=== PATIENT | male | born 1970 | race Caucasian/White ===

== ENCOUNTER 2018-03-04 01:46 | Outpatient (CLI) | payer OTHER, SELFPAY ==
[2018-03-04 11:15] LABS: INR 2.6 (1.0-3.5); Prothrombin Time 24.5 sec (9.3-10.8)
== END 2018-03-04 02:06 ==
PROVIDERS: PCP Family Medicine; Visit Provider Family Medicine
DX: I26.99 Other pulmonary embolism without acute cor pulmonale (principal); Z79.01 Long term (current) use of anticoagulants
CPT/HCPCS: 36415; 85610

== ENCOUNTER 2018-04-03 02:50 | Outpatient (CLI) | payer OTHER, SELFPAY ==
[2018-04-03 13:25] LABS: INR 2.2 (1.0-3.5); Prothrombin Time 20.9 sec (9.3-10.8)
== END 2018-04-03 03:10 ==
PROVIDERS: PCP Family Medicine; Visit Provider Family Medicine
DX: I26.99 Other pulmonary embolism without acute cor pulmonale (principal); Z79.01 Long term (current) use of anticoagulants
CPT/HCPCS: 36415; 85610

== ENCOUNTER 2018-05-06 01:42 | Outpatient (CLI) | payer OTHER, SELFPAY ==
[2018-05-06 10:44] LABS: INR 2.2 (1.0-3.5); Prothrombin Time 21.2 sec (9.3-10.8)
== END 2018-05-06 02:02 ==
PROVIDERS: PCP Family Medicine; Visit Provider Family Medicine
DX: I26.99 Other pulmonary embolism without acute cor pulmonale (principal); Z79.01 Long term (current) use of anticoagulants
CPT/HCPCS: 36415; 85610

== ENCOUNTER 2018-06-09 02:06 | Outpatient (CLI) | payer OTHER, SELFPAY ==
[2018-06-09 11:19] LABS: INR 2.5 (1.0-3.5); Prothrombin Time 23.5 sec (9.3-10.8)
== END 2018-06-09 02:26 ==
PROVIDERS: PCP Family Medicine; Visit Provider Family Medicine
DX: I26.99 Other pulmonary embolism without acute cor pulmonale (principal); Z79.01 Long term (current) use of anticoagulants
CPT/HCPCS: 36415; 85610

== ENCOUNTER 2018-07-08 01:08 | Outpatient (CLI) | payer OTHER, SELFPAY ==
[2018-07-08 11:59] LABS: Prothrombin Time 19.9 sec (9.3-11.0)
== END 2018-07-08 01:28 ==
PROVIDERS: PCP Family Medicine; Visit Provider Family Medicine
DX: I26.99 Other pulmonary embolism without acute cor pulmonale (principal)
CPT/HCPCS: 36415; 85610

== ENCOUNTER 2018-08-11 03:00 | Outpatient (CLI) | payer OTHER, SELFPAY ==
[2018-08-11 11:53] LABS: INR 2.7 (0.9-1.1); Prothrombin Time 26.8 sec (9.3-11.0)
== END 2018-08-11 03:20 ==
PROVIDERS: PCP Family Medicine; Visit Provider Family Medicine
DX: I26.99 Other pulmonary embolism without acute cor pulmonale (principal); Z79.01 Long term (current) use of anticoagulants
CPT/HCPCS: 36415; 85610

== ENCOUNTER 2018-08-25 18:45 | Outpatient (REF) | payer OTHER, SELFPAY | END 2018-08-25 19:05 | LOC: LBN 18:45 | PROVIDERS: PCP Family Medicine; Visit Provider Nurse Practitioner Family | DX: R05 Cough (principal) | CPT/HCPCS: 87070 ==

== ENCOUNTER 2018-09-09 03:04 | Outpatient (CLI) | payer OTHER, SELFPAY ==
[2018-09-09 10:56] LABS: INR 2.5 (0.9-1.1); Prothrombin Time 25.3 sec (9.3-11.0)
== END 2018-09-09 03:24 ==
PROVIDERS: PCP Family Medicine; Visit Provider Family Medicine
DX: I26.99 Other pulmonary embolism without acute cor pulmonale (principal); Z79.01 Long term (current) use of anticoagulants
CPT/HCPCS: 36415; 85610

== ENCOUNTER 2018-10-07 01:08 | Outpatient (CLI) | payer OTHER, SELFPAY ==
[2018-10-07 10:35] LABS: INR 2.3 (0.9-1.1)
== END 2018-10-07 01:28 ==
PROVIDERS: PCP Family Medicine; Visit Provider Family Medicine
DX: I26.99 Other pulmonary embolism without acute cor pulmonale (principal); Z79.01 Long term (current) use of anticoagulants
CPT/HCPCS: 36415; 85610

== ENCOUNTER 2018-11-10 02:00 | Outpatient (CLI) | payer OTHER, SELFPAY ==
[2018-11-10 12:25] LABS: INR 2.2 (0.9-1.1); Prothrombin Time 21.8 sec (9.3-11.0)
== END 2018-11-10 02:20 ==
PROVIDERS: PCP Family Medicine; Visit Provider Family Medicine
DX: I26.99 Other pulmonary embolism without acute cor pulmonale (principal); Z79.01 Long term (current) use of anticoagulants
CPT/HCPCS: 36415; 85610

== ENCOUNTER 2018-12-09 01:50 | Outpatient (CLI) | payer OTHER, SELFPAY ==
[2018-12-09 11:03] LABS: INR 2.6 (0.9-1.1); Prothrombin Time 26.3 sec (9.3-11.0)
== END 2018-12-09 02:10 ==
PROVIDERS: PCP Family Medicine; Visit Provider Family Medicine
DX: I26.99 Other pulmonary embolism without acute cor pulmonale (principal); Z79.01 Long term (current) use of anticoagulants
CPT/HCPCS: 36415; 85610

== ENCOUNTER 2019-01-13 01:56 | Outpatient (CLI) | payer OTHER, SELFPAY ==
[2019-01-13 11:19] LABS: INR 2.2 (0.9-1.1); Prothrombin Time 21.9 sec (9.3-11.0)
== END 2019-01-13 02:16 ==
PROVIDERS: PCP Family Medicine; Visit Provider Family Medicine
DX: I26.99 Other pulmonary embolism without acute cor pulmonale (principal); Z79.01 Long term (current) use of anticoagulants
CPT/HCPCS: 36415; 85610

== ENCOUNTER 2019-02-11 06:54 | Emergency (ER) | payer OTHER, SELFPAY ==
[2019-02-11 06:56] VITALS: BP 136/74; PULSE 96; RESP 16; TEMP 36.8; O2SAT 96
[2019-02-11] MEDS: Lidocaine 5% Patch 1 PATCH (07:32)
--- NOTE | 2019-02-11 07:57 | ED.GENADUL_ITS ---
Discharge Plan Disposition Patient Disposition: HOME Condition: Stable Discharge Details Chief Complaint: Nk/Back Pain Clinical Impression: Right flank pain Primary Care Provider: Emmanuel Yanes ED Provider: Caden Rojas Home Meds and New Rx's Prescriptions: New oxycodone 5 mg tablet 5 mg PO Q8H PRN (Reason: pain) Qty: 12 RF: 0 ondansetron 4 mg tablet,disintegrating 4 mg PO Q8H PRN (Reason: nausea and vomiting) Qty: 30 RF: 0 No Action atorvastatin 40 mg tablet 40 mg PO HS Qty: 90 RF: 4 triamcinolone acetonide 15 GM cream 15 gm Topical BID Qty: 30 RF: 2 chlorthalidone 25 mg tablet 25 mg PO DAILY Qty: 90 RF: 3 lisinopril 30 mg tablet 30 mg PO DAILY Qty: 90 RF: 3 metoprolol succinate [Toprol XL] 50 mg tablet extended release 24 hr 50 mg PO DAILY Qty: 90 RF: 3 warfarin 5 mg tablet 10 mg PO DAILY Qty: 100 RF: 5 Discharge Instructions Instructions: Back Pain (ED) Additional Instructions: follow up with your primary care provider within 1- 2 weeks. You should also have your inr rechecked as it was mildly elevated today if you have severe worsening pain, weakness, difficulty urinating or feel more ill return to the emergency department take 1000mg tylenol every 6 hours and occasional doses of 600mg ibuprofen as needed Stand Alone Forms: Physical Therapy Referral Medical Decision Making 49 yo male with hx of PE on coumadin sciatica, htn, who comes in with chief complaint of left lower back pain for a week with no trauma or falls. Denies fevers, chills, difficulty urinating or changes in bowel habits. He has no hx of ivdu per pt. HE denies abdominal pain or vomit, no chest pain or sob. HE does appear uncomfortable, has pain with palpation to the left lower back, no midline back tenderness, no saddle anesthesia. Based on hx and exam unlikely cauda equina or sea. I suspect muscle spasm but given his degree of pain will image to eval for possible kidney stone ct shows no acute process per Dr. Whittington, has nonbostructing left kidney stone. He does feel better after opiates and continues to have reassuring neuro exam so do not feel mri inidciated. suspect lumbar strain vs muscle spasm. Given his degree of pain will prescribe short course of opiates after discussion of risks/benefits. Will also have him start pt and f/u with pcp and return precautions given Differential Diagnosis kidney stone, muscle spasm Imaging Data Radiologic Study: Attestation: I personally reviewed and interpreted this imaging study as follows: Imaging: CT Scan Radiologist's impression: per dr. whittington no significant acute abnormalities Lab Data Lab results reviewed: Yes I reviewed the patient's lab results. HPI General Mode of arrival: ambulatory . Date/Time Provider Initiated Documentation: 02/11/19 07:50 . Limitations to Documentation: no limitations . Information obtained by: patient . History of Present Illness 49 year old M presents to the emergency department with the chief complaint of lower back pain, described as moderate, Quality is described as aching, and it has been constant. No relieving factors improve symptom(s), No exacerbating factors reported . Patient did receive the following treatments prior to arrival, none Related Data Home Medications Medication Instructions Recorded Confirmed triamcinolone acetonide 15 gm TOPICAL BID #30 g 07/29/17 02/11/19 chlorthalidone 25 mg tablet 25 mg PO DAILY #90 tab-cap 09/01/18 02/11/19 lisinopril 30 mg tablet 30 mg PO DAILY #90 tab-cap 09/01/18 02/11/19 metoprolol succinate 50 mg 50 mg PO DAILY #90 tab 11/25/18 02/11/19 tablet,extended release 24 hr warfarin 5 mg tablet 10 mg PO DAILY #100 tab 01/05/19 02/11/19 atorvastatin 40 mg tablet 40 mg PO HS #90 tab 01/29/19 02/11/19 ondansetron 4 mg PO Q8H PRN #30 tab 02/11/19 oxycodone 5 mg PO Q8H PRN #12 tab 02/11/19 Previous Rx's Medication Instructions Recorded triamcinolone acetonide 15 gm TOPICAL BID #30 g 07/29/17 chlorthalidone 25 mg tablet 25 mg PO DAILY #90 tab-cap 09/01/18 lisinopril 30 mg tablet 30 mg PO DAILY #90 tab-cap 09/01/18 metoprolol succinate 50 mg 50 mg PO DAILY #90 tab 11/25/18 tablet,extended release 24 hr warfarin 5 mg tablet 10 mg PO DAILY #100 tab 01/05/19 atorvastatin 40 mg tablet 40 mg PO HS #90 tab 01/29/19 ondansetron 4 mg PO Q8H PRN #30 tab 02/11/19 oxycodone 5 mg PO Q8H PRN #12 tab 02/11/19 Allergies Allergy/AdvReac Type Severity Reaction Status Date / Time No Known Allergies Allergy Verified 02/11/19 07:01 General Stated Complaint: Nk/Back Pain LINDY: 4 Review of Systems Review of Systems All systems reviewed & are unremarkable except as noted in HPI and below Constitutional Denies chills, Denies fever(s) and Denies weakness Cardiovascular Denies chest pain and Denies dyspnea Respiratory Denies cough and Denies dyspnea Gastrointestinal Denies abdominal pain, Denies nausea and Denies vomiting Musculoskeletal Denies joint swelling Neurologic Denies weakness PFSH Family History Mother No problems noted. Father No problems noted. Sister No problems noted. Grandfather Stroke Grandfather No problems noted. Grandmother Heart disease Stroke Grandmother No problems noted. Social History Smoking/Tobacco Use Status: Current every day Tobacco Type: cigarettes Alcohol Intake: never Drug use: Never Do you feel safe at home: Yes Do you feel safe in your relationship?: Yes Exam Const General: other (uncomfortable, in pain) Orientation: alert HENMT Head: normal to inspection Ears: external ears normal General nose exam: external nose normal Mouth: moist mucous membranes Eyes General: appearance normal, both eyes and all related structures Neck Neck: normal visual inspection Resp Effort & Inspection: normal respiratory effort and able to speak in complete sentences Cardio Rate: regular rate Skin General skin exam: no rashes or lesions noted Neuro General: alert and oriented x3 Extrem General: normal to inspection Psych Mental Status: mental status grossly normal Course Vital Signs Temperature 36.8 C 02/11/19 06:56 Pulse 96 H 02/11/19 06:56 Respiratory Rate 16 02/11/19 06:56 Blood Pressure 136/74 02/11/19 06:56 Pulse Oximetry 96 02/11/19 06:56 Temperature 36.8 C 02/11/19 06:56 Temperature Source Skin 02/11/19 06:56 Pulse 96 H 02/11/19 06:56 Respiratory Rate 16 02/11/19 06:56 Respiratory Effort Non-Labored 02/11/19 07:00 Blood Pressure 136/74 02/11/19 06:56 Blood Pressure Position Sitting 02/11/19 06:56 Pulse Oximetry 96 02/11/19 06:56 Oxygen Delivery Method Room Air 02/11/19 06:56 Oxygen Flow Rate 0 02/11/19 06:56 Pain Level 10 02/11/19 07:19
[2019-02-11 08:18] LABS: Bilirubin Negative (Negative); Blood Trace-intact (Negative); Clarity Clear (Clear); Glucose Negative (Negative); Ketones Negative (Negative); Leukocyte Esterase Negative (Negative); Nitrite Negative (Negative); Specific Gravity 1.015 (1.005-1.025); Urobilinogen 0.2 EU/dL (Up TO 0.2)
[2019-02-11 08:28] LABS: Bacteria Moderate HPF (Negative); C & S Indicated? No; Casts Negative LPF (Negative); Crystals Negative HPF (Negative); Epithelial Cells Negative HPF (Negative); Mucus Heavy (Negative); Other Cells Rare Renal (Negative); WBC 0-2 HPF (0-5)
[2019-02-11] MEDS: HYDROmorphone 2 MG/ML VIAL 1 MG IVP ×3 (08:32→08:50)
[2019-02-11 08:36] LABS: Abs Immature Grans 0.02 k/cumm (0.0-0.09); Absolute Basophil Count 0.06 k/cumm (0.0-0.2); Absolute Eosinophil Count 0.26 k/cumm (0.0-0.7); Absolute Lymphocyte Count 2.24 k/cumm (1.2-3.4); Absolute Monocyte Count 1.04 k/cumm (0.11-0.7); Absolute Neutrophil Count 6.46 k/cumm (1.2-6.7); Basophils % 0.6; Eosinophils % 2.6; HCT 45.5 % (40.0-50.0); HGB 15.1 g/dL (13.5-17.5); Immature Grans % 0.2; Lymphocytes % 22.2; Mean Corp. HGB Concentration 33.2 g/dL (32.0-36.0); Mean Corpuscular Hemoglobin 29.4 pg (27.0-33.0); Mean Corpuscular Volume 88.7 fL (80-95); Mean Platelet Volume 10.4 fL (8.0-11.0); Monocytes % 10.3; Neutrophils % 64.1; Platelet Count 233 x1000/uL (130-400); RBC 5.13 m/cumm (4.50-6.00); RBC Distribution Width 14.2 % (11.8-14.1); White Blood Cell Count 10.08 k/cumm (4.4-10.8)
[2019-02-11 08:52] LABS: INR 3.4 (0.9-1.1); PTT Activated 42.2 sec (21.0-31.4); Prothrombin Time 34.8 sec (9.3-11.0)
[2019-02-11 09:02] LABS: ALT 37 U/L (12-78); AST 24 U/L (15-37); Albumin 3.5 g/dL (3.4-5.0); Alkaline Phosphatase 51 U/L (46-116); Anion Gap 8.3 mmol/L (3-11); BUN 18 mg/dL (7-18); Bilirubin, Total 0.4 mg/dL (0.2-1.0); CO2 30.7 mmol/L (21.0-32.0); CREATININE 1.12 mg/dL (0.70-1.30); Calcium 9.1 mg/dL (8.5-10.1); Chloride 103 mmol/L (98-107); Glucose 108 mg/dL (70-100); Sodium 142 mmol/L (136-145); Total Protein 7.6 g/dL (6.4-8.2)
--- NOTE | 2019-02-11 09:05 | DI.CT_ITS ---
SYMPTOM/DIAGNOSIS: RIGHT FLANK, AND ABDOMEN PAIN ABDOMINAL AND PELVIC CT: 02/11/19 CT examination of the abdomen and pelvis was performed with a bolus infusion of 125 cc Omnipaque 350. Images obtained through the lung bases were unremarkable. Note is made of a bilateral L-5 spondylolysis with slight anterior spondylolisthesis of L5 on S1. The liver and spleen are normal in appearance. Pancreas appears normal. Gallbladder and bile ducts appear normal. There are small low attenuation bilateral adrenal nodules, measuring 15 mm on the right and 20 mm on the left, and these are likely to be benign. Kidneys are unremarkable in appearance except for a tiny nonobstructing left renal mid pole calculus. No hydronephrosis. No ureterolithiasis. Urinary bladder is essentially empty. Normal appearance of the appendix. No evidence of obstruction or diverticulitis. Abdominal aorta is of normal diameter and no major vascular abnormalities seen. No abdominal or pelvic adenopathy. No significant abdominal wall hernia. CONCLUSION: Nonobstructing left renal calculus. No other significant findings.
[2019-02-11 09:14] VITALS: BP 125/85; PULSE 64; RESP 18; TEMP 36.5; O2SAT 96
--- NOTE | 2019-02-11 09:18 | NUR.NOTE ---
Nursing Note: 0910--c/o feeling hot--diaphoretic----Dr Rojas notified Vital Signs Temp Pulse Resp BP Pulse Ox 02/11/19 09:14 36.5 C 64 18 125/85 96 02/11/19 06:56 36.8 C 96 H 16 136/74 96
[2019-02-11] MEDS: Omnipaque 350 MG/ML 100 ML BTL IJ (09:44)
[2019-02-11] MEDS: Omnipaque 350 MG/ML 50 ML BTL IJ (09:44)
[2019-02-11] MEDS: Ondansetron 4 MG/2 ML VIAL (09:55)
[2019-02-11 10:26] VITALS: BP 126/72; PULSE 70; RESP 18; TEMP 36.5; O2SAT 95
== END 2019-02-11 10:28 | disposition home or self-care (01) ==
PROVIDERS: Emergency Provider Emergency Medicine; PCP Family Medicine
DX: R10.12 Left upper quadrant pain (principal); I10 Essential (primary) hypertension; Z86.711 Personal history of pulmonary embolism; Z79.01 Long term (current) use of anticoagulants
CPT/HCPCS: 36415; 80053; 96374; 96375; 99285; 74177; 81003; 81015; 85025; 85610; 85730; 99284; J2405; J3490; Q9967

== ENCOUNTER 2019-02-25 01:10 | Outpatient (CLI) | payer OTHER, SELFPAY ==
[2019-02-25 12:41] LABS: INR 2.4 (0.9-1.1); Prothrombin Time 24.1 sec (9.3-11.0)
[2019-02-25 12:57] LABS: CREATININE 1.09 mg/dL (0.70-1.30); Calculated LDL 56 mg/dL; Cholesterol 116 mg/dL (50-200); HDL Cholesterol 37 mg/dL (40-60); Potassium 3.6 mmol/L (3.5-5.1); Triglyceride 116 mg/dL (30-150)
== END 2019-02-25 01:30 ==
PROVIDERS: Family Medicine; PCP Family Medicine; Visit Provider Family Medicine
DX: I10 Essential (primary) hypertension (principal); I26.99 Other pulmonary embolism without acute cor pulmonale; Z79.01 Long term (current) use of anticoagulants
CPT/HCPCS: 36415; 80061; 82565; 84132; 85610

== ENCOUNTER 2019-03-31 02:22 | Outpatient (CLI) | payer OTHER, SELFPAY ==
[2019-03-31 12:02] LABS: INR 2.4 (0.9-1.1); Prothrombin Time 23.8 sec (9.3-11.0)
== END 2019-03-31 02:42 ==
PROVIDERS: PCP Family Medicine; Visit Provider Family Medicine
DX: I26.99 Other pulmonary embolism without acute cor pulmonale (principal); Z79.01 Long term (current) use of anticoagulants
CPT/HCPCS: 36415; 85610

== ENCOUNTER 2019-05-12 01:09 | Outpatient (CLI) | payer OTHER, SELFPAY ==
[2019-05-12 13:04] LABS: INR 2.4 (0.9-1.1); Prothrombin Time 23.8 sec (9.3-11.0)
== END 2019-05-12 01:29 ==
PROVIDERS: PCP Family Medicine; Visit Provider Family Medicine
DX: I26.99 Other pulmonary embolism without acute cor pulmonale (principal); Z79.01 Long term (current) use of anticoagulants
CPT/HCPCS: 36415; 85610

== ENCOUNTER 2019-06-09 01:54 | Outpatient (CLI) | payer OTHER, SELFPAY ==
[2019-06-09 11:34] LABS: INR 3.1 (0.9-1.1); Prothrombin Time 30.1 sec (9.3-11.0)
== END 2019-06-09 02:14 ==
PROVIDERS: PCP Family Medicine; Visit Provider Family Medicine
DX: I26.99 Other pulmonary embolism without acute cor pulmonale (principal); Z79.01 Long term (current) use of anticoagulants
CPT/HCPCS: 36415; 85610

== ENCOUNTER 2019-06-09 14:49 | Outpatient (CLI) | payer OTHER, SELFPAY ==
[2019-06-09 16:12] LABS: BUN 17 mg/dL (7-18); CREATININE 1.03 mg/dL (0.70-1.30)
== END 2019-06-09 15:09 ==
PROVIDERS: PCP Family Medicine; Visit Provider Otolaryngology
DX: R22.1 Localized swelling, mass and lump, neck (principal)
CPT/HCPCS: 36415; 84520; 82565

== ENCOUNTER 2019-06-15 02:41 | Outpatient (CLI) | payer OTHER, SELFPAY ==
--- NOTE | 2019-06-15 13:16 | DI.CT_ITS ---
EXAM: CT NECK W COMPARISON: CHEST 2 VIEWS PA,LAT from 01/19/2018 CLINICAL HISTORY: FIRM MASS LEFT SIDE OF NECK R22.1 TECHNIQUE: 40 cc Omnipaque 350 IV. COMPARISON: CT NECK W from 06/15/2019 FINDINGS: The exam is limited by the patient's body habitus. There is streak artifact at the level of the shoul ders and clavicles. There is a large ill-defined mass in the left supraclavicular region extending from the level of the clavicle posterior to the spine, measuring 5.7 x 5.3 x 5.8 cm. There is no definite bony destruction; however, there is limited detail due to the degree of artifact. There is attenuation of vessels runn ing through the mass. The left jugular and left subclavian vein are not well seen. The common carotid artery and subclavian artery appear patent. There are enlarged lymph nodes seen directly adjacent to and superior to the primary mass. The thyroid, parotid and submandibular glands appear normal. There is opacification of the right maxillary sinus. The visualized portions of the brain are grossly norm al. IMPRESSION: A 5.8 centimeter ill-defined mass in the left supraclavicular region, suspicious for carcinoma.
== END 2019-06-15 03:01 ==
PROVIDERS: PCP Family Medicine; Visit Provider Otolaryngology
DX: R22.1 Localized swelling, mass and lump, neck (principal)
CPT/HCPCS: 70491

== ENCOUNTER 2019-06-15 02:41 | Outpatient (CLI) | payer OTHER, SELFPAY ==
--- NOTE | 2019-06-15 12:58 | DI.CT_ITS ---
EXAM: CT CHEST W CLINICAL HISTORY: FIRM MASS LEFT SIDE OF NECK R22.1 TECHNIQUE: 70 cc Omnipaque 350 IV. COMPARISON: CT ABDOMEN PELVIS W from 02/11/2019 CT NECK W from 06/15/2019 FINDINGS: The left supraclavicular mass is only partially filled visualized. Please see neck CT report. Ther e is a 1.9 x 1.3 centimeter left-sided superior mediastinal node and a 1.3 centimeter in diameter rig ht paratracheal lymph node. No axillary or hilar adenopathy is seen. There are no pleural or pericard ial effusions. 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 The lungs appear clear. Degenerative changes are seen in the spine. There are 2 small low-density rounded lesions in t he left adrenal consistent with an adenoma; this is unchanged from previous abdomen and pelvic CT. T he liver shows fatty infiltration. IMPRESSION: Mildly enlarged lymph nodes in the superior mediastinum.
[2019-06-15] MEDS: Omnipaque 350 MG/ML 100 ML BTL IJ (13:18)
== END 2019-06-15 03:01 ==
PROVIDERS: PCP Family Medicine; Visit Provider Family Medicine
DX: R22.1 Localized swelling, mass and lump, neck (principal); R59.0 Localized enlarged lymph nodes; D35.02 Benign neoplasm of left adrenal gland; K76.0 Fatty (change of) liver, not elsewhere classified; D48.5 Neoplasm of uncertain behavior of skin
CPT/HCPCS: 71260; J3490

== ENCOUNTER 2019-06-17 01:21 | Outpatient (CLI) | payer OTHER, SELFPAY ==
[2019-06-17 11:10] LABS: INR 3.3 (0.9-1.1); Prothrombin Time 32.3 sec (9.3-11.0)
== END 2019-06-17 01:41 ==
PROVIDERS: PCP Family Medicine; Visit Provider Family Medicine
DX: I26.99 Other pulmonary embolism without acute cor pulmonale (principal); Z79.01 Long term (current) use of anticoagulants
CPT/HCPCS: 36415; 85610

== ENCOUNTER 2019-06-25 01:20 | Outpatient (CLI) | payer OTHER, SELFPAY ==
[2019-06-25 11:45] LABS: INR 2.4 (0.9-1.1); Prothrombin Time 23.2 sec (9.3-11.0)
== END 2019-06-25 01:40 ==
PROVIDERS: PCP Family Medicine; Visit Provider Family Medicine
DX: I26.99 Other pulmonary embolism without acute cor pulmonale (principal); Z79.01 Long term (current) use of anticoagulants
CPT/HCPCS: 36415; 85610

== ENCOUNTER 2019-08-10 02:16 | Outpatient (CLI) | payer OTHER, SELFPAY ==
[2019-08-10 11:10] LABS: INR 2.1 (0.9-1.1); Prothrombin Time 20.9 sec (9.3-11.0)
== END 2019-08-10 02:36 ==
PROVIDERS: PCP Family Medicine; Visit Provider Family Medicine
DX: I26.99 Other pulmonary embolism without acute cor pulmonale (principal); Z79.01 Long term (current) use of anticoagulants
CPT/HCPCS: 36415; 85610

== ENCOUNTER 2019-09-08 03:10 | Outpatient (CLI) | payer OTHER, SELFPAY ==
[2019-09-08 11:08] LABS: INR 2.4 (0.9-1.1); Prothrombin Time 23.5 sec (9.3-11.0)
== END 2019-09-08 03:30 ==
PROVIDERS: PCP Family Medicine; Visit Provider Family Medicine
DX: I26.99 Other pulmonary embolism without acute cor pulmonale (principal); Z79.01 Long term (current) use of anticoagulants
CPT/HCPCS: 36415; 85610

== ENCOUNTER 2019-10-14 01:47 | Outpatient (CLI) | payer OTHER, SELFPAY ==
[2019-10-14 14:48] LABS: INR 2.3 (0.9-1.1); Prothrombin Time 22.8 sec (9.3-11.0)
== END 2019-10-14 02:07 ==
PROVIDERS: PCP Family Medicine; Visit Provider Family Medicine
DX: I26.99 Other pulmonary embolism without acute cor pulmonale (principal); Z79.01 Long term (current) use of anticoagulants
CPT/HCPCS: 36415; 85610

== ENCOUNTER 2019-11-26 03:02 | Outpatient (RCR) | payer OTHER, SELFPAY ==
[2019-11-26] MEDS: Heparin 500 UNITS/5 ML SYRINGE IV (08:50)
[2019-11-26] MEDS: Normal Saline Flush 10 ML SYR IVP (08:50)
[2019-11-26 09:14] LABS: Abs Immature Grans 0.01 k/cumm (0.0-0.09); Absolute Basophil Count 0.07 k/cumm (0.0-0.2); Absolute Eosinophil Count 0.19 k/cumm (0.0-0.7); Absolute Lymphocyte Count 1.17 k/cumm (1.2-3.4); Absolute Monocyte Count 0.14 k/cumm (0.11-0.7); Absolute Neutrophil Count 1.45 k/cumm (1.2-6.7); Basophils % 2.3; Eosinophils % 6.3; HCT 41.4 % (40.0-50.0); HGB 13.5 g/dL (13.5-17.5); Immature Grans % 0.3 %; Lymphocytes % 38.6; Mean Corp. HGB Concentration 32.6 g/dL (32.0-36.0); Mean Corpuscular Hemoglobin 27.7 pg (27.0-33.0); Mean Platelet Volume 10.2 fL (8.0-11.0); Monocytes % 4.6; Neutrophils % 47.9; Platelet Count 275 x1000/uL (130-400); RBC 4.87 m/cumm (4.50-6.00); RBC Distribution Width 14.3 % (11.8-14.1); White Blood Cell Count 3.03 k/cumm (4.4-10.8)
[2019-11-26 09:24] LABS: INR 2.6 (0.9-1.1); Prothrombin Time 25.4 sec (9.3-11.0)
[2019-11-26 09:27] LABS: ALT 35 U/L (16-63); AST 19 U/L (15-37); Albumin 3.2 g/dL (3.4-5.0); Alkaline Phosphatase 42 U/L (46-116); Anion Gap 4.6 mmol/L (3-11); BUN 12 mg/dL (7-18); Bilirubin, Total 0.3 mg/dL (0.2-1.0); CO2 34.4 mmol/L (21.0-32.0); Calcium 8.8 mg/dL (8.5-10.1); Chloride 99 mmol/L (98-107); Glucose 140 mg/dL (74-106); Sodium 138 mmol/L (136-145); Total Protein 7.1 g/dL (6.4-8.2)
[2019-11-26 09:30] LABS: Potassium 2.9 mmol/L (3.5-5.1)
== END 2019-11-28 23:59 | disposition home or self-care (01) ==
LOC: INF 03:02
PROVIDERS: PCP Family Medicine; Visit Provider Nurse Practitioner Family
DX: Z86.718 Personal history of other venous thrombosis and embolism (principal); Z45.2 Encounter for adjustment and management of vascular access device
CPT/HCPCS: 36591; 80053; 85025; 85610

== ENCOUNTER 2019-12-08 13:12 | Inpatient (IN) | payer OTHER, SELFPAY ==
[2019-12-08] VITALS (43 sets, daily range): BP systolic 118–162; BP diastolic 45–85; PULSE 84–110; RESP 13–32; TEMP 36.3–37.5; O2SAT 92–97
--- NOTE | 2019-12-08 13:31 | ED.GENADUL_ITS ---
Discharge Plan Disposition Patient Disposition: [facility] INPATIENT Condition: Stable Discharge Details Chief Complaint: Abd Prob Clinical Impression: Neutropenia, Chronic anticoagulation, Bandemia, Supratherapeutic INR, Abdominal pain, Rectal bleeding, Status post chemotherapy Admit Date/Time: 12/08/19 16:15 Admit Provider: Janelle Sanz Attending Provider: Janelle Sanz Primary Care Provider: Emmanuel Yanes ED Provider: Francine Pineda Discharge Data Discharge Date/Time-TO BE ENTERED AT DEPARTURE: 12/08/19 18:12 Medical Decision Making 1345 -- 49-year-old male with history of morbid obesity, thoracic aortic aneurysm, pulmonary embolism on Coumadin, Hodgkin's lymphoma on chemotherapy presents for diffuse abdominal pain, blood in stool, intermittent chest pain or shortness of breath with exertion status post chemotherapy 1 week ago. EKG notes a rate of 102, sinus with no acute ST ischemic changes. Heart rate 110s. Patient appears uncomfortable. He is morbidly obese and has tenderness to the left abdomen. Hemoccult noted brown stool which was guaiac positive. Differential diagnosis includes colitis, gastroenteritis, pneumonia, PE, ACS. 1600 --labs and imaging reviewed. Patient neutropenic w/ WBC count of 0.86 and neutrophil 0.21. 5 bands. INR 8. Potassium 3.1. Magnesium 1.4. Will replete magnesium and potassium and give 2.5 mg vitamin K x1. Troponin negative. CT chest/abd/pelvis negative for acute process. Case d/w hospitalist who accepts patient for admission. Inquires about antibiotics or Neupogen. Case d/w [facility] oncology who does not recommend antibiotics at this time, unless a source is identified or patient develops a fever. Also no recommendations for Neupogen as the specific type of chemotherapy patient is taking in combination with Neupogen has risk for pulmonary toxicity. Pt reassessed - pain improved. Agreeable with plan for admission. Medical Records Medical records reviewed: Yes I reviewed the patient's medical records. Imaging Data Radiologic Study: Radiologist's impression: CT CHEST PE ABD PELVIS W CLINICAL HISTORY: sob, diffuse abd pain TECHNIQUE: Imaging Protocol: Axial computed tomography images with coronal and sagittal reformatted images were created and reviewed CONTRAST MATERIAL: Intravenous: Omnipaque 350 Contrast volume:125 mL Oral: No COMPARISON: CT CT ABDOMEN PELVIS W from 02/11/2019and CT neck from 06/15/2019 FINDINGS: CHEST: Tracheobronchial tree: Patent where visualized. Mediastinum and Martha: No dominant adenopathy or fluid collection. Pulmonary parenchyma: No consolidation or dominant measurable mass. No architectural distortion. Pleura: No effusion or pneumothorax. Heart: The heart is not dilated. No coronary artery calcifications are seen. No pericardial effusion. Aorta: Thoracic aorta non-dilated. No evidence of dissection. Pulmonary arteries: No evidence of a central pulmonary embolus. Lymph nodes: Within normal limits. Bones:Degenerative changes. Tubes, Catheters, and Lines: Portions of a [id number] catheter are seen the subcutaneous tissues of the right chest. The inferior aspect of the patient's left supraclavicular mass are again noted. There does not appear to be any change in the extent of disease on the images obtained. ABDOMEN: Liver: Fatty liver. Hepatomegaly. No measurable mass. Portal, Superior Mesenteric, and Splenic Veins: Unremarkable. Gallbladder and Biliary Tract: No radiodense calculus or dilation. Pancreas: Normal density, no abnormal calcifications or inflammatory process. Spleen: Splenic cysts. Adrenals: Stable adrenal nodules. Kidneys: Normal size, contour and axis. No radiodense stones or obstructive uropathy. No masses seen. Abdominal Aorta: Abdominal portion non-dilated. Atherosclerosis. Bowel: No obstruction or bowel wall thickening. No evidence of acute appendicitis. Peritoneal Cavity: No ascites, collection or mesenteric inflammatory response. Lymph Nodes: Within normal limits. Bones: Degenerative changes in the spine. L5 spondylolysis without spondylolisthesis. Soft Tissues: Unremarkable. PELVIS: Bladder: The urinary bladder is nondistended limiting evaluation. Reproductive Organs: Unremarkable as visualized. Lymph Nodes: Within normal limits. Bones: Please see above. IMPRESSION: 1. No acute abdominal or pelvic process. 2. Hepatomegaly and fatty liver. 3. No evidence of a pulmonary embolus, thoracic aortic dissection or aneurysm. 4. The left supraclavicular mass is incompletely imaged on this examination. 5. Findings were discussed with the emergency department on the date of the examination. Lab Data Lab results reviewed: Yes I reviewed the patient's lab results. ECG Data Attestation: I personally reviewed and interpreted this ECG (s) as follows: Interpretation: rate of 102 bpm, sinus, no acute ST elevation, incomplete RBBB, LAFB. IA 146, DPi015, QRS 112. HPI General Mode of arrival: wheelchair . Date/Time Provider Initiated Documentation: 12/08/19 13:12 . Limitations to Documentation: no limitations . Information obtained by: patient . HPI Narrative: Patient is a 49-year-old male with a history of morbid obesity, Hodgkin's lymphoma on chemotherapy, pulmonary embolism on Coumadin and hypertension presents to the ED with diffuse abdominal pain, decreased appetite, generalized weakness, blood in stool, intermittent chest pain and shortness of breath. He started chemo last month and states his last session was 1 week ago. He has had diffuse abdominal pain, worse in the left lower quadrant for the past 4 days. He states today he had a brown bowel movement and noted bright red specks of blood. He denies any known fever, nausea, vomiting or urinary symptoms. He states he is chronically short of breath but states this has been worse since starting chemo 1 month ago. He admits to intermittent chest pain with exertion. He also admits to watery brown diarrhea over the past week. He denies any recent travel or recent antibiotics. Related Data Home Medications Medication Instructions Recorded Confirmed chlorthalidone 25 mg tablet 25 mg PO DAILY #90 tab-cap 07/06/19 12/08/19 metoprolol succinate 50 mg 50 mg PO DAILY #90 tab 11/25/19 12/08/19 tablet,extended release 24 hr warfarin 5 mg tablet 10 mg PO DAILY #100 tab 12/02/19 12/08/19 acetaminophen 1,000 mg PO BID 12/08/19 12/08/19 ondansetron 4 mg PO Q8H PRN PRN 12/08/19 12/08/19 potassium chloride 40 meq PO BID 12/08/19 12/08/19 prochlorperazine maleate 10 mg PO Q6H PRN PRN 12/08/19 12/08/19 Previous Rx's Medication Instructions Recorded chlorthalidone 25 mg tablet 25 mg PO DAILY #90 tab-cap 07/06/19 metoprolol succinate 50 mg 50 mg PO DAILY #90 tab 11/25/19 tablet,extended release 24 hr warfarin 5 mg tablet 10 mg PO DAILY #100 tab 12/02/19 Allergies Allergy/AdvReac Type Severity Reaction Status Date / Time No Known Allergies Allergy Verified 12/08/19 13:25 General Stated Complaint: Abd Prob LINDY: 2 Review of Systems All systems reviewed & are unremarkable except as noted in HPI and below Constitutional Constitutional: Reports as per HPI, Denies chills and Denies fever(s) Eyes Eyes: Denies blurry vision ENT Ears, Nose, Mouth, and Throat: Denies dizziness, Denies sore throat and Denies throat swelling Cardiovascular Cardiovascular: Denies chest pain and Denies dyspnea Respiratory Respiratory: Denies cough and Denies dyspnea Gastrointestinal Gastrointestinal: Denies abdominal pain, Denies diarrhea and Denies vomiting Genitourinary Genitourinary: Denies hematuria and Denies dysuria Musculoskeletal Musculoskeletal: Denies back pain and Denies numbness Integumentary/Breasts Skin/Breast: Denies lesions and Denies rash Neurologic Neurologic: Denies dizziness, Denies localized weakness and Denies numbness Allergic/Immunologic Allergic/Immunologic: Denies throat swelling [facility] Medical History (Updated 12/08/19 @ 19:43 by Janelle Sazn MD) 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 Father No problems noted. Sister No problems noted. Maternal Grandfather Stroke Paternal Grandfather No problems noted. Maternal Grandmother Heart disease Stroke Paternal Grandmother No problems noted. Other Adopted Social History (Updated 07/06/19 @ 13:43 by Beau Faust) Smoking/Tobacco Use Status: Former Tobacco Use Quit Date: 09/08/19 Alcohol Intake: never Drug use: Never Substance use type: does not use Caregiver/Support person: No Household members: significant other Housing: house Do you need help understanding health information?: Never Pets and animals: No Sexually active: Yes Do you think of yourself as: straight/heterosexual Current gender identity: decline to answer What is your relationship status?: living with partner How often do you talk on the phone with friends or family?: decline to answer How often do you get together with friends or relatives?: decline to answer How often do you attend yazidism or scientologist services?: decline to answer Do you belong to any clubs or organized social groups?: decline to answer Panel score (0-1 are the most socially isolated patients): 1 What type of physical activity do you participate in: walking Duration: decline to answer Frequency: decline to answer Morelia/Hoahaoism: No preference Special morelia needs: No Seatbelt use: always Drive intox or ride w/intox 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 Do you feel safe at home: Yes Do you feel safe in your relationship?: Yes Exam Const General: cooperative Nutritional Appearance: obese morbidly obese Orientation: alert, awake and oriented x3 HENMT Head: normal to inspection Face and sinus: normal facial exam Eyes General: appearance normal, both eyes and all related structures EOM: EOM intact bilaterally Neck Neck: normal visual inspection and No submandibular swelling Lymphatic: no lymphadenopathy noted Chest Chest: normal inspection of the chest and no tenderness Resp Effort & Inspection: normal respiratory effort and able to speak in complete sentences Auscultation: clear to auscultation bilaterally Cardio Rate: regular rate Rhythm: regular rhythm GI Inspection: normal to inspection and obesity Palpation: soft, not firm, not rigid and tender in the LLQ and in the LUQ Auscultation: hypoactive bowel sounds Rectal Exam: visual inspection normal and heme positive stool trace Male General Exam: Yes normal external exam Penis: normal penis Scrotum: scrotum normal Skin General skin exam: no rashes or lesions noted Neuro General: patient alert, patient awake and patient oriented x3 Cognition: normal cognition Speech: speech normal Motor: muscle tone normal throughout Sensory Exam: no sensory deficits noted Extrem General: normal to inspection, full ROM, capillary refill normal, no calf tender ness bilaterally and no edema Psych Appearance: grossly normal Mental Status: mental status grossly normal Speech and Movement: speech and movement normal Affect: normal affect Course Vital Signs Vital signs: Vital Signs Temperature 97.9 F 12/08/19 13:18 Pulse 110 H 12/08/19 13:18 Blood Pressure 162/82 H 12/08/19 13:18 Pulse Oximetry 96 12/08/19 13:18 Temperature 97.9 F 12/08/19 13:18 Temperature Source Temporal Artery Scan 12/08/19 13:18 Pulse 110 H 12/08/19 13:18 Respiratory Effort 12/08/19 13:23 Blood Pressure 162/82 H 12/08/19 13:18 Blood Pressure Position Sitting 12/08/19 13:18 Pulse Oximetry 96 12/08/19 13:18 Oxygen Delivery Method Room Air 12/08/19 13:18 Oxygen Flow Rate 0 12/08/19 13:18 Pain Level 6 12/08/19 13:18
[2019-12-08 13:46] LABS: HGB 13.1 g/dL (13.5-17.5); Mean Corp. HGB Concentration 32.8 g/dL (32.0-36.0); Mean Corpuscular Hemoglobin 27.5 pg (27.0-33.0); Mean Platelet Volume 10.5 fL (8.0-11.0); Platelet Count 249 x1000/uL (130-400); RBC 4.76 m/cumm (4.50-6.00); RBC Distribution Width 14.9 % (11.8-14.1)
[2019-12-08 14:00] LABS: ALT 32 U/L (16-63); AST 25 U/L (15-37); Albumin 3.2 g/dL (3.4-5.0); Alkaline Phosphatase 41 U/L (46-116); Anion Gap 8.8 mmol/L (3-11); BUN 12 mg/dL (7-18); Bilirubin, Total 0.5 mg/dL (0.2-1.0); CO2 31.2 mmol/L (21.0-32.0); CREATININE 1.28 mg/dL (0.70-1.30); Calcium 9.2 mg/dL (8.5-10.1); Chloride 95 mmol/L (98-107); Estimated GFR 59.73 (mL/min/1.73m2); Glucose 343 mg/dL (74-106); Magnesium 1.4 mg/dL (1.8-2.4); Potassium 3.1 mmol/L (3.5-5.1); Sodium 135 mmol/L (136-145); Total Protein 6.8 g/dL (6.4-8.2)
[2019-12-08 14:01] LABS: Troponin I < 0.05 ng/mL (<0.06)
[2019-12-08] MEDS: Normal Saline 1,000 ML 1000 ML IV (14:16)
[2019-12-08] MEDS: Normal Saline Flush 10 ML SYR IVP ×3 (14:16→22:10)
[2019-12-08 14:18] LABS: White Blood Cell Count 0.86 k/cumm (4.4-10.8)
[2019-12-08 14:20] LABS: Absolute Eosinophil Count 0.05 k/cumm (0.0-0.7); Absolute Lymphocyte Count 0.52 k/cumm (1.2-3.4); Absolute Monocyte Count 0.08 k/cumm (0.11-0.7); Absolute Neutrophil Count 0.21 k/cumm (1.2-6.7)
[2019-12-08 14:21] LABS: Anisocytosis 1+; Diff Comment Manual Differential
[2019-12-08 14:31] LABS: PTT Activated 63.7 sec (21.0-31.4); Prothrombin Time 75.9 sec (9.3-11.0)
[2019-12-08] MEDS: Omnipaque 350 MG/ML 100 ML BTL IJ (15:23)
[2019-12-08] MEDS: Omnipaque 350 MG/ML 50 ML BTL IJ (15:32)
--- NOTE | 2019-12-08 15:33 | DI.CT_ITS ---
EXAM: CT CHEST PE ABD PELVIS W CLINICAL HISTORY: sob, diffuse abd pain TECHNIQUE: Imaging Protocol: Axial computed tomography images with coronal and sagittal reformatted images were created and reviewed CONTRAST MATERIAL: Intravenous: Omnipaque 350 Contrast volume:125 mL Oral: No COMPARISON: CT CT ABDOMEN PELVIS W from 02/11/2019and CT neck from 06/15/2019 FINDINGS: CHEST: Tracheobronchial tree: Patent where visualized. Mediastinum and Martha: No dominant adenopathy or fluid collection. Pulmonary parenchyma: No consolidation or dominant measurable mass. No architectural distortion. Pleura: No effusion or pneumothorax. Heart: The heart is not dilated. No coronary artery calcifications are seen. No pericardial effusion. Aorta: Thoracic aorta non-dilated. No evidence of dissection. Pulmonary arteries: No evidence of a central pulmonary embolus. Lymph nodes: Within normal limits. Bones:Degenerative changes. Tubes, Catheters, and Lines: Portions of a [id number] catheter are seen the subcutaneous tissues o f the right chest. The inferior aspect of the patient's left supraclavicular mass are again noted. There does not appea r to be any change in the extent of disease on the images obtained. ABDOMEN: Liver: Fatty liver. Hepatomegaly. No measurable mass. Portal, Superior Mesenteric, and Splenic Veins: Unremarkable. Gallbladder and Biliary Tract: No radiodense calculus or dilation. Pancreas: Normal density, no abnormal calcifications or inflammatory process. Spleen: Splenic cysts. Adrenals: Stable adrenal nodules. Kidneys: Normal size, contour and axis. No radiodense stones or obstructive uropathy. No masses seen. Abdominal Aorta: Abdominal portion non-dilated. Atherosclerosis. Bowel: No obstruction or bowel wall thickening. No evidence of acute appendicitis. Peritoneal Cavity: No ascites, collection or mesenteric inflammatory response. Lymph Nodes: Within normal limits. Bones: Degenerative changes in the spine. L5 spondylolysis without spondylolisthesis. Soft Tissues: Unremarkable. PELVIS: Bladder: The urinary bladder is nondistended limiting evaluation. Reproductive Organs: Unremarkable as visualized. Lymph Nodes: Within normal limits. Bones: Please see above. IMPRESSION: 1. No acute abdominal or pelvic process. 2. Hepatomegaly and fatty liver. 3. No evidence of a pulmonary embolus, thoracic aortic dissection or aneurysm. 4. The left supraclavicular mass is incompletely imaged on this examination. 5. Findings were discussed with the emergency department on the date of the examination. RADIATION DOSE DELIVERED: 2,498mGy.cm Total DLP 2,498mGy.cm Total DLP DATA REPOSITORY: All CT scans at this facility are submitted to the National Radiology Data Registry (NRDR) Dose Index Registry (DIR) with the [employer] (ACR). RADIATION OPTIMIZATION: All CT scans at this facility use at least one of these dose optimization te chniques: automated exposure control; mA and/or kV adjustment per patient size (includes targeted exa ms where dose is matched to clinical indication); or iterative reconstruction.
[2019-12-08] MEDS: POTASSIUM CHLORIDE 20 MEQ/100 ML BAG 50 MEQ IVPB (15:50)
[2019-12-08] MEDS: MAGNESIUM SULFATE 1 GM/100 ML BAG IVPB (15:50)
[2019-12-08] MEDS: Phytonadione 5 MG TABLET 2.5 MG PO (15:56)
--- NOTE | 2019-12-08 17:33 | W.PM.HP.N ---
Date of service: 12/08/19 Time of Service: 17:33 Assessment and Plan Assessment and plan (1) Neutropenia: Status: Acute Assessment and plan: Will monitor for fever. Avoid GCSF due to its interaction with bleomycin. No antibiotics unless febrile, per [facility] hem/onc. Recheck in am. (2) Lower GI bleeding: Status: Acute Assessment and plan: In setting of diarrhea (due to chemo) and supratherapeutic INR. Will monitor H/H's. S/p vitamin K in ED - hold coumadin and recheck INR in am. Not a candidate for endoscopy while neutropenic, nor does he require it at this time. Place on tele. Clear liquids tonight. (3) Supratherapeutic INR: Status: Acute Assessment and plan: As above (4) Hodgkin lymphoma: Status: Chronic Assessment and plan: On chemo with ABVD. [facility] Hem/onc consulted by ED - will follow recommendations. Bleomycin interacts with GCSF. (5) Chest pain: Status: Acute Assessment and plan: Monitor on tele. Trend roponins. Obtain echo given the possibility of cardiac toxicity from chemo (6) Back pain: Status: Acute Assessment and plan: While it is likely musculoskeletal due the a change in the life style since chemo, we have to consider malignancy as well. For now, will treat with lidoderm patches and heat. If persists/worse tomorrow, consider imaging. (7) Hyperglycemia: Status: Acute Assessment and plan: Check A1C. Cover with corrective insulin. (8) DVT prophylaxis: Status: Acute Assessment and plan: INR supratherapeutic - not requiring (9) Discharge planning issues: Status: Acute Assessment and plan: Full code Check COVID-19 History of Present Illness History of Present Illness Chief Complaint: abdominal pain, diarrhea, blood in stool Narrative: Mr Rodriguez is a 49 year old male with Hodgkin's lymphoma, on chemotherapy with on ABVD chemotherapy regimen since October (last treatment 1 week ago), as well as h/o PE on coumadin, ascending aortic aneurysm (being watched by vascular surgery), hypertension, tobacco abuse, who presented to [facility] ED today complaining of abdominal pain with diarrhea which today had some a few small spots of blood in it. He also reports shortness of breath ever since chemo started, chest pains all over the chest, but sometimes L-sided and sharp, daily for a couple of minutes. Finally, he reports right lower back pain for the last couple of days without h/o trauma. He does admit being very sedentary at home for the last few days since his last chemo treatment 1 week ago. He was found to be afebrile but neutropenic with ANC of 0.21. His INR was 8. He was given vitamin K. [facility] hem/onc was consulted and recommendations were to admit the patient for observation with no antibiotics and to not use GCSF due to its interaction with bleomycin. Denies any known exposure or symptoms of COVID-19 other than the shortness of breaht which has been ongoing for several weeks. Review of Systems Narrative: 12 systems reviewed. Pertinent positives and negatives are as per HPI. Also, endorses urinary frequency, but no dysuria/hematuria. States that the abdominal pain has been in BLQ, but is gone at the time of the exam. [facility] Medical History (Updated 12/08/19 @ 19:43 by Janelle Sanz MD) 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 Father No problems noted. Sister No problems noted. Maternal Grandfather Stroke Paternal Grandfather No problems noted. Maternal Grandmother Heart disease Stroke Paternal Grandmother No problems noted. Other Adopted Social History (Updated 07/06/19 @ 13:43 by Beau Faust) Smoking/Tobacco Use Status: Former Tobacco Use Quit Date: 09/08/19 Alcohol Intake: never Drug use: Never Substance use type: does not use Caregiver/Support person: No Household members: significant other Housing: house Do you need help understanding health information?: Never Pets and animals: No Sexually active: Yes Do you think of yourself as: straight/heterosexual Current gender identity: decline to answer What is your relationship status?: living with partner How often do you talk on the phone with friends or family?: decline to answer How often do you get together with friends or relatives?: decline to answer How often do you attend jew or adventist services?: decline to answer Do you belong to any clubs or organized social groups?: decline to answer Panel score (0-1 are the most socially isolated patients): 1 What type of physical activity do you participate in: walking Duration: decline to answer Frequency: decline to answer Morelia/Denominational: No preference Special morelia needs: No Seatbelt use: always Drive intox or ride w/intox transit driver: No Do you feel safe at home: Yes Do you feel safe in your relationship?: Yes Meds Home Medications and Allergies Home Medications Medication Instructions Recorded Confirmed Type chlorthalidone 25 mg tablet 25 mg PO DAILY #90 tab-cap 07/06/19 12/08/19 Rx metoprolol succinate 50 mg 50 mg PO DAILY #90 tab 11/25/19 12/08/19 Rx tablet,extended release 24 hr warfarin 5 mg tablet 10 mg PO DAILY #100 tab 12/02/19 12/08/19 Rx acetaminophen 1,000 mg PO BID 12/08/19 12/08/19 History ondansetron 4 mg PO Q8H PRN PRN 12/08/19 12/08/19 History potassium chloride 40 meq PO BID 12/08/19 12/08/19 History prochlorperazine maleate 10 mg PO Q6H PRN PRN 12/08/19 12/08/19 History Allergies Allergy/AdvReac Type Severity Reaction Status Date / Time No Known Allergies Allergy Verified 12/08/19 13:25 Exam Narrative Exam Narrative: General: Very pleasant obese male, appears tired, but otherwise looks well Neurological: A&Ox3, no focal deficits Psychiatric: appropriate speech pattern/content Skin: acanthosis nigricans around neck, multiple skin tags and nevi, question of ecchymosis right lower back, but not where the pain is HEENT: Atraumatic, normocephalic, EOMI, dry MM, clear oropharynx, no submandibular or cervical lymphadenopathy, no goiter or JVD Cardiovascular: RRR, no m/r/g Lungs: CTAB Gastrointestinal: soft, nontender, nondistended Genitourinary: deferred Extremities: trace edema, no c/c BLE's, + 1 BLE pedal pulses Results Imaging Additional studies: CT achest, bdomen/pelvis with contrast: 1. No acute abdominal or pelvic process. 2. Hepatomegaly and fatty liver. 3. No evidence of a pulmonary embolus, thoracic aortic dissection or aneurysm. 4. The left supraclavicular mass is incompletely imaged on this examination. EKG: Sinus tachycardia, HR 102, nonspecific ST-T changes, no acute ischemia Labs Result diagrams: 12/08/19 13:35 12/08/19 13:35 Labs: Laboratory Results - last 24 hr 12/08/19 12/08/19 12/08/19 13:35 13:35 13:35 WBC 0.86 L* RBC 4.76 Hgb 13.1 L Hct 40.0 MCV 84.0 MCH 27.5 MCHC 32.8 RDW 14.9 H Plt Count 249 D MPV 10.5 Immature Gran % 0.0 Neutrophils % 19.0 Band Neutrophils % 5.0 Lymphocytes % 61.0 Monocytes % 9.0 Eosinophils % 6.0 Basophils % 0.0 Absolute Neutrophils 0.21 L* Absolute Lymphocytes 0.52 L Absolute Monocytes 0.08 L Absolute Eosinophils 0.05 Absolute Basophils 0.00 Differential Comment Manual differential RBC Morphology See below Anisocytosis 1+ PT 75.9 H INR 8.0 H* D APTT 63.7 H Sodium 135 L Potassium 3.1 L Chloride 95 L Carbon Dioxide 31.2 Anion Gap 8.8 BUN 12 Creatinine 1.28 Estimated GFR/1.73 m2 59.73 Glucose 343 H Calcium 9.2 Magnesium 1.4 L Total Bilirubin 0.5 AST 25 ALT 32 Alkaline Phosphatase 41 L Troponin I < 0.05 Total Protein 6.8 Albumin 3.2 L Patient ABO/Rh Antibody Screen 12/08/19 13:35 WBC RBC Hgb Hct MCV MCH MCHC RDW Plt Count MPV Immature Gran % Neutrophils % Band Neutrophils % Lymphocytes % Monocytes % Eosinophils % Basophils % Absolute Neutrophils Absolute Lymphocytes Absolute Monocytes Absolute Eosinophils Absolute Basophils Differential Comment RBC Morphology Anisocytosis PT INR APTT Sodium Potassium Chloride Carbon Dioxide Anion Gap BUN Creatinine Estimated GFR/1.73 m2 Glucose Calcium Magnesium Total Bilirubin AST ALT Alkaline Phosphatase Troponin I Total Protein Albumin Patient ABO/Rh O Positive Antibody Screen Negative Last Vital Signs Temp 36.6 C 12/08/19 13:18 Pulse 89 12/08/19 16:42 Resp 16 12/08/19 16:42 BP 126/45 L 12/08/19 16:42 Pulse Ox 93 L 12/08/19 16:42 COVID-19 Screening In the past 14 days, have you traveled outside of [place] or [place]?: NO Recent travel in the [facility] within the last 14 days?: No Recent out of the country travel within the last 14 days?: No Exposure or possible exposure to illness during travel?: No Had IN PERSON contact w/suspected or confirmed C-19 person: No Have you had the following symptoms in the past few days?: Yes Symptoms noted since travel?: Lower Respiratory
[2019-12-08] MEDS: MAGNESIUM SULFATE 2 GM/50 ML BAG IVPB (19:13)
[2019-12-08] MEDS: POTASSIUM CHLORIDE/0.9% NACL 1,000 ML 200 MEQ IV (19:13)
[2019-12-08] MEDS: Insulin Aspart 300 UNITS/3 ML PEN SC ×2 (19:14→22:11)
[2019-12-08 19:25] LABS: Bilirubin Negative (Negative); Blood Large (Negative); Clarity Cloudy (Clear); Glucose Negative (Negative); Ketones Negative (Negative); Leukocyte Esterase Negative (Negative); Nitrite Positive (Negative); Specific Gravity <= 1.005 (1.005-1.025); Urobilinogen 0.2 EU/dL (Up TO 0.2); pH 5.5 (5-8)
[2019-12-08 19:46] LABS: WBC 20-50 HPF (0-5)
[2019-12-08 19:47] LABS: Bacteria Moderate HPF (Negative); C & S Indicated? Yes; Crystals Other HPF (Negative); Epithelial Cells Rare HPF (Negative); Mucus Negative (Negative); RBC >50 HPF (0-2)
[2019-12-08] MEDS: Potassium Chloride Liquid 20 MEQ PKT 40 MEQ PO (20:28)
[2019-12-08] MEDS: Acetaminophen 500 MG TAB 1000 MG PO (20:28)
[2019-12-08] MEDS: Lidocaine 5% Patch 1 PATCH TP (20:29)
[2019-12-08 20:30] LABS: HCT 36.5 % (40.0-50.0)
[2019-12-08 22:32] LABS: Troponin I < 0.05 ng/mL (<0.06)
[2019-12-09] VITALS (7 sets, daily range): BP systolic 126–145; BP diastolic 78–85; PULSE 87–100; RESP 18–24; TEMP 36.4–38.4; O2SAT 96–98
[2019-12-09] MEDS: POTASSIUM CHLORIDE/0.9% NACL 1,000 ML 200 MEQ IV ×2 (01:57→07:14)
[2019-12-09] MEDS: Patch Removal 1 EACH TP (05:00)
[2019-12-09 05:55] LABS: Absolute Basophil Count 0.05 k/cumm (0.0-0.2); Absolute Eosinophil Count 0.02 k/cumm (0.0-0.7); Absolute Lymphocyte Count 0.68 k/cumm (1.2-3.4); Absolute Monocyte Count 0.05 k/cumm (0.11-0.7); Basophils % 5.8; Eosinophils % 2.3; HCT 36.7 % (40.0-50.0); HGB 12.1 g/dL (13.5-17.5); Lymphocytes % 79.1; Mean Corpuscular Hemoglobin 27.8 pg (27.0-33.0); Mean Corpuscular Volume 84.4 fL (80-95); Mean Platelet Volume 10.7 fL (8.0-11.0); Monocytes % 5.8; Platelet Count 272 x1000/uL (130-400); RBC 4.35 m/cumm (4.50-6.00)
[2019-12-09 06:03] LABS: Anion Gap 10.7 mmol/L (3-11); BUN 11 mg/dL (7-18); CO2 29.3 mmol/L (21.0-32.0); CREATININE 1.14 mg/dL (0.70-1.30); Calcium 8.4 mg/dL (8.5-10.1); Chloride 97 mmol/L (98-107); Glucose 202 mg/dL (74-106); Potassium 3.1 mmol/L (3.5-5.1); Sodium 137 mmol/L (136-145)
[2019-12-09 06:04] LABS: Prothrombin Time 56.1 sec (9.3-11.0)
[2019-12-09 06:09] LABS: INR 5.8 (0.9-1.1)
[2019-12-09 06:11] LABS: Magnesium 1.8 mg/dL (1.8-2.4); Troponin I < 0.05 ng/mL (<0.06)
[2019-12-09 06:14] LABS: Hemoglobin A1C 7.2 % (3.8-5.6)
[2019-12-09 06:29] LABS: White Blood Cell Count 0.86 k/cumm (4.4-10.8)
[2019-12-09 06:30] LABS: Absolute Neutrophil Count 0.06 k/cumm (1.2-6.7)
[2019-12-09 06:32] LABS: Diff Comment Diff Reviewed; RBC Morphology Normal
--- NOTE | 2019-12-09 08:00 | DI.US_ITS ---
APPROVED REPORT EXAM: Comprehensive 2D, Doppler, and color-flow Echocardiogram Patient Location: In-Patient Room/Bed: [facility] Home Companion: Kristy Louis RDCS (AE) Indications: Chest pain, Chemotherapy Other Information Study Quality: Technically Limited. Technically limited study due to body habitus. Conclusion Left Ventricle : The left ventricle is normal size. The left ventricular systolic function is normal. The left ventricular ejection fraction is within the normal range. Severe concentric left ventricula r hypertrophy. Left ventricular outflow tract gradient is present. There is normal LV segmental wall motion. The left ventricular diastolic function is normal. LVEF is 60-65%. Average global longitudin al strain is -13.5%. Right Ventricle : The right ventricle is normal size. The right ventricular systolic function is norm al. Atria : The left atrium size is normal. The right atrium size is normal. Aortic Valve : Aortic valve is probably trileaflet. There is mild aortic stenosis (mean gradient 16mm Hg) No aortic regurgitation is present. Great Vessels : Aortic root is mildly dilated. The ascending aorta is moderately dilated (4.1cm). Due to poor image quality, the IVC could not be assessed. Please see remainder of study for further details. Compared to echocardiogram from 01/20/2018, there is no significant change. Wall motion Left Ventricle The left ventricle is normal size. The left ventricular systolic function is normal. The left ventric ular ejection fraction is within the normal range. Severe concentric left ventricular hypertrophy. Le ft ventricular outflow tract gradient is present. There is normal LV segmental wall motion. The left ventricular diastolic function is normal. LVEF is 60-65%. Average global longitudinal strain is -13.5 %. Right Ventricle The right ventricle is normal size. The right ventricular systolic function is normal. Estimated RVSP is likely in the 15-20 range though right atrial pressure could not be estimated. Atria The left atrium size is normal. The right atrium size is normal. Aortic Valve Aortic valve is probably trileaflet. There is mild aortic stenosis (mean gradient 16mmHg) No aortic r egurgitation is present. Mitral Valve The mitral valve is normal in structure. No evidence of mitral valve stenosis. No Mitral Regurgitatio n. Tricuspid Valve The tricuspid valve is normal in structure. There is no tricuspid valve stenosis. Trace tricuspid reg urgitation. Pulmonic Valve The pulmonary valve is normal in structure. There is no pulmonic valvular stenosis. Trace pulmonic re gurgitation. Great Vessels Aortic root is mildly dilated. The ascending aorta is moderately dilated (4.1cm). Due to poor image q uality, the IVC could not be assessed. Pericardium Technically limited subcostal views. 2D Dimensions IVSD d PLAX 1.70 cm M: 0.6-1.2 LV Vol A2C d MOD 109.8 mL LVPW d PLAX 1.71 cm M: 0.6 - 1.2 LV Vol A4C d MOD 155.8 mL LVID d PLAX 4.70 cm M: 4.2 - 5.8 SV 80.30 mL LVDs 3.20 cm M: 2.5 - 4.0 SV Index 27.50 mL/m2 Ao Root d 3.91 cm M: 3.1 - 3.7 RA Area A4C 11.75 cm2 RA Vol/ BSA A4C s A-L 8.4 mL/m2 Ao Asc Diam d 4.12 cm M: 2.6 - 3.4 LV EF Molinaichnorma 59.0 % LVEF (Guzman's) 62.80 % M: 52 - 72 FS 31.25 % M-Mode TAPSE 2.80 cm (M/F) >1.7 LV Diastology MV E' medial 0.114 (>0.07 m/s) E/A Ratio 0.8 LV E/e MED 6.70 (<14) MV E Vmax 0.77 (0.4-1.3 m/s) MV E' lateral 0.109 (>0.1 m/s) MV A Vmax 1.00 (0.4-1.3 m/s) LV E/e LAT 7.00 (<14) MV E/A Ratio 0.75 MV E/E' medial 6.73 MV E/E' lateral 7.03 Aortic Valve LVOT Area 4.13 cm2 AoV Area Vmax 2.37 cm2 LVOT Vmax 1.56 m/s AoV Area/ BSA (Vmax) 0.81 cm2/m2 LVOT Mean Himanshu. 1.31 m/s JOSE Mean Himanshu. 2.73 cm2 LVOT Peak Grad 9.8 mmHg JOSE Mean Himanshu. Index 0.93 cm2/m2 LVOT Mean Grad 7.2 mmHg LVOT VTI 0.267 m LVOT Diam s 2.25 cm AoV Vmax 2.73 m/s Velocity Ratio 0.57 AoV Mean Himanshu. 1.99 m/s AoV Peak Grad 29.8 mmHg LVOT SV 110.21 mL AoV Mean Grad 17.3 mmHg AoV VTI 0.404 m AoV Area VTI 2.73 cm2 AoV Area/ BSA (VTI) 0.93 cm/m2 Mitral Valve MV DT 166 (160-240 msec) MV PHT 48 msec MV Area PHT 4.58 cm2 Pulmonary Valve PV Vmax 1.54 (0.5-1.5 m/s) RVOT Peak Gr. 8.41 mmHg PV Peak Grad 9.5 mmHg RVOT Mean Gr. 4.10 mmHg PV Mean Grad 5.8 mmHg RVOT VTI 0.227 m PV VTI 0.277 m RVOT Vmax 1.45 m/s Tricuspid Valve TR Peak Grad 13.7 mmHg TR Vmax 1.85 m/s
[2019-12-09 08:20] LABS: COVID-19 RT-PCR UVMMC Result Negative (Negative)
[2019-12-09] MEDS: Potassium Chloride Liquid 20 MEQ PKT 40 MEQ PO ×2 (08:27→19:30)
[2019-12-09] MEDS: Metoprolol CR 50 MG TABCR PO (08:27)
[2019-12-09] MEDS: Acetaminophen 500 MG TAB 1000 MG PO ×2 (08:27→19:29)
[2019-12-09] MEDS: Insulin Aspart 300 UNITS/3 ML PEN SC ×4 (08:28→21:05)
--- NOTE | 2019-12-09 08:56 | INITIAL_ITS ---
- If Service Date Differs Date of service: 12/10/19 Time of Service: 15:26 Care Management Initial Assess REASON FOR HOSPITALIZATION:: Neutropenia, GI bleeding, surpratherapeutic INR PAST MEDICAL HISTORY/PAST SURGICAL HISTORY:: Aneurysm, calculus of kidney, essential hypertension, hx of PE, hodgkin lymphoma, morbid obesity, sciatica, tobacco abuse, venous insufficiency, neck surgery PREVIOUS FUNCTIONAL STATUS/SOCIAL/FAMILY SUPPORTS:: Jarrod resides in his own home in [place] with his girlfriend of 28 years, Safia. 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 He reports that he has family who live locally that are supportive. He is independent with his ADLs and transportation and does not have any concerns about returning home at discharge. He shares that he had been working remotely through the quarantine but now plans on taking some time off. CURRENT FUNCTIONAL STATUS:: Jarrod was lying in bed, he is pleasant in interaction and curious if his chemo treatments are causing his current symptoms. He reports having chemo every two weeks, with a total of eight appointments scheduled. He reports underestimating the chemo, and though he has not been vomitting, he is weak for days and reports he curls up in position for a few days to recover. ADVANCE DIRECTIVES:: None on file at [facility]. Has patient been provided with info about the portal/API?: Yes Did the patient sign up for the portal?: No CODE STATUS:: Full Code INSURANCE COVERAGE / FINANCIAL ISSUES:: [facility] CURRENT HOME/COMMUNITY SERVICES/EQUIPMENT:: No current services or equipment. PRIMARY CARE PHYSICIAN:: Dr. Emmanuel Yanes POTENTIAL DISCHARGE NEEDS:: Follow up appointment with primary care provider. PATIENT/FAMILY EDUCATION NEEDS:: Discharge education, limitations and follow up plan of care. Ask Me Three discussion. ANTICIPATED BARRIERS TO DISCHARGE:: No anticipated barriers to discharge. TRANSPORTATION:: Jarrod will transport home via private vehicle with girlfriend, Safia, when medically cleared per MD. PLAN:: Jarrod will discharge home when medically ready per MD. Anticipate he will discharge home with no services and follow up with his oncologist and primary care provider. CM will continue to provide support with discharge planning considerations.
[2019-12-09] MEDS: MAGNESIUM SULFATE 2 GM/50 ML BAG IVPB (10:41)
[2019-12-09] MEDS: Normal Saline Flush 10 ML SYR IVP (12:20)
[2019-12-09] MEDS: POTASSIUM CHLORIDE 20 MEQ/100 ML BAG 50 MEQ IVPB ×2 (12:20→14:46)
--- NOTE | 2019-12-09 12:22 | PHACLINREV_ITS ---
Pharmacy Admission Review - Admission Clinical Review (Last Updated 12/08/19 @ 17:45 by Janelle Sanz MD) Back pain (Acute) Chest pain (Acute) Hyperglycemia (Acute) Discharge planning issues (Acute) DVT prophylaxis (Acute) Lower GI bleeding (Acute) Neutropenia (Acute) Chronic anticoagulation (Acute) Bandemia (Acute) Supratherapeutic INR (Acute) Abdominal pain (Acute) Rectal bleeding (Acute) Status post chemotherapy (Acute) No Known Allergies Allergy (Verified 12/08/19 13:25) Height 5 ft 11 in Weight 196.8 kg - Comments Comments/Follow Ups: Neutrapenia,GI Bleed, high INR, Cardiac issues (s/p Bleomycin therapy) New onset Diabetes - Renal Dosing Renal Dosing: BUN 11 mg/dL (7-18) 12/09/19 05:30 Creatinine 1.14 mg/dL (0.70-1.30) 12/09/19 05:30 Medications needing adjustments: Reviewed (est CrCl~83 mL/min Meds-OK) - Anticoagulation Anticoagulation: Hgb 12.1 g/dL (13.5-17.5) L 12/09/19 05:30 Hct 36.7 % (40.0-50.0) L 12/09/19 05:30 Plt Count 272 x1000/uL (130-400) 12/09/19 05:30 INR 5.8 (0.9-1.1) H* D 12/09/19 05:30 Creatinine 1.14 mg/dL (0.70-1.30) 12/09/19 05:30 Therapeutic Anticoagulation: Reviewed (Supratherapeutic INR (8) 5.8 now [facility] on HOLD) Medications: Warfarin - Opiate Usage Evaluate Pain Scale/Pains Meds: Reviewed (Tramadol) - Relevant Labs Sodium 137 mmol/L (136-145) 12/09/19 05:30 Potassium 3.1 mmol/L (3.5-5.1) L 12/09/19 05:30 Chloride 97 mmol/L (98-107) L 12/09/19 05:30 Magnesium 1.8 mg/dL (1.8-2.4) 12/09/19 05:30 Electrolytes, C-Reactive P, ESR: Reviewed (K+3.1 ( KCL 20mEq IV x 2 & KCL 40mEq PO BID replacemnt ordered)) - DM Control DM Control: Glucose 202 mg/dL (74-106) H D 12/09/19 05:30 Hemoglobin A1c 7.2 % (3.8-5.6) H 12/09/19 05:30 Finger Stick Blood Glucose 219 Finger Stick Blood Glucose 219 Finger Stick Blood Glucose 220 Finger Stick Blood Glucose 220 Insulin Dosing: Reviewed (On Aspart, DIAGNOSED WITH NEW ONSET DIABETES) - Heart Failure/MD Heart Failure/MD: Troponin I < 0.05 ng/mL (<0.06) 12/09/19 05:30 EF%, DARREN's, B-Blockers, Diuretics: Reviewed (TOPROL-XL) - BP Control BP Control: Blood Pressure 131/80 Blood Pressure 140/81 Blood Pressure 126/78 If elevated: Reviewed (TOPROL-XL 50MG PO DAILY) - Qtc Review If Elevated: Reviewed (QTc-498) - Home Meds Home Med List reviewed: Reviewed (CHLORTHALIDONE NOT ORDERED,CABRERA N on HOLD) - Comments Comments/Follow Ups: Oncologist told our hospitalist that Neulasta can not be used due to an interaction with a chemotherapy agent (?? did not eloborate)
--- NOTE | 2019-12-09 15:44 | W.PM.PROGNOT ---
Date of Service Date of service: 12/09/19 Time of Service: 15:44 Assessment and Plan Assessment and plan (1) Neutropenic fever: Status: Acute Assessment and plan: The only source of infection that has declared itself so far is urinary - though it is not clear if it is simply bacteriuria. Start ceftriaxone. Await blood culture result. (2) Bacteriuria: Status: Acute Assessment and plan: As above (3) Lower GI bleeding: Status: Acute Assessment and plan: In setting of supratherapeutic INR. H/H stable. Would not redose vitamin K at this point. Will advance diet. D/c Tele. Monitor H/H (4) Supratherapeutic INR: Status: Acute Assessment and plan: As above - better post vitamin K. Continue to hold coumadin. (5) Hodgkin lymphoma: Status: Chronic Assessment and plan: On chemo with ABVD. [facility] Hem/onc consulted by ED. Bleomycin interacts with GCSF. (6) Chest pain: Status: Acute Assessment and plan: ACS ruled out. Echo does not show change from prior to chemo. D/c tele. (7) Back pain: Status: Acute Assessment and plan: Improved with lidocaine patches/heat - likely MSK. (8) Hyperglycemia: Status: Acute Assessment and plan: Does have diabetes per A1C. clinical unit educator consulted. Plan to d/c on PO meds. (9) DVT prophylaxis: Status: Acute Assessment and plan: INR supratherapeutic - not requiring (10) Discharge planning issues: Status: Acute Assessment and plan: Full code Potential discharge home in 24 -48 hours Subjective Subjective Interval history since last seen: Denies dizziness, chest discomfort today, states his shortness of breath is unchanged from what he had 2 weeks ago and got worse with chemo. Denies nausea. STates had an episode of abdominal pain - resolved. Stools liquid, brown, C.Diff neg, hem +. Febrile to 38.1. Exam Narrative Exam Narrative: General: Pleasant, obese male, laying flat in bed, A&Ox3, appears slightly dyspneic HEENT: EOMI, MMM Heart: RRR, + SOPHIA Lungs: CTAB Abdomen: soft, nontender, nondistended Extremities: trace edema BLE's, no c/c Objective Objective Clinical Data: Abnormal lab results 12/08/19 12/08/19 12/09/19 Range/Units 18:30 20:20 05:30 WBC (4.4-10.8) k/cumm RBC (4.50-6.00) m/cumm Hgb 12.0 L (13.5-17.5) g/dL Hct 36.5 L (40.0-50.0) % RDW (11.8-14.1) % Absolute Neutrophils (1.2-6.7) k/cumm Absolute Lymphocytes (1.2-3.4) k/cumm Absolute Monocytes (0.11-0.7) k/cumm PT (9.3-11.0) sec INR (0.9-1.1) Potassium 3.1 L (3.5-5.1) mmol/L Chloride 97 L (98-107) mmol/L Glucose 202 H D (74-106) mg/dL Hemoglobin A1c (3.8-5.6) % Calcium 8.4 L (8.5-10.1) mg/dL Urine Protein 30 H (Negative) mg/dL Urine Blood Large H (Negative) Urine Nitrite Positive H (Negative) Urine RBC >50 H (0-2) HPF Urine WBC 20-50 H (0-5) HPF 12/09/19 12/09/19 12/09/19 Range/Units 05:30 05:30 05:30 WBC 0.86 L* (4.4-10.8) k/cumm RBC 4.35 L (4.50-6.00) m/cumm Hgb 12.1 L (13.5-17.5) g/dL Hct 36.7 L (40.0-50.0) % RDW 15.0 H (11.8-14.1) % Absolute Neutrophils 0.06 L* (1.2-6.7) k/cumm Absolute Lymphocytes 0.68 L (1.2-3.4) k/cumm Absolute Monocytes 0.05 L (0.11-0.7) k/cumm PT 56.1 H (9.3-11.0) sec INR 5.8 H* D (0.9-1.1) Potassium (3.5-5.1) mmol/L Chloride (98-107) mmol/L Glucose (74-106) mg/dL Hemoglobin A1c 7.2 H (3.8-5.6) % Calcium (8.5-10.1) mg/dL Urine Protein (Negative) mg/dL Urine Blood (Negative) Urine Nitrite (Negative) Urine RBC (0-2) HPF Urine WBC (0-5) HPF Vital Signs Temperature 38.1 C H 12/09/19 15:10 Temperature Source Tympanic 12/09/19 15:10 Pulse 98 H 12/09/19 15:10 Pulse 95 H 12/08/19 18:02 Respiratory Rate 20 12/09/19 15:10 Respiratory Effort Non-Labored 12/09/19 08:20 Respiratory Depth Normal 12/09/19 08:20 Respiratory Pattern Normal 12/09/19 08:20 Blood Pressure 136/79 12/09/19 15:10 Blood Pressure Mean 67 12/08/19 18:02 Blood Pressure Position Sitting 12/08/19 13:18 Pulse Oximetry 96 12/09/19 15:10 Oxygen Delivery Method Room Air 12/09/19 15:10 Oxygen Flow Rate 0 12/09/19 15:10 Pain Level 5 12/09/19 15:10 Intake & Output 12/08/19 12/09/19 12/09/19 23:59 11:59 23:59 Intake Total 1220 / 1220 2550 / 3910 1360 / 3910 Output Total 300 / 300 200 / 225 25 / 225 Balance 920 / 920 2350 / 3685 1335 / 3685 Weight 195.1 kg 196.8 kg Intake: IV 1220 / 1220 2100 / 2200 100 / 2200 Oral 450 / 1710 1260 / 1710 Output: Urine 300 / 300 200 / 225 25 / 225 Other: Urine Color Light Mayuri Light Mayuri Urine Appearance Cloudy Clear Urine Odor Strong Strong Comment voided directly in toilet. stool collected in hat. Stool Occult Blood Positive Positive Stool Size Smear Moderate Stool Characteristics Soft Soft Formed Liquid Brown Laboratory Results WBC 0.86 k/cumm (4.4-10.8) L* 12/09/19 05:30 RBC 4.35 m/cumm (4.50-6.00) L 12/09/19 05:30 Hgb 12.1 g/dL (13.5-17.5) L 12/09/19 05:30 Hct 36.7 % (40.0-50.0) L 12/09/19 05:30 MCV 84.4 fL (80-95) 12/09/19 05:30 MCH 27.8 pg (27.0-33.0) 12/09/19 05:30 MCHC 33.0 g/dL (32.0-36.0) 12/09/19 05:30 RDW 15.0 % (11.8-14.1) H 12/09/19 05:30 Plt Count 272 x1000/uL (130-400) 12/09/19 05:30 MPV 10.7 fL (8.0-11.0) 12/09/19 05:30 Immature Gran % 0.0 % 12/09/19 05:30 Neutrophils % 7.0 12/09/19 05:30 Band Neutrophils % 5.0 % 12/08/19 13:35 Lymphocytes % 79.1 12/09/19 05:30 Monocytes % 5.8 12/09/19 05:30 Eosinophils % 2.3 12/09/19 05:30 Basophils % 5.8 12/09/19 05:30 Absolute Neutrophils 0.06 k/cumm (1.2-6.7) L* 12/09/19 05:30 Absolute Lymphocytes 0.68 k/cumm (1.2-3.4) L 12/09/19 05:30 Absolute Monocytes 0.05 k/cumm (0.11-0.7) L 12/09/19 05:30 Absolute Eosinophils 0.02 k/cumm (0.0-0.7) 12/09/19 05:30 Absolute Basophils 0.05 k/cumm (0.0-0.2) 12/09/19 05:30 Differential Comment Diff reviewed 12/09/19 05:30 RBC Morphology Normal 12/09/19 05:30 Anisocytosis 1+ 12/08/19 13:35 PT 56.1 sec (9.3-11.0) H 12/09/19 05:30 INR 5.8 (0.9-1.1) H* D 12/09/19 05:30 APTT 63.7 sec (21.0-31.4) H 12/08/19 13:35 Sodium 137 mmol/L (136-145) 12/09/19 05:30 Potassium 3.1 mmol/L (3.5-5.1) L 12/09/19 05:30 Chloride 97 mmol/L (98-107) L 12/09/19 05:30 Carbon Dioxide 29.3 mmol/L (21.0-32.0) 12/09/19 05:30 Anion Gap 10.7 mmol/L (3-11) 12/09/19 05:30 BUN 11 mg/dL (7-18) 12/09/19 05:30 Creatinine 1.14 mg/dL (0.70-1.30) 12/09/19 05:30 Estimated GFR/1.73 m2 >= 60.00 (mL/min/1.73m2) 12/09/19 05:30 Glucose 202 mg/dL (74-106) H D 12/09/19 05:30 Hemoglobin A1c 7.2 % (3.8-5.6) H 12/09/19 05:30 Calcium 8.4 mg/dL (8.5-10.1) L 12/09/19 05:30 Magnesium 1.8 mg/dL (1.8-2.4) 12/09/19 05:30 Total Bilirubin 0.5 mg/dL (0.2-1.0) 12/08/19 13:35 AST 25 U/L (15-37) 12/08/19 13:35 ALT 32 U/L (16-63) 12/08/19 13:35 Alkaline Phosphatase 41 U/L (46-116) L 12/08/19 13:35 Troponin I < 0.05 ng/mL (<0.06) 12/09/19 05:30 Total Protein 6.8 g/dL (6.4-8.2) 12/08/19 13:35 Albumin 3.2 g/dL (3.4-5.0) L 12/08/19 13:35 Urine Color Yellow (Yellow) 12/08/19 18:30 Urine Clarity Cloudy (Clear) 12/08/19 18:30 Urine pH 5.5 (5-8) 12/08/19 18:30 Ur Specific [place] <= 1.005 (1.005-1.025) 12/08/19 18:30 Urine Protein 30 mg/dL (Negative) H 12/08/19 18:30 Urine Ketones Negative mg/dL (Negative) 12/08/19 18:30 Urine Blood Large (Negative) H 12/08/19 18:30 Urine Nitrite Positive (Negative) H 12/08/19 18:30 Urine Bilirubin Negative (Negative) 12/08/19 18:30 Urine Urobilinogen 0.2 EU/dL (Up TO 0.2) 12/08/19 18:30 Ur Leukocyte Esterase Negative (Negative) 12/08/19 18:30 Urine RBC >50 HPF (0-2) H 12/08/19 18:30 Urine WBC 20-50 HPF (0-5) H 12/08/19 18:30 Ur Epithelial Cells Rare HPF (Negative) 12/08/19 18:30 Urine Crystals Other HPF (Negative) 12/08/19 18:30 Urine Bacteria Moderate HPF (Negative) 12/08/19 18:30 Urine Mucus Negative (Negative) 12/08/19 18:30 Ur Culture Indicated? Yes 12/08/19 18:30 Urine Glucose Negative mg/dL (Negative) 12/08/19 18:30 COVID-19 PCR Negative (Negative) 12/08/19 17:28 Nasopharyn COVID-19 PCR Not Applicable 12/08/19 17:28 Ref Test Perform Site [facility] lab 12/08/19 17:28 Patient ABO/Rh O Positive 12/08/19 13:35 Antibody Screen Negative 12/08/19 13:35 Echo: Left Ventricle : The left ventricle is normal size. The left ventricular systolic function is normal. The left ventricular ejection fraction is within the normal range. Severe concentric left ventricular hypertrophy. Left ventricular outflow tract gradient is present. There is normal LV segmental wall motion. The left ventricular diastolic function is normal. LVEF is 60-65%. Average global longitudinal strain is -13.5%. Right Ventricle : The right ventricle is normal size. The right ventricular systolic function is normal. Atria : The left atrium size is normal. The right atrium size is normal. Aortic Valve : Aortic valve is probably trileaflet. There is mild aortic stenosis (mean gradient 16mmHg) No aortic regurgitation is present. Great Vessels : Aortic root is mildly dilated. The ascending aorta is moderately dilated (4.1cm). Due to poor image quality, the IVC could not be assessed. Please see remainder of study for further details. Compared to echocardiogram from 01/20/2018, there is no significant change.
[2019-12-09] MEDS: Acetaminophen 325 MG TAB 650 MG PO (16:29)
[2019-12-09] MEDS: cefTRIAXone 1 GM/50 ML BAG IVPB (16:29)
[2019-12-09] MEDS: Mylanta Suspension 30 ML CUP PO (19:29)
[2019-12-09] MEDS: Lidocaine 5% Patch 1 PATCH TP (19:30)
[2019-12-10] VITALS (7 sets, daily range): BP systolic 110–143; BP diastolic 60–86; PULSE 87–105; RESP 18–22; TEMP 36.8–38.3; O2SAT 93–99
[2019-12-10 03:46] LABS: Bilirubin Negative (Negative); Blood Large (Negative); Clarity Sl Cloudy (Clear); Glucose Negative (Negative); Ketones Negative (Negative); Leukocyte Esterase Negative (Negative); Nitrite Negative (Negative); Urobilinogen 0.2 EU/dL (Up TO 0.2); pH 5.5 (5-8)
[2019-12-10 03:50] LABS: Bacteria Few HPF (Negative); Crystals Negative HPF (Negative); Epithelial Cells Few HPF (Negative); Mucus Trace (Negative); Other Cells Negative (Negative); RBC 20-50 HPF (0-2); WBC 0-2 HPF (0-5)
[2019-12-10 03:51] LABS: C & S Indicated? No; Casts Negative LPF (Negative)
[2019-12-10 07:44] LABS: Absolute Monocyte Count 0.05 k/cumm (0.11-0.7); HCT 33.2 % (40.0-50.0); HGB 10.8 g/dL (13.5-17.5); Mean Corp. HGB Concentration 32.5 g/dL (32.0-36.0); Mean Corpuscular Hemoglobin 27.6 pg (27.0-33.0); Mean Corpuscular Volume 84.9 fL (80-95); Platelet Count 234 x1000/uL (130-400); RBC 3.91 m/cumm (4.50-6.00); RBC Distribution Width 15.1 % (11.8-14.1)
[2019-12-10 07:59] LABS: INR 3.6 (0.9-1.1); Prothrombin Time 34.6 sec (9.3-11.0)
[2019-12-10 08:11] LABS: White Blood Cell Count 0.64 k/cumm (4.4-10.8)
[2019-12-10 08:12] LABS: Absolute Eosinophil Count 0.01 k/cumm (0.0-0.7); Absolute Lymphocyte Count 0.51 k/cumm (1.2-3.4)
[2019-12-10] MEDS: Insulin Aspart 300 UNITS/3 ML PEN SC ×4 (08:12→22:18)
[2019-12-10 08:13] LABS: Absolute Basophil Count 0.01 k/cumm (0.0-0.2); Absolute Neutrophil Count 0.05 k/cumm (1.2-6.7); Diff Comment Manual Differential; RBC Morphology Normal
[2019-12-10 08:44] LABS: Anion Gap 7.9 mmol/L (3-11); BUN 9 mg/dL (7-18); CO2 31.1 mmol/L (21.0-32.0); CREATININE 1.01 mg/dL (0.70-1.30); Calcium 7.9 mg/dL (8.5-10.1); Chloride 97 mmol/L (98-107); Glucose 166 mg/dL (74-106); Magnesium 1.7 mg/dL (1.8-2.4); Sodium 136 mmol/L (136-145)
[2019-12-10 09:00] LABS: Potassium 2.8 mmol/L (3.5-5.1)
[2019-12-10] MEDS: Normal Saline Flush 10 ML SYR IVP ×3 (09:30→18:17)
[2019-12-10] MEDS: Potassium Chloride Liquid 20 MEQ PKT 40 MEQ PO ×2 (09:30→20:54)
[2019-12-10] MEDS: Acetaminophen 500 MG TAB 1000 MG PO ×2 (09:31→20:54)
[2019-12-10] MEDS: Metoprolol CR 50 MG TABCR PO (09:31)
[2019-12-10] MEDS: Patch Removal 1 EACH TP (09:35)
[2019-12-10] MEDS: POTASSIUM CHLORIDE 20 MEQ/100 ML BAG 50 MEQ IVPB ×3 (11:47→16:30)
[2019-12-10] MEDS: MAGNESIUM SULFATE 2 GM/50 ML BAG IVPB (11:53)
--- NOTE | 2019-12-10 13:20 | W.INDIABCONS ---
Date of service: 12/10/19 Time of Service: 13:21 Diabetes Inpatient Consult DESCRIPTION/ASSESSMENT: Received Diabetes EDducation consult for 49 year old male with non hodgkin's lymphoma undergoing chemotherapy with lower GI leed, neutropenia and hyper glycemia. Labs include elevated BS, A1C 7.2% indicating elevated blood sugars in last 90 days. Met with Jarrod. He reports poor intake due to nausea since starting chemo. BMI 60 indicating morbid obesity. Reports no recent weight loss. Estimated Needs: 2500 kcal, 100 g protein. Current intake poor. Reviewed need to meet nutrient intake requirements for mantaining immuner system, lean body mass. Explained that despite obesity, will need to meet nutrient and fluid needs for stamina while on chemotherapy. INTERVENTION: Provided education on DM including Hyper/hypoglycemia s/s with action plan for each scenario. Definition and types of CHO with examples, CHO counting, DASH diet materials, DM meal planning and label reading literature. Provided a blood sugar and food record chart and materials to reiterate CHO counting techniques. Reviewed desirable BG levels with patient with food choices and portions for optimal outcomes. Provided contact information for this RD and encouraged him to call with any f/u questions r/t to DM self management. CDM from kitchen has been helping to count CHO's and achieve intake of ~65g/CHO per meal period PLAN: Jarrod will follow up with brief writer as outpatient if needs further diabetes self management skills, Jarrod will monitor blood sugars at home as directed by MD. Time Spent in Nutritional Counseling and Treatment: 20 min
--- NOTE | 2019-12-10 14:23 | W.PM.PROGNOT ---
Date of Service Date of service: 12/10/19 Time of Service: 14:23 Assessment and Plan Assessment and plan (1) Neutropenic fever: Status: Acute Assessment and plan: Discussed with hem/onc. Start neupogen (there is a risk of increased pulmonary toxicity due to interaction with bleomycin, but in his case the benefits outweigh the risks) until ANC >500. Broaden abx, even though the source is likely urine. Await stool studies. Blood cx negative. C. diff negative. (2) Bacteriuria: Status: Acute Assessment and plan: As above E. Coli, pansensitive, and though there is no pyuria, neutropenic patients may not be able to mount it, per hem/onc, so in fact this represents a true UTI. Abx are being broadened to vancomycin/cefepime, as above. (3) Lower GI bleeding: Status: Acute Assessment and plan: In setting of supratherapeutic INR. H/H stable. Would not redose vitamin K at this point. Continue current diet. Monitor H/H (4) Diarrhea: Status: Acute Assessment and plan: Likely side effect of chemo. C.Diff negative. Stool studies pending. If negative, would start imodium. (5) Supratherapeutic INR: Status: Acute Assessment and plan: As above - better post vitamin K. Continue to hold coumadin. (6) Hodgkin lymphoma: Status: Chronic Assessment and plan: On chemo with ABVD. [facility] Hem/onc consulted by ED. Bleomycin interacts with GCSF (pulmonary toxicity), but benefits of neupogen outweigh rsks, per hem/onc, given febrile neutropenia. Start daily neupogen until ANC>500. (7) Chest pain: Status: Acute Assessment and plan: ACS ruled out. Echo does not show change from prior to chemo. Follow up as outpatient (8) Back pain: Status: Acute Assessment and plan: Improved with lidocaine patches/heat - likely MSK. (9) Hypokalemia: Status: Acute Assessment and plan: Likely due to diarrhea. Replete (10) Hypomagnesemia: Status: Acute Assessment and plan: Replete (11) Newly diagnosed diabetes: Status: Acute Assessment and plan: Diabetes education consulted. Treat with SSI for now. PO meds on discharge. (12) DVT prophylaxis: Status: Acute Assessment and plan: INR supratherapeutic - not requiring (13) Discharge planning issues: Status: Acute Assessment and plan: Full code Potential discharge home in 48 hours Subjective Subjective Interval history since last seen: Mr Rodriguez states he felt the fever last night (and was febrile all night indeed), but feels a lot better now. He is sad we are not discharging him home today. He denies dizziness, chest pain, shortness of breath, nausea. No abdminal pain. Still having diarrhea. It was heme negative x2 and heme positive once today (negative since). It is yellow. Stool studies are pending. Case was discussed with [facility] hem/onc. Given the fact that patient had a neutropenic fever, recommendations were to start neupogen 480 mg SC daily until ANC>500 and to broaden antibiotics, even though the source likely is the urine (he is not expected to mount pyuria if he is neutropenic, per hem/onc, and he does have bacteriuria). Exam Narrative Exam Narrative: General: Pleasant, obese male, laying flat in bed, A&Ox3, actually does look better today HEENT: EOMI, MMM Heart: RRR, + SOPHIA Lungs: CTAB Abdomen: soft, nontender, nondistended Extremities: trace edema BLE's, no c/c Objective Objective Clinical Data: Abnormal lab results 12/10/19 12/10/19 12/10/19 Range/Units 03:10 06:25 06:25 WBC (4.4-10.8) k/cumm RBC (4.50-6.00) m/cumm Hgb (13.5-17.5) g/dL Hct (40.0-50.0) % RDW (11.8-14.1) % Absolute Neutrophils (1.2-6.7) k/cumm Absolute Lymphocytes (1.2-3.4) k/cumm Absolute Monocytes (0.11-0.7) k/cumm PT 34.6 H D (9.3-11.0) sec INR 3.6 H D (0.9-1.1) Potassium 2.8 L* (3.5-5.1) mmol/L Chloride 97 L (98-107) mmol/L Glucose 166 H (74-106) mg/dL Calcium 7.9 L (8.5-10.1) mg/dL Magnesium 1.7 L (1.8-2.4) mg/dL Urine Protein 100 H (Negative) mg/dL Urine Blood Large H (Negative) Urine RBC 20-50 H (0-2) HPF 12/10/19 Range/Units 06:25 WBC 0.64 L* (4.4-10.8) k/cumm RBC 3.91 L (4.50-6.00) m/cumm Hgb 10.8 L (13.5-17.5) g/dL Hct 33.2 L (40.0-50.0) % RDW 15.1 H (11.8-14.1) % Absolute Neutrophils 0.05 L* (1.2-6.7) k/cumm Absolute Lymphocytes 0.51 L (1.2-3.4) k/cumm Absolute Monocytes 0.05 L (0.11-0.7) k/cumm PT (9.3-11.0) sec INR (0.9-1.1) Potassium (3.5-5.1) mmol/L Chloride (98-107) mmol/L Glucose (74-106) mg/dL Calcium (8.5-10.1) mg/dL Magnesium (1.8-2.4) mg/dL Urine Protein (Negative) mg/dL Urine Blood (Negative) Urine RBC (0-2) HPF Vital Signs Temperature 37.3 C 12/10/19 11:36 Temperature Source Tympanic 12/10/19 11:36 Pulse 97 H 12/10/19 11:36 Pulse Rhythm Regular 12/10/19 01:14 Pulse 95 H 12/08/19 18:02 Respiratory Rate 20 12/10/19 11:36 Respiratory Effort Non-Labored 12/10/19 01:14 Respiratory Depth Normal 12/10/19 01:14 Respiratory Pattern Normal 12/10/19 01:14 Blood Pressure 136/74 12/10/19 11:36 Blood Pressure Mean 67 12/08/19 18:02 Blood Pressure Position Sitting 12/08/19 13:18 Pulse Oximetry 95 12/10/19 11:36 Oxygen Delivery Method Room Air 12/10/19 11:36 Oxygen Flow Rate 0 12/10/19 11:36 Pain Level 0 12/10/19 11:36 Intake & Output 0612/10/19 12/10/19 23:59 11:59 23:59 Intake Total 2600 / 5150 480 / 720 240 / 720 Output Total 600 / 600 Balance 2575 / 4925 -120 / 120 240 / 120 Weight 196.5 kg Intake: IV 1100 / 3200 Oral 1500 / 1950 480 / 720 240 / 720 Output: Urine 600 / 600 Other: Urine Color Yellow Yellow Urine Appearance Clear Clear Stool Occult Blood Positive Negative Stool Size Large Moderate Stool Characteristics Soft Soft Liquid Formed Mucoid Brown Voiding Methods Toilet Toilet Laboratory Results WBC 0.64 k/cumm (4.4-10.8) L* 12/10/19 06:25 RBC 3.91 m/cumm (4.50-6.00) L 12/10/19 06:25 Hgb 10.8 g/dL (13.5-17.5) L 12/10/19 06:25 Hct 33.2 % (40.0-50.0) L 12/10/19 06:25 MCV 84.9 fL (80-95) 12/10/19 06:25 MCH 27.6 pg (27.0-33.0) 12/10/19 06:25 MCHC 32.5 g/dL (32.0-36.0) 12/10/19 06:25 RDW 15.1 % (11.8-14.1) H 12/10/19 06:25 Plt Count 234 x1000/uL (130-400) 12/10/19 06:25 MPV 11.0 fL (8.0-11.0) 12/10/19 06:25 Immature Gran % 0.0 % 12/10/19 06:25 Neutrophils % 8.0 12/10/19 06:25 Band Neutrophils % 5.0 % 12/08/19 13:35 Lymphocytes % 80.0 12/10/19 06:25 Monocytes % 8.0 12/10/19 06:25 Eosinophils % 2.0 12/10/19 06:25 Basophils % 2.0 12/10/19 06:25 Absolute Neutrophils 0.05 k/cumm (1.2-6.7) L* 12/10/19 06:25 Absolute Lymphocytes 0.51 k/cumm (1.2-3.4) L 12/10/19 06:25 Absolute Monocytes 0.05 k/cumm (0.11-0.7) L 12/10/19 06:25 Absolute Eosinophils 0.01 k/cumm (0.0-0.7) 12/10/19 06:25 Absolute Basophils 0.01 k/cumm (0.0-0.2) 12/10/19 06:25 Differential Comment Manual differential 12/10/19 06:25 RBC Morphology Normal 12/10/19 06:25 Anisocytosis 1+ 12/08/19 13:35 PT 34.6 sec (9.3-11.0) H D 12/10/19 06:25 INR 3.6 (0.9-1.1) H D 12/10/19 06:25 APTT 63.7 sec (21.0-31.4) H 12/08/19 13:35 Sodium 136 mmol/L (136-145) 12/10/19 06:25 Potassium 2.8 mmol/L (3.5-5.1) L* 12/10/19 06:25 Chloride 97 mmol/L (98-107) L 12/10/19 06:25 Carbon Dioxide 31.1 mmol/L (21.0-32.0) 12/10/19 06:25 Anion Gap 7.9 mmol/L (3-11) 12/10/19 06:25 BUN 9 mg/dL (7-18) 12/10/19 06:25 Creatinine 1.01 mg/dL (0.70-1.30) 12/10/19 06:25 Estimated GFR/1.73 m2 >= 60.00 (mL/min/1.73m2) 12/10/19 06:25 Glucose 166 mg/dL (74-106) H 12/10/19 06:25 Hemoglobin A1c 7.2 % (3.8-5.6) H 12/09/19 05:30 Calcium 7.9 mg/dL (8.5-10.1) L 12/10/19 06:25 Magnesium 1.7 mg/dL (1.8-2.4) L 12/10/19 06:25 Total Bilirubin 0.5 mg/dL (0.2-1.0) 12/08/19 13:35 AST 25 U/L (15-37) 12/08/19 13:35 ALT 32 U/L (16-63) 12/08/19 13:35 Alkaline Phosphatase 41 U/L (46-116) L 12/08/19 13:35 Troponin I < 0.05 ng/mL (<0.06) 12/09/19 05:30 Total Protein 6.8 g/dL (6.4-8.2) 12/08/19 13:35 Albumin 3.2 g/dL (3.4-5.0) L 12/08/19 13:35 Urine Color Yellow (Yellow) 12/10/19 03:10 Urine Clarity Sl cloudy (Clear) 12/10/19 03:10 Urine pH 5.5 (5-8) 12/10/19 03:10 Ur Specific [place] 1.020 (1.005-1.025) 12/10/19 03:10 Urine Protein 100 mg/dL (Negative) H 12/10/19 03:10 Urine Ketones Negative mg/dL (Negative) 12/10/19 03:10 Urine Blood Large (Negative) H 12/10/19 03:10 Urine Nitrite Negative (Negative) 12/10/19 03:10 Urine Bilirubin Negative (Negative) 12/10/19 03:10 Urine Urobilinogen 0.2 EU/dL (Up TO 0.2) 12/10/19 03:10 Ur Leukocyte Esterase Negative (Negative) 12/10/19 03:10 Urine RBC 20-50 HPF (0-2) H 12/10/19 03:10 Urine WBC 0-2 HPF (0-5) 12/10/19 03:10 Ur Epithelial Cells Few HPF (Negative) 12/10/19 03:10 Urine Crystals Negative HPF (Negative) 12/10/19 03:10 Urine Bacteria Few HPF (Negative) 12/10/19 03:10 Urine Casts Negative LPF (Negative) 12/10/19 03:10 Urine Mucus Trace (Negative) 12/10/19 03:10 Urine Other Negative (Negative) 12/10/19 03:10 Ur Culture Indicated? No 12/10/19 03:10 Urine Glucose Negative mg/dL (Negative) 12/10/19 03:10 COVID-19 PCR Negative (Negative) 12/08/19 17:28 Nasopharyn COVID-19 PCR Not Applicable 12/08/19 17:28 Ref Test Perform Site [facility] lab 12/08/19 17:28 Patient ABO/Rh O Positive 12/08/19 13:35 Antibody Screen Negative 12/08/19 13:35
[2019-12-10] MEDS: VANCOMYCIN 1,000 MG in Normal Saline 250 ML 166.667 MG IVPB (16:17)
[2019-12-10] MEDS: CEFEPIME 2 GM in Normal Saline 100 ML IVPB (18:03)
[2019-12-10 19:49] LABS: Anion Gap 5.1 mmol/L (3-11); BUN 9 mg/dL (7-18); CO2 31.9 mmol/L (21.0-32.0); Calcium 7.8 mg/dL (8.5-10.1); Chloride 98 mmol/L (98-107); Glucose 195 mg/dL (74-106); Sodium 135 mmol/L (136-145)
[2019-12-10 20:21] LABS: Potassium 2.8 mmol/L (3.5-5.1)
[2019-12-10] MEDS: Lidocaine 5% Patch 1 PATCH TP (20:54)
[2019-12-10] MEDS: valACYclovir 1,000 MG TAB 1000 MG PO (20:55)
[2019-12-10] MEDS: POTASSIUM CHLORIDE/0.9% NACL 1,000 ML 100 MEQ IV (20:55)
[2019-12-11] VITALS (7 sets, daily range): BP systolic 118–156; BP diastolic 69–84; PULSE 89–103; RESP 18–21; TEMP 37.2–39.4; O2SAT 94–100
[2019-12-11] MEDS: CEFEPIME 2 GM in Normal Saline 100 ML IVPB ×3 (02:29→17:25)
[2019-12-11] MEDS: traMADol 50 MG TAB PO ×4 (02:33→22:48)
[2019-12-11] MEDS: Acetaminophen 325 MG TAB 650 MG PO ×2 (04:31→13:14)
[2019-12-11 07:57] LABS: Absolute Basophil Count 0.03 k/cumm (0.0-0.2); Absolute Monocyte Count 0.14 k/cumm (0.11-0.7); HCT 31.9 % (40.0-50.0); HGB 10.4 g/dL (13.5-17.5); Mean Corp. HGB Concentration 32.6 g/dL (32.0-36.0); Mean Corpuscular Hemoglobin 27.8 pg (27.0-33.0); Mean Corpuscular Volume 85.3 fL (80-95); Mean Platelet Volume 10.7 fL (8.0-11.0); RBC 3.74 m/cumm (4.50-6.00); RBC Distribution Width 15.2 % (11.8-14.1)
[2019-12-11 07:59] LABS: Anion Gap 6.3 mmol/L (3-11); BUN 7 mg/dL (7-18); CO2 29.7 mmol/L (21.0-32.0); CREATININE 0.92 mg/dL (0.70-1.30); Calcium 7.7 mg/dL (8.5-10.1); Chloride 100 mmol/L (98-107); Glucose 154 mg/dL (74-106); Magnesium 1.8 mg/dL (1.8-2.4); Sodium 136 mmol/L (136-145)
[2019-12-11 08:00] LABS: White Blood Cell Count 0.88 k/cumm (4.4-10.8)
[2019-12-11 08:02] LABS: Potassium 2.8 mmol/L (3.5-5.1)
[2019-12-11 08:03] LABS: INR 2.1 (0.9-1.1)
[2019-12-11] MEDS: Acetaminophen 500 MG TAB 1000 MG PO ×2 (08:11→19:36)
[2019-12-11] MEDS: Potassium Chloride Liquid 20 MEQ PKT 40 MEQ PO ×2 (08:11→20:29)
[2019-12-11] MEDS: valACYclovir 500 MG TAB 1000 MG PO ×2 (08:11→20:29)
[2019-12-11] MEDS: Normal Saline Flush 10 ML SYR IVP ×3 (08:12→17:25)
[2019-12-11] MEDS: Metoprolol CR 50 MG TABCR PO (08:12)
[2019-12-11 08:18] LABS: Absolute Eosinophil Count 0.09 k/cumm (0.0-0.7); Absolute Lymphocyte Count 0.59 k/cumm (1.2-3.4); Platelet Count 218 x1000/uL (130-400)
[2019-12-11] MEDS: Patch Removal 1 EACH TP (08:18)
[2019-12-11 08:19] LABS: Diff Comment Manual Differential; Poikilocytes 1+
[2019-12-11 08:20] LABS: Absolute Neutrophil Count 0.04 k/cumm (1.2-6.7)
[2019-12-11] MEDS: Magic Mouthwash 119 ML BTL 10 ML MM ×2 (10:43→16:40)
[2019-12-11 10:58] LABS: Campylobacter PCR Negative (Negative); Salmonella PCR Negative (Negative); Shiga Toxin PCR Negative (Negative); Shigella/Enteroinvasive Ecoli Negative (Negative)
[2019-12-11] MEDS: POTASSIUM CHLORIDE/D5-0.45NACL 1,000 ML 100 MEQ IV ×2 (11:18→21:20)
[2019-12-11] MEDS: Insulin Aspart 300 UNITS/3 ML PEN SC ×3 (11:31→22:07)
--- NOTE | 2019-12-11 11:38 | PGE_ITS ---
Date of Service Date of service: 12/11/19 Time of Service: 11:38 Assessment and Plan Assessment and plan (1) Neutropenic fever: Status: Acute Assessment and plan: Neupogen started after discussion with hematology yesterday 12/10/2019 (there is a risk of increased pulmonary toxicity due to interaction with bleomycin, but in his case the benefits outweigh the risks). And to continue Neupogen and reverse precautions until ANC >500. Continue vancomycin and cefepime, which will cover the bacteria and other possible sources... Await stool studies. Blood cx negative. C. diff negative. (2) Bacteriuria: Status: Acute Assessment and plan: As above E. Coli, pansensitive, and though there is no pyuria, neutropenic patients may not be able to mount it, per hem/onc, so in fact this represents a true UTI. Continue vancomycin/cefepime, as above. (3) Lower GI bleeding: Status: Acute Assessment and plan: In setting of supratherapeutic INR, no longer active. H/H stable. Continue current diet. Monitor H/H (4) Diarrhea: Status: Acute Assessment and plan: Likely side effect of chemo. C.Diff negative. Stool bacterial studies still pending. If negative, would start imodium. (5) Supratherapeutic INR: Status: Acute Assessment and plan: As above - better post vitamin K. Continue to hold coumadin. (6) Hodgkin lymphoma: Status: Chronic Assessment and plan: On chemo with ABVD. [facility] [place] Hem/onc consulted by ED. Bleomycin interacts with GCSF (pulmonary toxicity), but benefits of neupogen outweigh rsks, per hem/onc, given febrile neutropenia. Start daily neupogen until ANC>500. (7) Chest pain: Status: Acute Assessment and plan: ACS ruled out. Echo does not show change from prior to chemo. Follow up as outpatient (8) Back pain: Status: Acute Assessment and plan: Improved with lidocaine patches/heat - likely MSK. (9) Hypokalemia: Status: Acute Assessment and plan: Likely due to diarrhea. Continue to replete (10) Hypomagnesemia: Status: Acute Assessment and plan: Continue to replete (11) Newly diagnosed diabetes: Status: Acute Assessment and plan: Diabetes education consulted. Treat with SSI for now. PO meds on discharge. (12) DVT prophylaxis: Status: Acute Assessment and plan: INR now therapeutic. We are holding the warfarin so we will start SCDs. (13) Discharge planning issues: Status: Acute Assessment and plan: Full code Potential discharge home when ANC climbing out of danger zone. (14) Oral ulcer: Status: Acute Assessment and plan: I think this looks most like an aphthous ulcer related to neutropenia. We will continue antivirals until HSV PCR returns negative. Does not look like thrush to me either. Getting some Magic mouthwash for comfort. Subjective Subjective Patient reports: denies vomiting and shortness of breath Interval history since last seen: 24-hour: Neupogen started yesterday HSV PCR swab sent yesterday, started on valacyclovir empirically for oral sores Patient continues to feel tired. He does not feel feverish. He is nauseous, taking some clears. He has been nauseous since chemo started. He continues to have loose stools. Some are heme positive and some are per nursing. No other gross bleeding. Again, he has had these since chemotherapy started. He is anxious about or not he will get chemo next week. His back pain is about the same. Mouth sores are still bothering him the base of the tongue, hurts to eat. His leg edema is actually better than his baseline. Uses compression stockings at home. Exam Narrative Exam Narrative: General: Pleasant, obese male, laying flat in bed speaking comfortably in full sentences, A&Ox3. HEENT: EOMI, MMM. White ulceration at right base of tongue. Not vesicular appearing. Not a lot of redness around it. Heart: RRR, + 1 out of 6 SOPHIA Lungs: CTAB, effort Abdomen: soft, nontender, nondistended Extremities: 1+ edema BLE's, no c/c Objective Objective Clinical Data: Abnormal lab results 12/10/19 12/10/19 12/10/19 Range/Units 06:25 06:25 19:25 WBC 0.64 L* (4.4-10.8) k/cumm RBC 3.91 L (4.50-6.00) m/cumm Hgb 10.8 L (13.5-17.5) g/dL Hct 33.2 L (40.0-50.0) % RDW 15.1 H (11.8-14.1) % Absolute Neutrophils 0.05 L* (1.2-6.7) k/cumm Absolute Lymphocytes 0.51 L (1.2-3.4) k/cumm Absolute Monocytes 0.05 L (0.11-0.7) k/cumm PT (9.3-11.0) sec INR (0.9-1.1) Sodium 135 L (136-145) mmol/L Potassium 2.8 L* 2.8 L* (3.5-5.1) mmol/L Chloride 97 L (98-107) mmol/L Glucose 166 H 195 H (74-106) mg/dL Calcium 7.9 L 7.8 L (8.5-10.1) mg/dL Magnesium 1.7 L (1.8-2.4) mg/dL 12/11/19 12/11/19 12/11/19 Range/Units 06:35 06:35 06:35 WBC 0.88 L* D (4.4-10.8) k/cumm RBC 3.74 L (4.50-6.00) m/cumm Hgb 10.4 L (13.5-17.5) g/dL Hct 31.9 L (40.0-50.0) % RDW 15.2 H (11.8-14.1) % Absolute Neutrophils 0.04 L* (1.2-6.7) k/cumm Absolute Lymphocytes 0.59 L (1.2-3.4) k/cumm Absolute Monocytes (0.11-0.7) k/cumm PT 21.0 H D (9.3-11.0) sec INR 2.1 H D (0.9-1.1) Sodium (136-145) mmol/L Potassium 2.8 L* (3.5-5.1) mmol/L Chloride (98-107) mmol/L Glucose 154 H (74-106) mg/dL Calcium 7.7 L (8.5-10.1) mg/dL Magnesium (1.8-2.4) mg/dL Vital Signs Temperature 37.2 C 12/11/19 11:11 Temperature Source Tympanic 12/11/19 11:11 Pulse 89 12/11/19 11:11 Pulse Rhythm Regular 12/11/19 03:55 Pulse 95 H 12/08/19 18:02 Respiratory Rate 18 12/11/19 11:11 Respiratory Effort Non-Labored 12/11/19 03:55 Respiratory Depth Normal 12/11/19 03:55 Respiratory Pattern Normal 12/11/19 03:55 Blood Pressure 118/69 12/11/19 11:11 Blood Pressure Mean 67 12/08/19 18:02 Blood Pressure Position Sitting 12/08/19 13:18 Pulse Oximetry 100 12/11/19 11:11 Oxygen Delivery Method Room Air 12/11/19 11:11 Oxygen Flow Rate 0 12/11/19 11:11 Pain Level 4 12/11/19 11:11 Comment 12/11/19 03:45 Intake & Output 12/10/19 12/10/19 12/11/19 11:59 23:59 11:59 Intake Total 480 / 1590 1110 / 1590 620 / 620 Output Total 600 / 1850 1250 / 1850 400 / 400 Balance -120 / -260 -140 / -260 220 / 220 Weight 196.5 kg 195.3 kg Intake: IV 630 / 630 620 / 620 Oral 480 / 960 480 / 960 Output: Urine 600 / 1850 1250 / 1850 400 / 400 Other: Urine Color Yellow Yellow Light Mayuri Straw Urine Appearance Clear Cloudy Cloudy Urine Odor Normal None Comment orangish Stool Occult Blood Negative Positive Negative Stool Size Moderate Small Moderate Stool Characteristics Soft Liquid Soft Formed Formed Voiding Methods Toilet Toilet Toilet Laboratory Results WBC 0.88 k/cumm (4.4-10.8) L* D 12/11/19 06:35 RBC 3.74 m/cumm (4.50-6.00) L 12/11/19 06:35 Hgb 10.4 g/dL (13.5-17.5) L 12/11/19 06:35 Hct 31.9 % (40.0-50.0) L 12/11/19 06:35 MCV 85.3 fL (80-95) 12/11/19 06:35 MCH 27.8 pg (27.0-33.0) 12/11/19 06:35 MCHC 32.6 g/dL (32.0-36.0) 12/11/19 06:35 RDW 15.2 % (11.8-14.1) H 12/11/19 06:35 Plt Count 218 x1000/uL (130-400) 12/11/19 06:35 MPV 10.7 fL (8.0-11.0) 12/11/19 06:35 Immature Gran % 0.0 % 12/11/19 06:35 Neutrophils % 4.0 12/11/19 06:35 Band Neutrophils % 5.0 % 12/08/19 13:35 Lymphocytes % 67.0 12/11/19 06:35 Monocytes % 16.0 12/11/19 06:35 Eosinophils % 10.0 12/11/19 06:35 Basophils % 3.0 12/11/19 06:35 Absolute Neutrophils 0.04 k/cumm (1.2-6.7) L* 12/11/19 06:35 Absolute Lymphocytes 0.59 k/cumm (1.2-3.4) L 12/11/19 06:35 Absolute Monocytes 0.14 k/cumm (0.11-0.7) 12/11/19 06:35 Absolute Eosinophils 0.09 k/cumm (0.0-0.7) 12/11/19 06:35 Absolute Basophils 0.03 k/cumm (0.0-0.2) 12/11/19 06:35 Differential Comment Manual differential 12/11/19 06:35 RBC Morphology See below 12/11/19 06:35 Poikilocytosis 1+ 12/11/19 06:35 Anisocytosis 1+ 12/08/19 13:35 PT 21.0 sec (9.3-11.0) H D 12/11/19 06:35 INR 2.1 (0.9-1.1) H D 12/11/19 06:35 APTT 63.7 sec (21.0-31.4) H 12/08/19 13:35 Sodium 136 mmol/L (136-145) 12/11/19 06:35 Potassium 2.8 mmol/L (3.5-5.1) L* 12/11/19 06:35 Chloride 100 mmol/L (98-107) 12/11/19 06:35 Carbon Dioxide 29.7 mmol/L (21.0-32.0) 12/11/19 06:35 Anion Gap 6.3 mmol/L (3-11) 12/11/19 06:35 BUN 7 mg/dL (7-18) 12/11/19 06:35 Creatinine 0.92 mg/dL (0.70-1.30) 12/11/19 06:35 Estimated GFR/1.73 m2 >= 60.00 (mL/min/1.73m2) 12/11/19 06:35 Glucose 154 mg/dL (74-106) H 12/11/19 06:35 Hemoglobin A1c 7.2 % (3.8-5.6) H 12/09/19 05:30 Calcium 7.7 mg/dL (8.5-10.1) L 12/11/19 06:35 Magnesium 1.8 mg/dL (1.8-2.4) 12/11/19 06:35 Total Bilirubin 0.5 mg/dL (0.2-1.0) 12/08/19 13:35 AST 25 U/L (15-37) 12/08/19 13:35 ALT 32 U/L (16-63) 12/08/19 13:35 Alkaline Phosphatase 41 U/L (46-116) L 12/08/19 13:35 Troponin I < 0.05 ng/mL (<0.06) 12/09/19 05:30 Total Protein 6.8 g/dL (6.4-8.2) 12/08/19 13:35 Albumin 3.2 g/dL (3.4-5.0) L 12/08/19 13:35 Urine Color Yellow (Yellow) 12/10/19 03:10 Urine Clarity Sl cloudy (Clear) 12/10/19 03:10 Urine pH 5.5 (5-8) 12/10/19 03:10 Ur Specific [place] 1.020 (1.005-1.025) 12/10/19 03:10 Urine Protein 100 mg/dL (Negative) H 12/10/19 03:10 Urine Ketones Negative mg/dL (Negative) 12/10/19 03:10 Urine Blood Large (Negative) H 12/10/19 03:10 Urine Nitrite Negative (Negative) 12/10/19 03:10 Urine Bilirubin Negative (Negative) 12/10/19 03:10 Urine Urobilinogen 0.2 EU/dL (Up TO 0.2) 12/10/19 03:10 Ur Leukocyte Esterase Negative (Negative) 12/10/19 03:10 Urine RBC 20-50 HPF (0-2) H 12/10/19 03:10 Urine WBC 0-2 HPF (0-5) 12/10/19 03:10 Ur Epithelial Cells Few HPF (Negative) 12/10/19 03:10 Urine Crystals Negative HPF (Negative) 12/10/19 03:10 Urine Bacteria Few HPF (Negative) 12/10/19 03:10 Urine Casts Negative LPF (Negative) 12/10/19 03:10 Urine Mucus Trace (Negative) 12/10/19 03:10 Urine Other Negative (Negative) 12/10/19 03:10 Ur Culture Indicated? No 12/10/19 03:10 Urine Glucose Negative mg/dL (Negative) 12/10/19 03:10 COVID-19 PCR Negative (Negative) 12/08/19 17:28 Nasopharyn COVID-19 PCR Not Applicable 12/08/19 17:28 Ref Test Perform Site [facility] lab 12/08/19 17:28 Patient ABO/Rh O Positive 12/08/19 13:35 Antibody Screen Negative 12/08/19 13:35
[2019-12-11] MEDS: VANCOMYCIN 1,500 MG in Normal Saline 250 ML 166.667 MG IV (14:33)
--- NOTE | 2019-12-11 15:45 | CMPROGNOTE_ITS ---
- If Service Date Differs Date of service: 12/11/19 Time of Service: 15:45 Care Management Progress Note S/O: Jarrod was using the bathroom when CM attempted to meet with him. He was reviewed at interdisciplinary rounds. Per report, Jarrod is receiving IV abx for bacteriuria and neutropenic fever. Per report, Jarrod is still having diarrhea, which may be a side effect of his chemo. He continues to be monitored, and may be able to discharge home once ANC is out of 'danger zone', per report. CM will continue to follow. A: Jarrod is a 49 year old male admitted to [facility] on 12/08/19 for neutropenia, GI bleeding, supratherapeutic INR. P: Jarrod will return home once medically cleared. Anticipate he will discharge home with no services and follow up with his oncologist and primary care provider. His s/o will drive him home via private vehicle when ready. CM will continue to provide support with discharge planning considerations.
[2019-12-11] MEDS: VANCOMYCIN 1,500 MG in Normal Saline 250 ML 167 MG IV (22:07)
[2019-12-12] MEDS: CEFEPIME 2 GM in Normal Saline 100 ML IVPB ×3 (02:39→17:13)
[2019-12-12] MEDS: diphenhydrAMINE 50 MG/ML VIAL 25 MG IVP (04:20)
[2019-12-12] MEDS: Nystatin 500000 UNITS/5 ML SUSP 5ML CUP PO ×4 (04:20→21:04)
[2019-12-12] MEDS: LORazepam 0.5 MG TAB PO (04:21)
[2019-12-12] MEDS: methylPREDNISolone SUCC 125 MG VIAL IVP (04:21)
[2019-12-12 05:12] LABS: Abs Immature Grans 0.05 k/cumm (0.0-0.09); Absolute Basophil Count 0.06 k/cumm (0.0-0.2); Absolute Eosinophil Count 0.04 k/cumm (0.0-0.7); Absolute Lymphocyte Count 0.78 k/cumm (1.2-3.4); Absolute Monocyte Count 0.46 k/cumm (0.11-0.7); Basophils % 4.1; Eosinophils % 2.7; HCT 31.7 % (40.0-50.0); HGB 10.4 g/dL (13.5-17.5); Immature Grans % 3.4 %; Lymphocytes % 53.4; Mean Corp. HGB Concentration 32.8 g/dL (32.0-36.0); Mean Corpuscular Hemoglobin 27.9 pg (27.0-33.0); Mean Platelet Volume 10.2 fL (8.0-11.0); Monocytes % 31.5; Neutrophils % 4.9; Platelet Count 192 x1000/uL (130-400); RBC 3.73 m/cumm (4.50-6.00); RBC Distribution Width 15.6 % (11.8-14.1)
[2019-12-12 05:20] LABS: Anion Gap 5.8 mmol/L (3-11); BUN 8 mg/dL (7-18); CO2 30.2 mmol/L (21.0-32.0); Calcium 8.1 mg/dL (8.5-10.1); Chloride 95 mmol/L (98-107); Glucose 179 mg/dL (74-106); Potassium 3.3 mmol/L (3.5-5.1); Sodium 131 mmol/L (136-145)
[2019-12-12 05:34] LABS: INR 1.6 (0.9-1.1); Prothrombin Time 15.5 sec (9.3-11.0)
[2019-12-12 05:57] LABS: White Blood Cell Count 1.46 k/cumm (4.4-10.8)
[2019-12-12 05:58] LABS: Absolute Neutrophil Count 0.07 k/cumm (1.2-6.7)
[2019-12-12 05:59] LABS: Diff Comment Agrees w/ Instrument; Hypochromasia 1+; Microcytosis 1+; Poikilocytes 1+
[2019-12-12 06:01] LABS: Vancomycin, Trough 15.4 ug/mL (10.0-20.0)
[2019-12-12] MEDS: VANCOMYCIN 1,500 MG in Normal Saline 250 ML 167 MG IV ×3 (06:23→21:04)
[2019-12-12 07:43] VITALS: BP 124/76; PULSE 91; RESP 18; TEMP 37.7; O2SAT 95
[2019-12-12 07:47] VITALS: TEMP 37.7
[2019-12-12] MEDS: Acetaminophen 500 MG TAB 1000 MG PO ×2 (07:47→21:01)
[2019-12-12] MEDS: valACYclovir 500 MG TAB 1000 MG PO ×2 (07:48→21:02)
[2019-12-12] MEDS: Potassium Chloride Liquid 20 MEQ PKT 40 MEQ PO ×2 (07:48→21:02)
[2019-12-12] MEDS: Normal Saline Flush 10 ML SYR IVP ×3 (07:55→22:04)
[2019-12-12] MEDS: Insulin Aspart 300 UNITS/3 ML PEN SC ×4 (07:55→21:04)
[2019-12-12] MEDS: Metoprolol CR 50 MG TABCR PO (07:58)
[2019-12-12] MEDS: Patch Removal 1 EACH TP (08:44)
[2019-12-12] MEDS: FAMOTIDINE 20 MG/50 ML BAG 200 MG IVPB (09:06)
[2019-12-12] MEDS: diphenhydrAMINE 50 MG/ML VIAL IVP (09:10)
--- NOTE | 2019-12-12 10:11 | CMPROGNOTE_ITS ---
- If Service Date Differs Date of service: 12/12/19 Time of Service: 10:11 Care Management Progress Note S/O: Jarrod was reviewed at interdisciplinary rounds today. Per report, he is complaining of a sore throat and has had a fever overnight. His ANC continues to be monitored, and once it is stabilized he may be ready to discharge home. CM will continue to follow. A: Jarrod is a 49 year old male admitted to [facility] on 12/08/19 for neutropenia, GI bleeding, supratherapeutic INR. P: Jarrod will return home once medically cleared. Anticipate he will discharge home with no services and follow up with his oncologist and primary care provider. His s/o will drive him home via private vehicle when ready. CM will continue to provide support with discharge planning considerations.
--- NOTE | 2019-12-12 10:19 | W.PM.PROGNOT ---
Date of Service Date of service: 12/12/19 Time of Service: 10:19 Assessment and Plan Assessment and plan (1) Neutropenic fever: Status: Acute Assessment and plan: Neupogen started after discussion with hematology yesterday 12/10/2019 (there is a risk of increased pulmonary toxicity due to interaction with bleomycin, but in his case the benefits outweigh the risks). And to continue Neupogen and reverse precautions until ANC >500. Unfortunately, we have no more Neupogen at the pharmacy until tomorrow. Continue vancomycin and cefepime, which will cover the bacteria and other possible sources. Stool studies negative. Blood cx negative. C. diff negative. (2) Bacteriuria: Status: Acute Assessment and plan: As above E. Coli, pansensitive, and though there is no pyuria, neutropenic patients may not be able to mount it, per hem/onc, so in fact this represents a true UTI. Continue vancomycin/cefepime, as above. (3) Lower GI bleeding: Status: Acute Assessment and plan: In setting of supratherapeutic INR, no longer active. H/H stable. Continue current diet. Monitor H/H now that we are resuming anticoagulation. (4) Diarrhea: Status: Acute Assessment and plan: Likely side effect of chemo. C.Diff and bacterial antigen studies negative. Will start loperamide for symptoms. (5) Supratherapeutic INR: Status: Acute Assessment and plan: As above - better post vitamin K. Restart today given risk of DVT. (6) Hodgkin lymphoma: Status: Chronic Assessment and plan: On chemo with ABVD. [facility] [place] Hem/onc consulted by ED. Bleomycin interacts with GCSF (pulmonary toxicity), but benefits of neupogen outweigh rsks, per hem/onc, given febrile neutropenia. Start daily neupogen until ANC>500. Jarrod is nervous about the next plan chemoinfusion this week. We discussed that recommendations regarding postponing or decreasing dosage will be made by oncology. (7) Chest pain: Status: Acute Assessment and plan: ACS ruled out. Echo does not show change from prior to chemo. Follow up as outpatient (8) Back pain: Status: Acute Assessment and plan: Improved with lidocaine patches/heat - likely MSK. G-CSF can also increase bone pain. No change. (9) Hypokalemia: Status: Acute Assessment and plan: Likely due to diarrhea. Continue to replete (10) Hypomagnesemia: Status: Acute Assessment and plan: Improved. (11) Newly diagnosed diabetes: Status: Acute Assessment and plan: Diabetes education consulted. Treat with SSI for now. PO meds on discharge. (12) Throat fullness: Status: Acute Assessment and plan: I do not appreciate angioedema on my exam. I do not see associated symptoms such as wheezes or hives. He thinks fullness is associated with dryness in the throat and irritation. He also relates to his previous neck mass from the lymphoma, and the sensation of fullness and irritation triggers anxiety. Patient did already get methylprednisolone and Benadryl overnight, though he could have had signs that have improved. Angioedema is not common reaction any of his medications. G-CSF is a possible cause, will monitor closely after next dose, which will be tomorrow. (13) Oral ulcer: Status: Acute Assessment and plan: I still think this looks most like an aphthous ulcer related to neutropenia. We will continue antivirals until HSV PCR returns negative. Does not look like thrush to me either.. Getting some Magic mouthwash for comfort. (14) DVT prophylaxis: Status: Acute Assessment and plan: INR now below therapeutic. We are restarting warfarin as above, continue SCDs. Follow INR. (15) Discharge planning issues: Status: Acute Assessment and plan: Full code Potential discharge home when ANC climbing out of danger zone. Subjective Subjective Patient reports: tolerating a regular diet and diarrhea; denies vomiting and fever Interval history since last seen: 24-hour events: Overnight complained of feeling of dryness and tightness in the throat, hard to swallow. Was concern for angioedema developing and was given methylprednisolone and diphenhydramine and famotidine at 4 AM. Patient feels little better currently. He states he thinks feeling in his throat was related to being very dry from mouth breathing. He has not noticed any overt swelling in his neck, mouth or face. He states the Magic mouthwash solution is helpful. Denies any shortness of breath or wheezing. He denies fevers today. His diarrhea yesterday was the same, loose and about 6 episodes. He has not noted yahaira blood. Denies other bleeding. Mouth sores feel about the same. He denies other new symptoms such as cough or dysuria. Exam Narrative Exam Narrative: General: Pleasant, obese male, laying flat in bed speaking comfortably in full sentences, A&Ox3. HEENT: EOMI, MMM. I do not appreciate any soft tissue swelling around the face or neck. Initially there was a subtle suggestion of left being slightly less open than the right, but on exam eyelids and pleasant facial strength all symmetric and normal. White ulceration at right base of tongue. Not vesicular appearing. Not a lot of redness around it. Heart: RRR, I do not appreciate murmurs Lungs: CTAB, effort Abdomen: soft, nontender, nondistended Skin: No hives or other rashes. No new bruises. Extremities: 1+ edema BLE's, no c/c Objective Objective Clinical Data: Abnormal lab results 12/12/19 12/12/19 12/12/19 Range/Units 04:56 04:56 04:56 WBC 1.46 L* D (4.4-10.8) k/cumm RBC 3.73 L (4.50-6.00) m/cumm Hgb 10.4 L (13.5-17.5) g/dL Hct 31.7 L (40.0-50.0) % RDW 15.6 H (11.8-14.1) % Absolute Neutrophils 0.07 L* (1.2-6.7) k/cumm Absolute Lymphocytes 0.78 L (1.2-3.4) k/cumm PT 15.5 H D (9.3-11.0) sec INR 1.6 H (0.9-1.1) Sodium 131 L (136-145) mmol/L Potassium 3.3 L (3.5-5.1) mmol/L Chloride 95 L (98-107) mmol/L Glucose 179 H (74-106) mg/dL Calcium 8.1 L (8.5-10.1) mg/dL Vital Signs Temperature 37.7 C H 12/12/19 07:47 Temperature Source Tympanic 12/12/19 07:43 Pulse 91 H 12/12/19 07:43 Pulse Rhythm Regular 12/11/19 23:00 Pulse 95 H 12/08/19 18:02 Respiratory Rate 18 12/12/19 07:43 Respiratory Effort 12/12/19 02:45 Respiratory Depth Normal 12/12/19 02:45 Respiratory Pattern Normal 12/12/19 02:45 Blood Pressure 124/76 12/12/19 07:43 Blood Pressure Mean 67 12/08/19 18:02 Blood Pressure Position Sitting 12/08/19 13:18 Pulse Oximetry 95 12/12/19 07:43 Oxygen Delivery Method Room Air 12/12/19 07:43 Oxygen Flow Rate 0 12/12/19 07:43 Pain Level 2 12/12/19 07:47 Comment 12/11/19 03:45 Intake & Output 12/11/19 12/11/19 12/12/19 11:59 23:59 11:59 Intake Total 1620 / 3668.333 2048.333 / 3668.333 1498.333 / 1498.333 Output Total 400 / 1450 1050 / 1450 375 / 375 Balance 1220 / 2218.333 998.333 / 2218.333 1123.333 / 1123.333 Weight 195.3 kg 198.9 kg Intake: IV 1620 / 3428.333 1808.333 / 3428.333 648.333 / 648.333 Oral 240 / 240 850 / 850 Output: Urine 400 / 1450 1050 / 1450 375 / 375 Other: Urine Color Light Mayuri Yellow Yellow Urine Appearance Cloudy Clear Clear Urine Odor None Normal Comment orangish Stool Occult Blood Negative Negative Stool Size Moderate Moderate Stool Characteristics Soft Soft Formed Brown Voiding Methods Toilet Toilet Toilet Laboratory Results WBC 1.46 k/cumm (4.4-10.8) L* D 12/12/19 04:56 RBC 3.73 m/cumm (4.50-6.00) L 12/12/19 04:56 Hgb 10.4 g/dL (13.5-17.5) L 12/12/19 04:56 Hct 31.7 % (40.0-50.0) L 12/12/19 04:56 MCV 85.0 fL (80-95) 12/12/19 04:56 MCH 27.9 pg (27.0-33.0) 12/12/19 04:56 MCHC 32.8 g/dL (32.0-36.0) 12/12/19 04:56 RDW 15.6 % (11.8-14.1) H 12/12/19 04:56 Plt Count 192 x1000/uL (130-400) 12/12/19 04:56 MPV 10.2 fL (8.0-11.0) 12/12/19 04:56 Immature Gran % 3.4 % 12/12/19 04:56 Neutrophils % 4.9 12/12/19 04:56 Band Neutrophils % 5.0 % 12/08/19 13:35 Lymphocytes % 53.4 12/12/19 04:56 Monocytes % 31.5 12/12/19 04:56 Eosinophils % 2.7 12/12/19 04:56 Basophils % 4.1 12/12/19 04:56 Absolute Neutrophils 0.07 k/cumm (1.2-6.7) L* 12/12/19 04:56 Absolute Lymphocytes 0.78 k/cumm (1.2-3.4) L 12/12/19 04:56 Absolute Monocytes 0.46 k/cumm (0.11-0.7) 12/12/19 04:56 Absolute Eosinophils 0.04 k/cumm (0.0-0.7) 12/12/19 04:56 Absolute Basophils 0.06 k/cumm (0.0-0.2) 12/12/19 04:56 Differential Comment Agrees w/ instrument 12/12/19 04:56 RBC Morphology See below 12/12/19 04:56 Hypochromasia 1+ 12/12/19 04:56 Poikilocytosis 1+ 12/12/19 04:56 Anisocytosis 1+ 12/08/19 13:35 Microcytosis 1+ 12/12/19 04:56 PT 15.5 sec (9.3-11.0) H D 12/12/19 04:56 INR 1.6 (0.9-1.1) H 12/12/19 04:56 APTT 63.7 sec (21.0-31.4) H 12/08/19 13:35 Sodium 131 mmol/L (136-145) L 12/12/19 04:56 Potassium 3.3 mmol/L (3.5-5.1) L 12/12/19 04:56 Chloride 95 mmol/L (98-107) L 12/12/19 04:56 Carbon Dioxide 30.2 mmol/L (21.0-32.0) 12/12/19 04:56 Anion Gap 5.8 mmol/L (3-11) 12/12/19 04:56 BUN 8 mg/dL (7-18) 12/12/19 04:56 Creatinine 1.00 mg/dL (0.70-1.30) 12/12/19 04:56 Estimated GFR/1.73 m2 >= 60.00 (mL/min/1.73m2) 12/12/19 04:56 Glucose 179 mg/dL (74-106) H 12/12/19 04:56 Hemoglobin A1c 7.2 % (3.8-5.6) H 12/09/19 05:30 Calcium 8.1 mg/dL (8.5-10.1) L 12/12/19 04:56 Magnesium 1.8 mg/dL (1.8-2.4) 12/11/19 06:35 Total Bilirubin 0.5 mg/dL (0.2-1.0) 12/08/19 13:35 AST 25 U/L (15-37) 12/08/19 13:35 ALT 32 U/L (16-63) 12/08/19 13:35 Alkaline Phosphatase 41 U/L (46-116) L 12/08/19 13:35 Troponin I < 0.05 ng/mL (<0.06) 12/09/19 05:30 Total Protein 6.8 g/dL (6.4-8.2) 12/08/19 13:35 Albumin 3.2 g/dL (3.4-5.0) L 12/08/19 13:35 Urine Color Yellow (Yellow) 12/10/19 03:10 Urine Clarity Sl cloudy (Clear) 12/10/19 03:10 Urine pH 5.5 (5-8) 12/10/19 03:10 Ur Specific [place] 1.020 (1.005-1.025) 12/10/19 03:10 Urine Protein 100 mg/dL (Negative) H 12/10/19 03:10 Urine Ketones Negative mg/dL (Negative) 12/10/19 03:10 Urine Blood Large (Negative) H 12/10/19 03:10 Urine Nitrite Negative (Negative) 12/10/19 03:10 Urine Bilirubin Negative (Negative) 12/10/19 03:10 Urine Urobilinogen 0.2 EU/dL (Up TO 0.2) 12/10/19 03:10 Ur Leukocyte Esterase Negative (Negative) 12/10/19 03:10 Urine RBC 20-50 HPF (0-2) H 12/10/19 03:10 Urine WBC 0-2 HPF (0-5) 12/10/19 03:10 Ur Epithelial Cells Few HPF (Negative) 12/10/19 03:10 Urine Crystals Negative HPF (Negative) 12/10/19 03:10 Urine Bacteria Few HPF (Negative) 12/10/19 03:10 Urine Casts Negative LPF (Negative) 12/10/19 03:10 Urine Mucus Trace (Negative) 12/10/19 03:10 Urine Other Negative (Negative) 12/10/19 03:10 Ur Culture Indicated? No 12/10/19 03:10 Urine Glucose Negative mg/dL (Negative) 12/10/19 03:10 Stool Campylobacter PCR Negative (Negative) 12/09/19 20:55 Stool Salmonella PCR Negative (Negative) 12/09/19 20:55 Stool Shigella PCR Negative (Negative) 12/09/19 20:55 Vancomycin Trough 15.4 ug/mL (10.0-20.0) 12/12/19 04:56 COVID-19 PCR Negative (Negative) 12/08/19 17:28 Nasopharyn COVID-19 PCR Not Applicable 12/08/19 17:28 Shiga Toxin (PCR) Negative (Negative) 12/09/19 20:55 Ref Test Perform Site [facility] lab 12/08/19 17:28 Patient ABO/Rh O Positive 12/08/19 13:35 Antibody Screen Negative 12/08/19 13:35
[2019-12-12] MEDS: POTASSIUM CHLORIDE/0.9% NACL 1,000 ML 100 MEQ IV (11:11)
[2019-12-12 16:32] VITALS: BP 132/82; PULSE 89; RESP 20; TEMP 36.6; O2SAT 94
[2019-12-12] MEDS: traMADol 50 MG TAB PO (19:02)
[2019-12-12] MEDS: Loperamide 2 MG CAP PO (19:03)
[2019-12-12 20:02] VITALS: BP 131/84; PULSE 89; RESP 20; TEMP 36.5; O2SAT 95
[2019-12-12] MEDS: Warfarin 5 MG TAB 10 MG PO (21:03)
[2019-12-12 23:58] VITALS: BP 116/59; PULSE 85; RESP 20; TEMP 36.1; O2SAT 95
[2019-12-13] MEDS: POTASSIUM CHLORIDE/0.9% NACL 1,000 ML 100 MEQ IV (01:01)
[2019-12-13] MEDS: CEFEPIME 2 GM in Normal Saline 100 ML IVPB (02:43)
[2019-12-13 03:35] VITALS: BP 114/75; PULSE 79; RESP 20; TEMP 36.7; O2SAT 95
[2019-12-13] MEDS: VANCOMYCIN 1,500 MG in Normal Saline 250 ML 167 MG IV (06:00)
[2019-12-13 07:01] LABS: Abs Immature Grans 0.26 k/cumm (0.0-0.09); HGB 10.6 g/dL (13.5-17.5); Mean Corp. HGB Concentration 33.1 g/dL (32.0-36.0); Mean Corpuscular Volume 84.4 fL (80-95); Mean Platelet Volume 9.9 fL (8.0-11.0); Platelet Count 256 x1000/uL (130-400); RBC 3.79 m/cumm (4.50-6.00); RBC Distribution Width 15.5 % (11.8-14.1); White Blood Cell Count 4.58 k/cumm (4.4-10.8)
[2019-12-13 07:11] LABS: Anion Gap 7.3 mmol/L (3-11); BUN 12 mg/dL (7-18); CO2 26.7 mmol/L (21.0-32.0); CREATININE 1.02 mg/dL (0.70-1.30); Calcium 7.8 mg/dL (8.5-10.1); Chloride 102 mmol/L (98-107); Glucose 294 mg/dL (74-106); Potassium 4.1 mmol/L (3.5-5.1); Sodium 136 mmol/L (136-145)
[2019-12-13 07:17] VITALS: BP 131/85; PULSE 82; RESP 18; TEMP 36; O2SAT 97
[2019-12-13 07:19] LABS: INR 1.3 (0.9-1.1); Prothrombin Time 13.3 sec (9.3-11.0)
[2019-12-13 07:39] LABS: Absolute Basophil Count 0.05 k/cumm (0.0-0.2); Absolute Lymphocyte Count 0.96 k/cumm (1.2-3.4); Absolute Monocyte Count 1.01 k/cumm (0.11-0.7); Absolute Neutrophil Count 2.34 k/cumm (1.2-6.7); Atypical Lymphocytes % 4
[2019-12-13 07:40] LABS: Diff Comment Manual Differential; Microcytosis 1+; Polychromasia Present
[2019-12-13 07:41] LABS: Poikilocytes 1+
[2019-12-13] MEDS: Insulin Aspart 300 UNITS/3 ML PEN SC (08:10)
[2019-12-13] MEDS: Potassium Chloride Liquid 20 MEQ PKT 40 MEQ PO (08:26)
[2019-12-13] MEDS: valACYclovir 500 MG TAB 1000 MG PO (08:26)
[2019-12-13] MEDS: Metoprolol CR 50 MG TABCR PO (08:27)
[2019-12-13] MEDS: Acetaminophen 500 MG TAB 1000 MG PO (08:27)
[2019-12-13] MEDS: Nystatin 500000 UNITS/5 ML SUSP 5ML CUP PO (08:28)
[2019-12-13] MEDS: Insulin Glargine 300 UNITS/3 ML PEN 20 UNITS SC (09:55)
[2019-12-13 11:25] VITALS: BP 136/85; PULSE 83; RESP 12; TEMP 35.2; O2SAT 97
[2019-12-13] MEDS: Normal Saline Flush 10 ML SYR IVP (11:55)
[2019-12-13] MEDS: Heparin 500 UNITS/5 ML SYRINGE IV (11:55)
--- NOTE | 2019-12-13 12:25 | W.PM.DS.N ---
Date of service: 12/13/19 Time of Service: 08:25 DS: Diagnosis Discharge Diagnosis (1) Neutropenic fever: Status: Acute (2) Bacteriuria: Status: Acute (3) Lower GI bleeding: Status: Acute (4) Diarrhea: Status: Acute (5) Supratherapeutic INR: Status: Acute (6) Hodgkin lymphoma: Status: Chronic (7) Chest pain: Status: Acute (8) Back pain: Status: Acute (9) Hypokalemia: Status: Acute (10) Hypomagnesemia: Status: Acute (11) Newly diagnosed diabetes: Status: Acute (12) Throat fullness: Status: Acute (13) Oral ulcer: Status: Acute (14) DVT prophylaxis: Status: Acute (15) Discharge planning issues: Status: Acute Discharge Plan Disposition Patient Disposition: HOME Condition: Stable Discharge Details Chief Complaint: Abd Prob Clinical Impression: Neutropenia, Chronic anticoagulation, Bandemia, Supratherapeutic INR, Abdominal pain, Rectal bleeding, Status post chemotherapy Reason For Visit: NEUTROPENIA, GI BLEEDING,SUPRATHERAPEUTIC INR Admit Date/Time: 12/08/19 16:15 Admit Provider: Janelle Sanz Attending Provider: Janelle Sanz Primary Care Provider: Emmanuel Yanes ED Provider: Francine Pineda Hospital Course Hospital Course: 49-year-old gentleman with Hodgkin's lymphoma on ABVD chemotherapy regimen, history of pulmonary embolus on warfarin who presented with abdominal pain and diarrhea with small amounts of blood. In the emergency room it was found his ANC was 210 his INR was 8. He was admitted initially for observation on reverse precautions and given vitamin K. Initially he was not given G-CSF due to interaction with bleomycin causing possible pulmonary toxicity. However, overnight he was febrile and his ANC continue to drop. Oncology was reconsulted over the phone, and recommended starting Neupogen. Initial infectious work-up did show bacteriuria and ceftriaxone was started, then expanded to cefepime and vancomycin per oncology recommendations. Urine culture grew pansensitive E. coli. Blood cultures were negative. His ANC increased from below 102 to above 900 on the day of discharge. Antibiotics were stopped when he was sent home, as he had received adequate treatment for the urine infection. Since INR dropped after the vitamin K. His hemoglobin was stable in the mid tens. He was restarted on warfarin 12/12/2019 given his ongoing risk for recurrent venous thromboembolic disease. He is on warfarin rather than low molecular weight heparin or NOAC given his size. INR was still low at 1.3, down from 1.6 after initial 10 mg dose. We will resume his previous dosing and follow-up with his INR as an outpatient. He had watery diarrhea that he has had since starting chemotherapy. There was no further blood, but Hemoccult was positive. C. difficile and stool bacterial antigen panel were negative. He was given loperamide. He was diagnosed with new diabetes with A1c of 7.2%. His blood sugars during hospitalization were mostly in the 200s, and he did have dry mouth and polyuria. Given this, he was started on his own Lantus insulin on a conservative dose of 20 units. Was given a prescription for metformin, but given his diarrhea he may have difficulty tolerating this. Patient had some throat fullness and irritation, and was given some Solu-Medrol, famotidine, and diphenhydramine early in the morning of December 11 over concern for possible angioedema. When patient was examined, it did not seem consistent with angioedema, and was felt likely related to throat dryness and possible thrush. He was started on nystatin. Did have ulcerations in the lateral tongue bases on both sides. These were most consistent with aphthous ulcers. HSV PCR was sent and is pending at the time of discharge. He was started on acyclovir, but this was stopped at discharge. He was given multiple doses of magnesium and potassium to treat low levels while inpatient. Home Meds and New Rx's Prescriptions: New nystatin 100,000 unit/mL Suspension 500,000 units PO TID Qty: 100 RF: 0 loperamide 2 mg Capsule 2 mg PO Q4H PRN PRNQty: 25 RF: 0 Lantus Solostar U-100 Insulin 100 unit/mL (3 mL) Insulin Pen 20 units subcut DAILY Qty: 1 RF: 3 metformin 500 mg tablet 500 mg PO DAILY Qty: 30 RF: 2 Continued chlorthalidone 25 mg tablet 25 mg PO DAILY Qty: 90 RF: 3 metoprolol succinate [Toprol XL] 50 mg tablet extended release 24 hr 50 mg PO DAILY Qty: 90 RF: 3 warfarin 5 mg tablet 10 mg PO DAILY Qty: 100 RF: 5 potassium chloride 20 mEq Packet 40 meq PO BID RF: 0 prochlorperazine maleate 10 mg Tablet 10 mg PO Q6H PRN PRNRF: 0 acetaminophen 500 mg Tablet 1,000 mg PO BID RF: 0 ondansetron 4 mg tablet,disintegrating 4 mg PO Q8H PRN PRNRF: 0 Discharge Instructions Instructions: Metformin (By mouth), Insulin Glargine (Injection), Type 2 Diabetes in Adults: New Diagnosis (ED), Neutropenia (GEN) Additional Instructions: Check you blood sugar 3 times a day until you follow up with your primary. The fasting in the morning is the most important to adjust the insulin. Try the metformin. If it makes your diarrhea worse you can stop. You can stop the nystatin if your mouth is feeling better Stand Alone Forms: Nursing Discharge Form Referrals: Emmanuel Yanes MD [Primary Care Provider] - 12/14/19 1:40 pm (curbside) Activity:: Activity as Tolerated Equipment/Supplies:: Insulin and needles Diet:: Carb Counting Discharge Orders Discharge Orders: Discharge Order (Routine); Ordered 12/13/19 Ordered By: Emmanuel Grimes DS: Summary Status at Discharge Functional status at discharge: independent ambulation Overall status at discharge: patient is progressing back to baseline Mental Status: mental status grossly normal Speech and Movement: speech and movement normal Mood: congruent mood Affect: normal affect Exam Narrative Exam Narrative: General: Pleasant, obese male, sitting up with ease, A&Ox3. HEENT: EOMI, MMM. I do not appreciate any so short ft tissue swelling around the face or neck. Irregularly shaped white ulceration about 6 to 8 mm bilateral bases of tongue. Not vesicular appearing. Not a lot of redness around it. Heart: RRR, I do not appreciate murmurs Lungs: CTAB, effort Abdomen: soft, nontender, nondistended Skin: No hives or other rashes. No new bruises. Extremities: 1+ edema BLE's, no c/c Psych Mental Status: mental status grossly normal Speech and Movement: speech and movement normal Mood: congruent mood Affect: normal affect DS: Data Vitals/I&O Vitals and I&O: Vital Signs Temperature 36 C L 12/13/19 07:17 Temperature Source Tympanic 12/13/19 07:17 Pulse 82 12/13/19 07:17 Pulse Rhythm Regular 12/13/19 08:51 Pulse 95 H 12/08/19 18:02 Respiratory Rate 18 12/13/19 07:17 Respiratory Effort 12/13/19 08:51 Respiratory Depth Normal 12/13/19 08:51 Respiratory Pattern Normal 12/13/19 08:51 Blood Pressure 131/85 12/13/19 07:17 Blood Pressure Mean 67 12/08/19 18:02 Blood Pressure Position Sitting 12/08/19 13:18 Pulse Oximetry 97 12/13/19 07:17 Oxygen Delivery Method Room Air 12/13/19 07:17 Oxygen Flow Rate 0 12/13/19 07:17 Pain Level 3 12/13/19 08:27 Comment 12/11/19 03:45 Intake & Output 12/12/19 12/13/19 12/13/19 23:59 11:59 23:59 Intake Total 2930 / 5471.667 340 / 340 Output Total 5150 / 5525 500 / 500 Balance -2220 / -53.333 -160 / -160 Weight 198.7 kg Intake: IV 1600 / 3051.667 100 / 100 Oral 1330 / 2420 240 / 240 Output: Urine 4750 / 5125 500 / 500 Stool 400 / 400 Other: Urine Color Yellow Yellow Urine Appearance Clear Clear Urine Odor Normal Normal Stool Occult Blood Negative Stool Size Small Moderate Stool Characteristics Soft Soft Liquid Mucoid Voiding Methods Toilet Toilet Data Completed and Pending Labs on day of discharge: Labs from last 24 hours 12/13/19 12/13/19 12/13/19 13:00 06:20 06:20 WBC 4.58 D RBC 3.79 L Hgb 10.6 L Hct 32.0 L MCV 84.4 MCH 28.0 MCHC 33.1 RDW 15.5 H Plt Count 256 MPV 9.9 Immature Gran % See Differential Neutrophils % 26.0 Band Neutrophils % 25.0 Lymphocytes % 17.0 Atypical Lymphs % 4 Monocytes % 22.0 Eosinophils % 0.0 Basophils % 1.0 Metamyelocytes % 3.0 Myelocytes % 2.0 Absolute Neutrophils 2.34 Absolute Lymphocytes 0.96 L Absolute Monocytes 1.01 H Absolute Eosinophils 0.00 Absolute Basophils 0.05 Differential Comment Manual differential RBC Morphology See below Polychromasia Present Poikilocytosis 1+ Microcytosis 1+ PT INR Sodium 136 Potassium 4.1 D Chloride 102 Carbon Dioxide 26.7 Anion Gap 7.3 BUN 12 Creatinine 1.02 Estimated GFR/1.73 m2 >= 60.00 Glucose 294 H D Calcium 7.8 L Vancomycin Trough Cancelled Path Cons Comment 12/13/19 12/10/19 06:20 06:25 WBC RBC Hgb Hct MCV MCH MCHC RDW Plt Count MPV Immature Gran % Neutrophils % Band Neutrophils % Lymphocytes % Atypical Lymphs % Monocytes % Eosinophils % Basophils % Metamyelocytes % Myelocytes % Absolute Neutrophils Absolute Lymphocytes Absolute Monocytes Absolute Eosinophils Absolute Basophils Differential Comment RBC Morphology Polychromasia Poikilocytosis Microcytosis PT 13.3 H INR 1.3 H Sodium Potassium Chloride Carbon Dioxide Anion Gap BUN Creatinine Estimated GFR/1.73 m2 Glucose Calcium Vancomycin Trough Path Cons Comment Preliminary micro results at discharge 12/08/19 19:22 Blood Culture - Preliminary Blood NO GROWTH 96 HOURS 12/08/19 19:00 Blood Culture - Preliminary Blood NO GROWTH 96 HOURS PFSH Medical History (Updated 12/12/19 @ 10:35 by Emmanuel Grimes) 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 Father No problems noted. Sister No problems noted. Maternal Grandfather Stroke Paternal Grandfather No problems noted. Maternal Grandmother Heart disease Stroke Paternal Grandmother No problems noted. Other Adopted Social History (Updated 07/06/19 @ 13:43 by Beau Faust) Smoking/Tobacco Use Status: Former Tobacco Use Quit Date: 09/08/19 Alcohol Intake: never Drug use: Never Substance use type: does not use Caregiver/Support person: No Household members: significant other Housing: house Do you need help understanding health information?: Never Pets and animals: No Sexually active: Yes Do you think of yourself as: straight/heterosexual Current gender identity: decline to answer What is your relationship status?: living with partner How often do you talk on the phone with friends or family?: decline to answer How often do you get together with friends or relatives?: decline to answer How often do you attend roman catholic or methodist services?: decline to answer Do you belong to any clubs or organized social groups?: decline to answer Panel score (0-1 are the most socially isolated patients): 1 What type of physical activity do you participate in: walking Duration: decline to answer Frequency: decline to answer Morelia/Sabianism: No preference Special morelia needs: No Seatbelt use: always Drive intox or ride w/intox straddle truck driver: No Do you feel safe at home: Yes Do you feel safe in your relationship?: Yes
--- NOTE | 2019-12-13 13:13 | PDOC.CMDIS ---
LACE Index Scoring Tool - Questions: Length of Stay (in days): 4 - 6 Acuity (Admit via E.D.?): Yes Comorbidities: Diabetes w/o Complication, Any Tumor E.D. Visits: 2 - Answers: Total Score: 12 Risk of Readmission: High Risk Care Management Discharge Reason for Hospitalization: Neutropenia, GI bleeding, surpratherapeutic INR Discharge Plan: Jarrod will return home once medically cleared, he will discharge home with no additional services and follow up with his oncologist and primary care provider. His SO will drive him home via private vehicle when ready. CM supported coordination of new diabetic medications. Patient/Family Education Needs: Review discharge instructions, discuss Ask Me Three.
[2019-12-13 22:47] LABS: HSV 1 PCR, Varies Negative (Negative); HSV 2 PCR, Varies Negative (Negative); Herpes Source mouth
== END 2019-12-13 12:18 | disposition home or self-care (01) | DRG 809 ==
LOC: ER 16:47 → MS 18:30
PROVIDERS: Family Medicine; Admitting Provider Internal Medicine; Emergency Provider Physician Assistant; PCP Family Medicine; Visit Provider Family Medicine
DX: D70.1 Agranulocytosis secondary to cancer chemotherapy (principal); C81.90 Hodgkin lymphoma, unspecified, unspecified site; K92.1 Melena; D68.32 Hemorrhagic disorder due to extrinsic circulating anticoagulants; B37.0 Candidal stomatitis; K52.1 Toxic gastroenteritis and colitis; N39.0 Urinary tract infection, site not specified; R50.81 Fever presenting with conditions classified elsewhere; T45.515A Adverse effect of anticoagulants, initial encounter; Z79.01 Long term (current) use of anticoagulants; T45.1X5A Adverse effect of antineoplastic and immunosuppressive drugs, initial encounter; B96.20 Unspecified Escherichia coli [E. coli] as the cause of diseases classified elsewhere; Z86.711 Personal history of pulmonary embolism; E11.9 Type 2 diabetes mellitus without complications; K14.0 Glossitis; E83.42 Hypomagnesemia; E87.6 Hypokalemia; R07.9 Chest pain, unspecified; M54.9 Dorsalgia, unspecified; Z03.818 Encounter for observation for suspected exposure to other biological agents ruled out; Z71.3 Dietary counseling and surveillance
CPT/HCPCS: 36415; 36416; 71275; 74177; 80048; 80053; 82962; 86850; 86900; 86901; 87040; 87077; 87505; 87529; 93005; 96361; 96365; 96368; 96375; 99223; 99232; 99233; 99239; 99285; U0003; 80202; 81003; 81015; 83036; 83735; 84484; 85014; 85018; 85025; 85610; 85730; 87086; 87186; 87324; 93010; 93306; J0696; J1200; J2930; J3370; J3475; J3480; J3490; Q9967

== ENCOUNTER 2019-12-22 01:55 | Outpatient (RCR) | payer OTHER, SELFPAY ==
[2019-12-01] MEDS: Normal Saline Flush 10 ML SYR IVP (11:36)
[2019-12-01 11:51] LABS: Abs Immature Grans 0.02 k/cumm (0.0-0.09); HCT 41.1 % (40.0-50.0); HGB 13.2 g/dL (13.5-17.5); Mean Corp. HGB Concentration 32.1 g/dL (32.0-36.0); Mean Corpuscular Hemoglobin 27.4 pg (27.0-33.0); Mean Corpuscular Volume 85.4 fL (80-95); Mean Platelet Volume 9.7 fL (8.0-11.0); RBC 4.81 m/cumm (4.50-6.00); RBC Distribution Width 15.6 % (11.8-14.1); White Blood Cell Count 3.35 k/cumm (4.4-10.8)
[2019-12-01 11:57] LABS: ALT 35 U/L (16-63); AST 22 U/L (15-37); Albumin 3.2 g/dL (3.4-5.0); Alkaline Phosphatase 39 U/L (46-116); Anion Gap 5.3 mmol/L (3-11); BUN 11 mg/dL (7-18); Bilirubin, Total 0.3 mg/dL (0.2-1.0); CO2 32.7 mmol/L (21.0-32.0); CREATININE 1.05 mg/dL (0.70-1.30); Calcium 9.1 mg/dL (8.5-10.1); Chloride 99 mmol/L (98-107); Glucose 139 mg/dL (74-106); Sodium 137 mmol/L (136-145)
[2019-12-01 12:05] LABS: Potassium 2.8 mmol/L (3.5-5.1)
[2019-12-01 12:13] LABS: Prothrombin Time 39.2 sec (9.3-11.0)
[2019-12-01 12:22] LABS: Platelet Count 388 x1000/uL (130-400)
[2019-12-01 12:23] LABS: Absolute Basophil Count 0.07 k/cumm (0.0-0.2); Absolute Eosinophil Count 0.23 k/cumm (0.0-0.7); Absolute Lymphocyte Count 1.44 k/cumm (1.2-3.4); Absolute Monocyte Count 0.97 k/cumm (0.11-0.7); Diff Comment Manual Differential; RBC Morphology Normal
[2019-12-01 12:26] LABS: Absolute Neutrophil Count 0.64 k/cumm (1.2-6.7)
[2019-12-15] MEDS: Normal Saline Flush 10 ML SYR IVP (10:49)
[2019-12-15 10:58] LABS: Abs Immature Grans 4.51 k/cumm (0.0-0.09); HCT 35.7 % (40.0-50.0); HGB 11.5 g/dL (13.5-17.5); Mean Corp. HGB Concentration 32.2 g/dL (32.0-36.0); Mean Corpuscular Hemoglobin 27.8 pg (27.0-33.0); Mean Corpuscular Volume 86.4 fL (80-95); Mean Platelet Volume 10.2 fL (8.0-11.0); Platelet Count 278 x1000/uL (130-400); RBC 4.13 m/cumm (4.50-6.00); RBC Distribution Width 16.4 % (11.8-14.1); White Blood Cell Count 15.44 k/cumm (4.4-10.8)
[2019-12-15 11:10] LABS: ALT 37 U/L (16-63); AST 28 U/L (15-37); Albumin 2.6 g/dL (3.4-5.0); Alkaline Phosphatase 47 U/L (46-116); Anion Gap 5.9 mmol/L (3-11); BUN 14 mg/dL (7-18); Bilirubin, Total 0.2 mg/dL (0.2-1.0); CO2 33.1 mmol/L (21.0-32.0); CREATININE 1.03 mg/dL (0.70-1.30); Calcium 8.6 mg/dL (8.5-10.1); Chloride 103 mmol/L (98-107); Glucose 118 mg/dL (74-106); Sodium 142 mmol/L (136-145); Total Protein 6.2 g/dL (6.4-8.2)
[2019-12-15 11:53] LABS: Absolute Neutrophil Count 6.95 k/cumm (1.2-6.7); Atypical Lymphocytes % 3
[2019-12-15 11:54] LABS: Absolute Lymphocyte Count 4.32 k/cumm (1.2-3.4); Absolute Monocyte Count 2.32 k/cumm (0.11-0.7); Diff Comment Manual Differential; Nucleated RBC 2 /100WBC
[2019-12-15 11:55] LABS: Hypochromasia 1+; Polychromasia Present
== END 2019-12-28 23:59 | disposition home or self-care (01) ==
LOC: INF 01:55
PROVIDERS: Nurse Practitioner Family; PCP Family Medicine; Visit Provider Internal Medicine Hematology & Oncology
DX: C81.18 Nodular sclerosis Hodgkin lymphoma, lymph nodes of multiple sites (principal); Z45.2 Encounter for adjustment and management of vascular access device; I26.99 Other pulmonary embolism without acute cor pulmonale; Z79.01 Long term (current) use of anticoagulants; Z86.718 Personal history of other venous thrombosis and embolism
CPT/HCPCS: 36591; 80053; 85025; 85610

== ENCOUNTER 2020-01-25 03:51 | Outpatient (CLI) | payer OTHER, SELFPAY ==
[2020-01-25 12:47] LABS: Potassium 4.3 mmol/L (3.5-5.1)
== END 2020-01-25 04:11 ==
PROVIDERS: PCP Family Medicine; Visit Provider Nurse Practitioner
DX: E87.6 Hypokalemia (principal)
CPT/HCPCS: 36415; 84132

== ENCOUNTER 2020-01-26 02:38 | Outpatient (RCR) | payer OTHER, SELFPAY ==
[2019-12-29] MEDS: Normal Saline Flush 10 ML SYR IVP (11:29)
[2019-12-29 11:42] LABS: Abs Immature Grans 0.01 k/cumm (0.0-0.09); Absolute Basophil Count 0.14 k/cumm (0.0-0.2); Absolute Eosinophil Count 0.21 k/cumm (0.0-0.7); Absolute Lymphocyte Count 1.34 k/cumm (1.2-3.4); Absolute Monocyte Count 0.47 k/cumm (0.11-0.7); Basophils % 4.2; Eosinophils % 6.2; HCT 35.6 % (40.0-50.0); HGB 11.5 g/dL (13.5-17.5); Immature Grans % 0.3 %; Lymphocytes % 39.8; Mean Corp. HGB Concentration 32.3 g/dL (32.0-36.0); Mean Corpuscular Hemoglobin 27.6 pg (27.0-33.0); Mean Corpuscular Volume 85.6 fL (80-95); Mean Platelet Volume 9.9 fL (8.0-11.0); Monocytes % 13.9; Neutrophils % 35.6; Platelet Count 346 x1000/uL (130-400); RBC 4.16 m/cumm (4.50-6.00); RBC Distribution Width 16.8 % (11.8-14.1); White Blood Cell Count 3.37 k/cumm (4.4-10.8)
[2019-12-29 11:57] LABS: ALT 29 U/L (16-63); AST 24 U/L (15-37); Albumin 3.1 g/dL (3.4-5.0); Alkaline Phosphatase 38 U/L (46-116); Anion Gap 5.7 mmol/L (3-11); BUN 14 mg/dL (7-18); Bilirubin, Total 0.3 mg/dL (0.2-1.0); CO2 32.3 mmol/L (21.0-32.0); CREATININE 0.95 mg/dL (0.70-1.30); Calcium 8.9 mg/dL (8.5-10.1); Chloride 101 mmol/L (98-107); Glucose 118 mg/dL (74-106); Sodium 139 mmol/L (136-145); Total Protein 6.6 g/dL (6.4-8.2)
[2019-12-29 12:00] LABS: Diff Comment Diff Reviewed; Potassium 2.6 mmol/L (3.5-5.1); RBC Morphology Normal
[2019-12-29 12:35] LABS: Prothrombin Time 46.6 sec (9.3-11.0)
[2019-12-29 12:38] LABS: INR 4.8 (0.9-1.1)
[2020-01-12] MEDS: Normal Saline Flush 10 ML SYR IVP (08:10)
[2020-01-12 08:12] LABS: Abs Immature Grans 0.02 k/cumm (0.0-0.09); Absolute Eosinophil Count 0.61 k/cumm (0.0-0.7); Absolute Lymphocyte Count 1.49 k/cumm (1.2-3.4); Absolute Monocyte Count 0.58 k/cumm (0.11-0.7); Absolute Neutrophil Count 4.07 k/cumm (1.2-6.7); Basophils % 2.9; Eosinophils % 8.8; HCT 36.4 % (40.0-50.0); HGB 11.8 g/dL (13.5-17.5); Immature Grans % 0.3 %; Lymphocytes % 21.4; Mean Corp. HGB Concentration 32.4 g/dL (32.0-36.0); Mean Corpuscular Hemoglobin 28.3 pg (27.0-33.0); Mean Corpuscular Volume 87.3 fL (80-95); Mean Platelet Volume 9.9 fL (8.0-11.0); Monocytes % 8.3; Neutrophils % 58.3; Platelet Count 216 x1000/uL (130-400); RBC 4.17 m/cumm (4.50-6.00); RBC Distribution Width 18.6 % (11.8-14.1); White Blood Cell Count 6.97 k/cumm (4.4-10.8)
[2020-01-12 08:23] LABS: ALT 27 U/L (16-63); AST 22 U/L (15-37); Albumin 3.3 g/dL (3.4-5.0); Alkaline Phosphatase 42 U/L (46-116); BUN 15 mg/dL (7-18); Bilirubin, Total 0.4 mg/dL (0.2-1.0); CREATININE 0.98 mg/dL (0.70-1.30); Calcium 8.9 mg/dL (8.5-10.1); Chloride 102 mmol/L (98-107); Glucose 153 mg/dL (74-106); Potassium 3.6 mmol/L (3.5-5.1); Sodium 141 mmol/L (136-145); Total Protein 6.8 g/dL (6.4-8.2)
== END 2020-01-28 23:59 | disposition home or self-care (01) ==
LOC: INF 02:38
PROVIDERS: PCP Family Medicine; Visit Provider Internal Medicine Hematology & Oncology
DX: C81.18 Nodular sclerosis Hodgkin lymphoma, lymph nodes of multiple sites (principal); Z45.2 Encounter for adjustment and management of vascular access device
CPT/HCPCS: 36591; 80053; 85025; 85610

== ENCOUNTER 2020-02-17 01:39 | Outpatient (CLI) | payer OTHER, SELFPAY ==
[2020-02-17 12:48] LABS: Anion Gap 8.4 mmol/L (3-11); BUN 18 mg/dL (7-18); CO2 29.6 mmol/L (21.0-32.0); CREATININE 0.85 mg/dL (0.70-1.30); Chloride 103 mmol/L (98-107); Glucose 97 mg/dL (74-106); Potassium 3.5 mmol/L (3.5-5.1); Sodium 141 mmol/L (136-145)
== END 2020-02-17 01:59 ==
PROVIDERS: PCP Nurse Practitioner Family; Visit Provider Family Medicine
DX: I10 Essential (primary) hypertension (principal)
CPT/HCPCS: 36415; 80048

== ENCOUNTER 2020-02-23 01:26 | Outpatient (RCR) | payer OTHER, SELFPAY | END 2020-02-28 23:59 | disposition home or self-care (01) | LOC: INF 01:26 | PROVIDERS: PCP Nurse Practitioner Family; Visit Provider Internal Medicine Hematology & Oncology | DX: R69 Illness, unspecified (principal) ==

== ENCOUNTER 2020-08-02 09:40 | Outpatient (CLI) | payer BC, SELFPAY ==
[2020-08-02 10:47] LABS: Abs Immature Grans 0.03 10^3/uL (0.0-0.06); Absolute Basophil Count 0.09 10^3/uL (0.0-0.2); Absolute Eosinophil Count 0.31 10^3/uL (0.0-0.7); Absolute Lymphocyte Count 1.85 10^3/uL (1.2-3.4); Absolute Monocyte Count 0.66 10^3/uL (0.1-0.8); Absolute Neutrophil Count 4.15 10^3/uL (1.2-6.7); Basophils % 1.3; Eosinophils % 4.4; HCT 43.3 % (40.0-50.0); HGB 14.2 g/dL (13.5-17.5); Immature Grans % 0.4; Lymphocytes % 26.1; MCH 28.6 pg (27.0-33.0); MCHC 32.8 % (32.0-36.0); MCV 87.3 fL (80-95); MPV 10.7 fL (8.0-11.0); Monocytes % 9.3; Neutrophils % 58.5; Nucleated RBC 0 %; Platelet Count 184 10^3/uL (130-400); RBC 4.96 10^6/uL (4.36-5.78); RDW 14.9 % (11.8-14.1); RDW-SD 47.4 fL; WBC 7.09 10^3/uL (4.4-10.8)
[2020-08-02 11:00] LABS: Hemoglobin A1C 5.7 % (<5.7)
[2020-08-02 11:26] LABS: ESR 29 mm/hr (0-15)
[2020-08-02 11:56] LABS: ALT 31 U/L (16-63); AST 19 U/L (15-37); Albumin 3.6 g/dL (3.4-5.0); Alkaline Phosphatase 44 U/L (46-116); BUN 17 mg/dL (7-18); Bilirubin, Total 0.3 mg/dL (0.2-1.0); Calcium 8.7 mg/dL (8.5-10.1); Calculated LDL 109 mg/dL (<100); Cholesterol 186 mg/dL (<200); Glucose 90 mg/dL (74-106); HDL Cholesterol 39 mg/dL (40-60); TSH 1.11 uIU/mL (0.36-3.74); Total Protein 6.6 g/dL (6.4-8.2); Triglyceride 190 mg/dL (<150)
[2020-08-02 12:10] LABS: Chloride 102 mmol/L (98-107); Potassium 3.6 mmol/L (3.5-5.1); Sodium 140 mmol/L (136-145)
[2020-08-02 12:11] LABS: Anion Gap 13.1 mmol/L (3-11); CO2 24.9 mmol/L (21.0-32.0)
== END 2020-08-02 09:41 | disposition home or self-care (01) ==
LOC: LBO 09:50
PROVIDERS: PCP Nurse Practitioner Family; Visit Provider Internal Medicine Hematology & Oncology
DX: C81.18 Nodular sclerosis Hodgkin lymphoma, lymph nodes of multiple sites (principal)
CPT/HCPCS: 80048; 80053; 80061; 85652; 83036; 84443; 85025

== ENCOUNTER 2020-08-18 12:00 | Outpatient (CLI) | payer BC, SELFPAY ==
--- NOTE | 2020-08-18 12:00 | RT.EKG_ITS ---
APPROVED REPORT Exam: Resting ECG Patient Location: O HR:72 bpm ECG Measurements Heart Rate 72 AXIS NM 164 P 38 QRSd 128 QRS -31 QT 415 T 32 QTc 454 Conclusion Sinus rhythm...normal P axis, V-rate 60- 99 Ventricular bigeminy...bigeminy string>4 w/ V complexes IVCD, consider RBBB...QRSd>120mS, terminal axis(90,270)
== END 2020-08-18 12:01 | disposition home or self-care (01) ==
PROVIDERS: PCP Nurse Practitioner Family; Visit Provider Nurse Practitioner Family
DX: R00.1 Bradycardia, unspecified (principal)
CPT/HCPCS: 93010

== ENCOUNTER 2020-08-21 03:21 | Outpatient (CLI) | payer BC, SELFPAY ==
--- NOTE | 2020-09-07 09:56 | ZIOP_ITS ---
Date of service: 09/07/20 Time of Service: 09:56 14 Day Multi Disciplined Language Analyst Referring Provider:: Jai Indications:: Palps Note: This is a 14-day monitor order for indication of tachycardia. The patient was in normal sinus rhythm for the majority of the recording with an average heart rate of 73 bpm. Patient had 15 total episodes of supraventricular tachycardia with the longest lasting 15 beats at a rate of 175 bpm. There were no episodes of ventricular tachycardia and rare (1.7%) PVCs. There were runs of bigeminy and trigeminy as well. PVCs were polymorphic There were no episodes of atrial fibrillation, no pauses greater than 3 seconds and no evidence of high degree heart block. There was 1 patient triggered event associated with sinus tachycardia.
== END 2020-08-21 03:22 | disposition home or self-care (01) ==
PROVIDERS: PCP Nurse Practitioner Family; Visit Provider Nurse Practitioner Family
DX: R00.2 Palpitations (principal)
CPT/HCPCS: 93246

== ENCOUNTER 2020-10-03 02:47 | Outpatient (CLI) | payer BC, SELFPAY ==
[2020-10-05 15:39] LABS: COVID-19 RT-PCR UVMMC Result Positive (Negative)
== END 2020-10-03 02:48 | disposition home or self-care (01) ==
LOC: LBO 02:47
PROVIDERS: PCP Nurse Practitioner Family; Visit Provider Family Medicine
DX: Z20.822 Contact with and (suspected) exposure to COVID-19 (principal); R51.9 Headache, unspecified
CPT/HCPCS: U0003

== ENCOUNTER 2020-10-17 02:39 | Outpatient (CLI) | payer BC, SELFPAY ==
[2020-10-17 09:39] LABS: Abs Immature Grans 0.03 10^3/uL (0.0-0.06); Absolute Basophil Count 0.07 10^3/uL (0.0-0.2); Absolute Eosinophil Count 0.36 10^3/uL (0.0-0.7); Absolute Lymphocyte Count 1.65 10^3/uL (1.2-3.4); Absolute Monocyte Count 0.85 10^3/uL (0.1-0.8); Absolute Neutrophil Count 4.85 10^3/uL (1.2-6.7); Basophils % 0.9; Eosinophils % 4.6; HCT 42.9 % (40.0-50.0); HGB 14.2 g/dL (13.5-17.5); Immature Grans % 0.4; Lymphocytes % 21.1; MCH 29.2 pg (27.0-33.0); MCHC 33.1 % (32.0-36.0); MCV 88.1 fL (80-95); MPV 10.5 fL (8.0-11.0); Monocytes % 10.9; Neutrophils % 62.1; Nucleated RBC 0 %; Platelet Count 219 10^3/uL (130-400); RBC 4.87 10^6/uL (4.36-5.78); RDW 14.3 % (11.8-14.1); RDW-SD 45.5 fL; WBC 7.81 10^3/uL (4.4-10.8)
[2020-10-17 09:49] LABS: ESR 34 mm//hr (0-15)
[2020-10-17 09:53] LABS: INR 2.8 (0.9-1.1); Prothrombin Time 27.4 sec (9.3-11.0)
[2020-10-17 11:14] LABS: ALT 38 U/L (16-63); AST 18 U/L (15-37); Albumin 3.7 g/dL (3.4-5.0); Alkaline Phosphatase 44 U/L (46-116); Anion Gap 10.3 mmol/L (3-11); BUN 19 mg/dL (7-18); Bilirubin, Total 0.4 mg/dL (0.2-1.0); CO2 29.7 mmol/L (21.0-32.0); CREATININE 1.1 mg/dL (0.70-1.30); Calcium 9.2 mg/dL (8.5-10.1); Chloride 102 mmol/L (98-107); Glucose 97 mg/dL (74-106); Potassium 3.8 mmol/L (3.5-5.1); Sodium 142 mmol/L (136-145); Total Protein 6.7 g/dL (6.4-8.2)
== END 2020-10-17 02:40 | disposition home or self-care (01) ==
LOC: LBO 02:39
PROVIDERS: Internal Medicine Hematology & Oncology; PCP Nurse Practitioner Family; Visit Provider Nurse Practitioner Family
DX: C81.18 Nodular sclerosis Hodgkin lymphoma, lymph nodes of multiple sites (principal); Z86.711 Personal history of pulmonary embolism; Z79.01 Long term (current) use of anticoagulants
CPT/HCPCS: 36415; 80053; 85652; 84443; 85025; 85610

== ENCOUNTER 2020-11-20 02:24 | Outpatient (CLI) | payer BC, SELFPAY ==
[2020-11-20 10:24] LABS: Prothrombin Time 19.5 sec (9.3-11.0)
== END 2020-11-20 02:25 | disposition home or self-care (01) ==
LOC: LBO 02:24
PROVIDERS: PCP Nurse Practitioner Family; Visit Provider Nurse Practitioner Family
DX: Z86.711 Personal history of pulmonary embolism (principal); Z79.01 Long term (current) use of anticoagulants
CPT/HCPCS: 36415; 85610

== ENCOUNTER 2020-12-18 01:47 | Outpatient (CLI) | payer BC, SELFPAY ==
--- NOTE | 2020-12-18 | DI.CT_ITS ---
Exam(s) CT NECK CHEST W EXAM: CT NECK CHEST W CLINICAL HISTORY: C81.18 TECHNIQUE: COMPARISON: CT CT CHEST W from 06/15/[address] NECK W from 06/15/[address] ABDOMEN PELVIS W from 10/24/2020 FINDINGS: CT examination of the neck and chest was performed. 100 cc of Omnipaque 350 was injected intravenous ly. Examination is compared with prior CT of May 2019 which showed mildly increased size of superior mediastinal lymph nodes and a left supraclavicular king[place] mass, diagnosis was reportedly lymphoma. On today's examination, the supraclavicular mass on the left is markedly decreased in size. Minimall y asymmetrical supraclavicular nodes are noted on the left, the largest measuring about 13 millimeter s in greatest diameter. No new adenopathy identified in the upper cervical region. Tracheolaryngeal structures grossly intact although visualized in a limited fashion due to motion artifact. Salivary glands unremarkable. Visualized brain and orbits unremarkable. Incidental opacification of right m axillary sinus noted, presumably secondary to chronic sinusitis. A previously noted low-attenuation splenic lesion is unchanged from prior examination. Visualized li viviana, pancreas, and kidneys unremarkable. Left adrenal nodularity again noted, unchanged from prior s tudy and of low attenuation consistent with adenoma. No dominant mediastinal or hilar adenopathy. Previously described 13 millimeter superior mediastinal node/nodes now measure less than 1 cm in diameter. No gross pulmonary emboli noted. Thoracic aorti c ectasia noted at 48 millimeters in the ascending portion. Tracheobronchial tree appears intact. N o pulmonary mass or consolidation. No pleural effusion or pleural-based mass. IMPRESSION: No evidence of acute process. No evidence of recurrent lymphoma by CT criteria. If there is a high clinical suspicion of recurrent disease additional evaluation with PET-CT may be obtained.. RADIATION DOSE DELIVERED: 2,141.4mGy.cm Total DLP RADIATION OPTIMIZATION: All CT scans at this facility use at least one of these dose optimization te chniques: automated exposure control; mA and/or kV adjustment per patient size (includes targeted exa ms where dose is matched to clinical indication); or iterative reconstruction.
[2020-12-18 14:40] LABS: Abs Immature Grans 0.03 10^3/uL (0.0-0.06); Absolute Basophil Count 0.07 10^3/uL (0.0-0.2); Absolute Eosinophil Count 0.36 10^3/uL (0.0-0.7); Absolute Lymphocyte Count 2.04 10^3/uL (1.2-3.4); Absolute Monocyte Count 0.91 10^3/uL (0.1-0.8); Absolute Neutrophil Count 4.62 10^3/uL (1.2-6.7); Basophils % 0.9; Eosinophils % 4.5; HCT 44.1 % (40.0-50.0); HGB 14.4 g/dL (13.5-17.5); Immature Grans % 0.4; Lymphocytes % 25.4; MCH 29.8 pg (27.0-33.0); MCHC 32.7 % (32.0-36.0); MCV 91.3 fL (80-95); MPV 9.6 fL (8.0-11.0); Monocytes % 11.3; Neutrophils % 57.5; Nucleated RBC 0 %; Platelet Count 214 10^3/uL (130-400); RBC 4.83 10^6/uL (4.36-5.78); RDW 14.2 % (11.8-14.1); RDW-SD 47.8 fL; WBC 8.03 10^3/uL (4.4-10.8)
[2020-12-18 14:43] LABS: ESR 18 mm/hr (0-15)
[2020-12-18] MEDS: Normal Saline - Diluent 50 ML VIAL IV (15:20)
[2020-12-18] MEDS: Omnipaque 350 MG/ML 100 ML BTL IJ (15:21)
[2020-12-18] MEDS: Omnipaque 350 MG/ML 50 ML BTL 30 ML IJ (15:22)
[2020-12-18 15:49] LABS: ALT 35 U/L (16-63); AST 18 U/L (15-37); Albumin 3.6 g/dL (3.4-5.0); Alkaline Phosphatase 42 U/L (46-116); Anion Gap 8.5 mmol/L (3-11); BUN 20 mg/dL (7-18); Bilirubin, Total 0.3 mg/dL (0.2-1.0); CO2 31.5 mmol/L (21.0-32.0); CREATININE 1.1 mg/dL (0.70-1.30); Calcium 9.2 mg/dL (8.5-10.1); Chloride 103 mmol/L (98-107); Glucose 104 mg/dL (74-106); Potassium 3.6 mmol/L (3.5-5.1); Sodium 143 mmol/L (136-145); TSH 1.44 uIU/mL (0.36-3.74); Total Protein 7.4 g/dL (6.4-8.2)
== END 2020-12-18 02:07 ==
PROVIDERS: PCP Nurse Practitioner Family; Visit Provider Internal Medicine Hematology & Oncology
DX: C81.18 Nodular sclerosis Hodgkin lymphoma, lymph nodes of multiple sites (principal)
CPT/HCPCS: 70491; 80053; 85652; 71260; 84443; 85025; J3490; Q9967

== ENCOUNTER 2020-12-19 18:59 | Outpatient (CLI) | payer BC, SELFPAY ==
[2020-12-19 13:37] LABS: INR 2.2 (0.9-1.1); Prothrombin Time 21.7 sec (9.3-11.0)
== END 2020-12-19 19:00 | disposition home or self-care (01) ==
PROVIDERS: PCP Nurse Practitioner Family; Visit Provider Nurse Practitioner Family
DX: I49.8 Other specified cardiac arrhythmias (principal); Z86.711 Personal history of pulmonary embolism; Z79.01 Long term (current) use of anticoagulants
CPT/HCPCS: 36415; 85610

== ENCOUNTER 2021-01-24 03:28 | Outpatient (CLI) | payer BC, SELFPAY ==
[2021-01-24 09:31] LABS: Prothrombin Time 20.1 sec (9.3-11.0)
== END 2021-01-24 03:29 | disposition home or self-care (01) ==
LOC: LBO 03:28
PROVIDERS: PCP Nurse Practitioner Family; Visit Provider Nurse Practitioner Family
DX: I49.8 Other specified cardiac arrhythmias (principal); Z86.711 Personal history of pulmonary embolism; Z79.01 Long term (current) use of anticoagulants
CPT/HCPCS: 36415; 85610

== ENCOUNTER 2021-02-28 03:02 | Outpatient (CLI) | payer BC, SELFPAY ==
[2021-02-28 11:01] LABS: INR 2.1 (0.9-1.1); Prothrombin Time 20.4 sec (9.3-11.0)
== END 2021-02-28 03:03 | disposition home or self-care (01) ==
LOC: LBO 03:02
PROVIDERS: PCP Nurse Practitioner Family; Visit Provider Nurse Practitioner Family
DX: Z86.711 Personal history of pulmonary embolism (principal); Z79.01 Long term (current) use of anticoagulants
CPT/HCPCS: 36415; 85610

== ENCOUNTER 2021-04-12 02:32 | Outpatient (CLI) | payer BC, SELFPAY ==
[2021-04-12 12:47] LABS: Prothrombin Time 20.2 sec (9.3-11.0)
== END 2021-04-12 02:33 | disposition home or self-care (01) ==
LOC: LOS 02:33
PROVIDERS: PCP Nurse Practitioner Family; Visit Provider Nurse Practitioner Family
DX: Z86.711 Personal history of pulmonary embolism (principal)
CPT/HCPCS: 36415; 85610

== ENCOUNTER 2021-05-02 03:16 | Outpatient (CLI) | payer BC, SELFPAY ==
[2021-05-02 11:12] LABS: ESR 12 mm/hr (0-20)
[2021-05-02 11:13] LABS: Abs Immature Grans 0.02 10^3/uL (0.0-0.06); Absolute Basophil Count 0.09 10^3/uL (0.0-0.2); Absolute Eosinophil Count 0.33 10^3/uL (0.0-0.7); Absolute Lymphocyte Count 2.48 10^3/uL (1.2-3.4); Absolute Monocyte Count 0.91 10^3/uL (0.1-0.8); Absolute Neutrophil Count 4.65 10^3/uL (1.2-6.7); Basophils % 1.1; Eosinophils % 3.9; HCT 46.8 % (40.0-50.0); HGB 15.3 g/dL (13.5-17.5); Immature Grans % 0.2; Lymphocytes % 29.2; MCH 29.8 pg (27.0-33.0); MCHC 32.7 % (32.0-36.0); MCV 91.1 fL (80-95); Monocytes % 10.7; Neutrophils % 54.9; Nucleated RBC 0 %; Platelet Count 213 10^3/uL (130-400); RBC 5.14 10^6/uL (4.36-5.78); RDW 13.8 % (11.8-14.1); RDW-SD 46.5 fL; WBC 8.48 10^3/uL (4.4-10.8)
[2021-05-02 11:38] LABS: ALT 38 U/L (16-63); AST 19 U/L (15-37); Albumin 3.8 g/dL (3.4-5.0); Alkaline Phosphatase 41 U/L (46-116); Anion Gap 5.8 mmol/L (3-11); BUN 14 mg/dL (7-18); Bilirubin, Total 0.4 mg/dL (0.2-1.0); CO2 34.2 mmol/L (21.0-32.0); CREATININE 1.1 mg/dL (0.70-1.30); Calcium 9.2 mg/dL (8.5-10.1); Chloride 103 mmol/L (98-107); Glucose 106 mg/dL (74-106); Potassium 3.6 mmol/L (3.5-5.1); Sodium 143 mmol/L (136-145); TSH 1.67 uIU/mL (0.36-3.74); Total Protein 7.6 g/dL (6.4-8.2)
== END 2021-05-02 03:17 | disposition home or self-care (01) ==
LOC: LBO 03:16
PROVIDERS: PCP Nurse Practitioner Family; Visit Provider Internal Medicine Hematology & Oncology
DX: C81.18 Nodular sclerosis Hodgkin lymphoma, lymph nodes of multiple sites (principal); E06.4 Drug-induced thyroiditis
CPT/HCPCS: 36415; 80053; 85652; 84443; 85025

== ENCOUNTER 2021-05-21 02:08 | Outpatient (CLI) | payer BC, SELFPAY ==
[2021-05-21 11:40] LABS: INR 1.9 (0.9-1.1); Prothrombin Time 19.2 sec (9.3-11.0)
== END 2021-05-21 02:09 | disposition home or self-care (01) ==
LOC: LOS 02:09
PROVIDERS: PCP Nurse Practitioner Family; Visit Provider Nurse Practitioner Family
DX: Z86.711 Personal history of pulmonary embolism (principal)
CPT/HCPCS: 36415; 85610

== ENCOUNTER 2021-06-01 04:15 | Outpatient (CLI) | payer BC, SELFPAY ==
[2021-06-01 13:23] LABS: Prothrombin Time 24.1 sec (9.3-11.0)
[2021-06-01 14:02] LABS: INR 2.4 (0.9-1.1)
== END 2021-06-01 04:16 | disposition home or self-care (01) ==
LOC: LOS 04:15
PROVIDERS: PCP Nurse Practitioner Family; Visit Provider Nurse Practitioner Family
DX: Z86.711 Personal history of pulmonary embolism (principal)
CPT/HCPCS: 36415; 85610

== ENCOUNTER 2021-07-05 04:03 | Outpatient (CLI) | payer BC, SELFPAY ==
[2021-07-05 14:58] LABS: INR 2.1 (0.9-1.1); Prothrombin Time 20.5 sec (9.3-11.0)
== END 2021-07-05 04:04 | disposition home or self-care (01) ==
LOC: LBO 04:03
PROVIDERS: PCP Nurse Practitioner Family; Visit Provider Nurse Practitioner Family
DX: Z86.711 Personal history of pulmonary embolism (principal)
CPT/HCPCS: 36415; 85610

== ENCOUNTER 2021-08-13 01:38 | Outpatient (CLI) | payer BC, SELFPAY ==
[2021-08-13 11:39] LABS: Hemoglobin A1C 5.9 % (<5.7)
[2021-08-13 12:37] LABS: INR 2.4 (0.9-1.1); Prothrombin Time 23.5 sec (9.3-11.0)
== END 2021-08-13 01:39 | disposition home or self-care (01) ==
LOC: LBO 01:38
PROVIDERS: PCP Nurse Practitioner Family; Visit Provider Nurse Practitioner Family
DX: R73.03 Prediabetes (principal); I26.99 Other pulmonary embolism without acute cor pulmonale; Z79.01 Long term (current) use of anticoagulants
CPT/HCPCS: 36415; 83036; 85610

== ENCOUNTER 2021-09-10 01:58 | Outpatient (CLI) | payer BC, SELFPAY ==
[2021-09-10 10:56] LABS: Abs Immature Grans 0.04 10^3/uL (0.0-0.06); Absolute Eosinophil Count 0.22 10^3/uL (0.0-0.7); Absolute Lymphocyte Count 2.31 10^3/uL (1.2-3.4); Absolute Monocyte Count 0.78 10^3/uL (0.1-0.8); Absolute Neutrophil Count 4.43 10^3/uL (1.2-6.7); Basophils % 1.3; Eosinophils % 2.8; HGB 14.9 g/dL (13.5-17.5); Immature Grans % 0.5; Lymphocytes % 29.3; MCH 29.5 pg (27.0-33.0); MCHC 32.4 % (32.0-36.0); MCV 91.1 fL (80-95); MPV 10.2 fL (8.0-11.0); Monocytes % 9.9; Neutrophils % 56.2; Nucleated RBC 0 %; Platelet Count 186 10^3/uL (130-400); RBC 5.05 10^6/uL (4.36-5.78); RDW 13.9 % (11.8-14.1); WBC 7.88 10^3/uL (4.4-10.8)
[2021-09-10 10:59] LABS: ESR 16 mm/hr (0-20)
[2021-09-10 12:36] LABS: ALT 31 U/L (16-63); AST 18 U/L (15-37); Albumin 3.5 g/dL (3.4-5.0); Alkaline Phosphatase 42 U/L (46-116); Anion Gap 7.3 mmol/L (3-11); BUN 19 mg/dL (7-18); Bilirubin, Total 0.3 mg/dL (0.2-1.0); CO2 30.7 mmol/L (21.0-32.0); Calcium 9.2 mg/dL (8.5-10.1); Chloride 102 mmol/L (98-107); Glucose 88 mg/dL (74-106); Potassium 3.8 mmol/L (3.5-5.1); Sodium 140 mmol/L (136-145); TSH 2.04 uIU/mL (0.36-3.74); Total Protein 6.6 g/dL (6.4-8.2)
== END 2021-09-10 01:59 | disposition home or self-care (01) ==
LOC: LBO 01:58
PROVIDERS: PCP Nurse Practitioner Family; Visit Provider Internal Medicine Hematology & Oncology
DX: Z86.711 Personal history of pulmonary embolism (principal); C81.18 Nodular sclerosis Hodgkin lymphoma, lymph nodes of multiple sites; E06.4 Drug-induced thyroiditis
CPT/HCPCS: 36415; 80053; 85652; 84443; 85025; 85610

== ENCOUNTER 2021-10-12 02:19 | Outpatient (CLI) | payer BC, SELFPAY ==
[2021-10-12 14:07] LABS: Prothrombin Time 43.5 sec (9.3-11.0)
[2021-10-12 14:34] LABS: INR 4.5 (0.9-1.1)
== END 2021-10-12 02:20 | disposition home or self-care (01) ==
LOC: LBO 02:19
PROVIDERS: PCP Nurse Practitioner Family; Visit Provider Nurse Practitioner Family
DX: I26.99 Other pulmonary embolism without acute cor pulmonale (principal); Z79.01 Long term (current) use of anticoagulants
CPT/HCPCS: 36415; 85610

== ENCOUNTER 2021-10-22 05:07 | Outpatient (CLI) | payer BC, SELFPAY ==
[2021-10-22 13:42] LABS: INR 2.5 (0.9-1.1); Prothrombin Time 24.2 sec (9.3-11.0)
== END 2021-10-22 05:08 | disposition home or self-care (01) ==
LOC: LBO 05:07
PROVIDERS: PCP Nurse Practitioner Family; Visit Provider Nurse Practitioner Family
DX: I26.99 Other pulmonary embolism without acute cor pulmonale (principal); Z79.01 Long term (current) use of anticoagulants
CPT/HCPCS: 36415; 85610

== ENCOUNTER 2021-10-29 02:41 | Outpatient (CLI) | payer BC, SELFPAY ==
[2021-10-29 12:39] LABS: INR 3.1 (0.9-1.1); Prothrombin Time 30.2 sec (9.3-11.0)
== END 2021-10-29 02:42 | disposition home or self-care (01) ==
LOC: LOS 02:41
PROVIDERS: PCP Nurse Practitioner Family; Visit Provider Nurse Practitioner Family
DX: I26.99 Other pulmonary embolism without acute cor pulmonale (principal); Z79.01 Long term (current) use of anticoagulants
CPT/HCPCS: 36415; 85610

== ENCOUNTER 2021-11-02 03:03 | Outpatient (CLI) | payer BC, SELFPAY ==
[2021-11-02 09:56] LABS: INR 3.5 (0.9-1.1); Prothrombin Time 33.7 sec (9.3-11.0)
== END 2021-11-02 03:04 | disposition home or self-care (01) ==
LOC: LBO 03:03
PROVIDERS: PCP Nurse Practitioner Family; Visit Provider Nurse Practitioner Family
DX: I26.99 Other pulmonary embolism without acute cor pulmonale (principal); Z79.01 Long term (current) use of anticoagulants
CPT/HCPCS: 36415; 85610

== ENCOUNTER 2021-11-09 01:33 | Outpatient (CLI) | payer BC, SELFPAY ==
[2021-11-09 12:45] LABS: INR 2.4 (0.9-1.1)
== END 2021-11-09 01:34 | disposition home or self-care (01) ==
LOC: LOS 01:33
PROVIDERS: PCP Nurse Practitioner Family; Visit Provider Nurse Practitioner Family
DX: I26.99 Other pulmonary embolism without acute cor pulmonale (principal); Z79.01 Long term (current) use of anticoagulants
CPT/HCPCS: 36415; 85610

== ENCOUNTER 2021-12-13 04:14 | Outpatient (CLI) | payer BC, SELFPAY ==
[2021-12-13 13:02] LABS: INR 2.6 (0.9-1.1); Prothrombin Time 24.3 sec (9.3-11.0)
== END 2021-12-13 04:15 | disposition home or self-care (01) ==
PROVIDERS: PCP Nurse Practitioner Family; Visit Provider Nurse Practitioner Family
DX: I26.99 Other pulmonary embolism without acute cor pulmonale (principal); Z79.01 Long term (current) use of anticoagulants
CPT/HCPCS: 36415; 85610

== ENCOUNTER 2022-01-02 02:42 | Outpatient (CLI) | payer BC, SELFPAY ==
[2022-01-02 13:03] LABS: INR 2.5 (0.9-1.1); Prothrombin Time 23.6 sec (9.3-11.0)
== END 2022-01-02 02:43 | disposition home or self-care (01) ==
LOC: LOS 02:42
PROVIDERS: PCP Nurse Practitioner Family; Visit Provider Nurse Practitioner Family
DX: I26.99 Other pulmonary embolism without acute cor pulmonale (principal); Z79.01 Long term (current) use of anticoagulants
CPT/HCPCS: 36415; 85610

== ENCOUNTER 2022-01-10 02:23 | Outpatient (CLI) | payer BC, SELFPAY ==
[2022-01-10 13:35] LABS: ESR 24 mm/hr (0-20)
[2022-01-10 13:36] LABS: Abs Immature Grans 0.02 10^3/uL (0.0-0.06); Absolute Basophil Count 0.07 10^3/uL (0.0-0.2); Absolute Eosinophil Count 0.32 10^3/uL (0.0-0.7); Absolute Lymphocyte Count 2.51 10^3/uL (1.2-3.4); Absolute Monocyte Count 0.97 10^3/uL (0.1-0.8); Absolute Neutrophil Count 4.66 10^3/uL (1.2-6.7); Basophils % 0.8; Eosinophils % 3.7; HCT 46.6 % (40.0-50.0); HGB 15.5 g/dL (13.5-17.5); Immature Grans % 0.2; Lymphocytes % 29.4; MCH 29.9 pg (27.0-33.0); MCHC 33.3 % (32.0-36.0); MCV 90 fL (80-95); MPV 11.3 fL (8.0-11.0); Monocytes % 11.3; Neutrophils % 54.6; Platelet Count 166 10^3/uL (130-400); RBC 5.19 10^6/uL (4.36-5.78); RDW 13.4 % (11.8-14.1); WBC 8.55 10^3/uL (4.4-10.8)
[2022-01-10 14:05] LABS: INR 2.4 (0.9-1.1); Prothrombin Time 22.9 sec (9.3-11.0)
[2022-01-10 14:49] LABS: ALT 31 U/L (16-63); AST 20 U/L (15-37); Albumin 3.6 g/dL (3.4-5.0); Alkaline Phosphatase 34 U/L (46-116); Anion Gap 7.6 mmol/L (3-11); BUN 22 mg/dL (7-18); Bilirubin, Total 0.4 mg/dL (0.2-1.0); CO2 31.4 mmol/L (21.0-32.0); CREATININE 1.1 mg/dL (0.70-1.30); Calcium 9.1 mg/dL (8.5-10.1); Chloride 102 mmol/L (98-107); Glucose 99 mg/dL (74-106); Potassium 3.5 mmol/L (3.5-5.1); Sodium 141 mmol/L (136-145); TSH 1.42 uIU/mL (0.36-3.74); Total Protein 7.1 g/dL (6.4-8.2)
== END 2022-01-10 02:24 | disposition home or self-care (01) ==
LOC: LBO 02:23
PROVIDERS: PCP Nurse Practitioner Family; Visit Provider Internal Medicine Hematology & Oncology
DX: C81.18 Nodular sclerosis Hodgkin lymphoma, lymph nodes of multiple sites (principal); E06.4 Drug-induced thyroiditis; Z79.01 Long term (current) use of anticoagulants; I26.99 Other pulmonary embolism without acute cor pulmonale
CPT/HCPCS: 36415; 80053; 85652; 84443; 85025; 85610

== ENCOUNTER 2022-02-13 02:51 | Outpatient (CLI) | payer BC, SELFPAY ==
[2022-02-13 12:50] LABS: INR 2.2 (0.9-1.1); Prothrombin Time 21.3 sec (9.3-11.0)
== END 2022-02-13 02:52 | disposition home or self-care (01) ==
LOC: LOS 02:51
PROVIDERS: PCP Nurse Practitioner Family; Visit Provider Nurse Practitioner Family
DX: I26.99 Other pulmonary embolism without acute cor pulmonale (principal); Z79.01 Long term (current) use of anticoagulants
CPT/HCPCS: 36415; 85610

== ENCOUNTER 2022-03-26 03:07 | Outpatient (CLI) | payer BC, SELFPAY ==
[2022-03-26 12:47] LABS: INR 2.2 (0.9-1.1); Prothrombin Time 21.2 sec (9.3-11.0)
== END 2022-03-26 03:08 | disposition home or self-care (01) ==
LOC: LOS 03:07
PROVIDERS: PCP Nurse Practitioner Family; Visit Provider Nurse Practitioner Family
DX: I26.99 Other pulmonary embolism without acute cor pulmonale (principal); Z79.01 Long term (current) use of anticoagulants
CPT/HCPCS: 36415; 85610

== ENCOUNTER 2022-05-07 03:30 | Outpatient (CLI) | payer BC, SELFPAY ==
[2022-05-07 11:00] LABS: Abs Immature Grans 0.05 10^3/uL (0.0-0.06); Absolute Eosinophil Count 0.32 10^3/uL (0.0-0.7); Absolute Lymphocyte Count 2.72 10^3/uL (1.2-3.4); Absolute Neutrophil Count 4.74 10^3/uL (1.2-6.7); Basophils % 1.1; Eosinophils % 3.6; HGB 15.3 g/dL (13.5-17.5); Immature Grans % 0.6; Lymphocytes % 30.5; MCH 30.3 pg (27.0-33.0); MCHC 33.3 % (32.0-36.0); MCV 91 fL (80-95); MPV 10.5 fL (8.0-11.0); Monocytes % 11.2; Platelet Count 199 10^3/uL (130-400); RBC 5.05 10^6/uL (4.36-5.78); RDW 13.1 % (11.8-14.1); RDW-SD 43.8 fL; WBC 8.93 10^3/uL (4.4-10.8)
[2022-05-07 11:02] LABS: ESR 11 mm/hr (0-20)
[2022-05-07 11:23] LABS: INR 1.7 (0.9-1.1); Prothrombin Time 16.2 sec (9.3-11.0)
[2022-05-07 11:30] LABS: ALT 29 U/L (16-63); AST 21 U/L (15-37); Albumin 3.6 g/dL (3.4-5.0); Alkaline Phosphatase 44 U/L (46-116); Anion Gap 7.6 mmol/L (3-11); BUN 21 mg/dL (7-18); Bilirubin, Total 0.4 mg/dL (0.2-1.0); CO2 30.4 mmol/L (21.0-32.0); Calcium 9.1 mg/dL (8.5-10.1); Chloride 103 mmol/L (98-107); Estimated GFR 90.56 (mL/min/1.73m2); Glucose 100 mg/dL (74-106); Potassium 3.3 mmol/L (3.5-5.1); Sodium 141 mmol/L (136-145); TSH 2.07 uIU/mL (0.36-3.74); Total Protein 7.3 g/dL (6.4-8.2)
== END 2022-05-07 03:31 | disposition home or self-care (01) ==
LOC: LBO 03:31
PROVIDERS: PCP Nurse Practitioner Family; Visit Provider Nurse Practitioner Adult Health
DX: C81.18 Nodular sclerosis Hodgkin lymphoma, lymph nodes of multiple sites (principal); E06.4 Drug-induced thyroiditis; Z79.01 Long term (current) use of anticoagulants
CPT/HCPCS: 36415; 80053; 85652; 84443; 85025; 85610

== ENCOUNTER 2022-05-15 02:51 | Outpatient (CLI) | payer BC, SELFPAY ==
[2022-05-15 12:37] LABS: INR 1.6 (0.9-1.1); Prothrombin Time 16.1 sec (9.3-11.0)
== END 2022-05-15 02:52 | disposition home or self-care (01) ==
LOC: LOS 02:51
PROVIDERS: PCP Nurse Practitioner Family; Visit Provider Nurse Practitioner Family
DX: Z79.01 Long term (current) use of anticoagulants (principal); I26.99 Other pulmonary embolism without acute cor pulmonale
CPT/HCPCS: 36415; 85610

== ENCOUNTER 2022-06-11 02:57 | Outpatient (CLI) | payer BC, SELFPAY ==
[2022-06-11 12:42] LABS: INR 2.1 (0.9-1.1); Prothrombin Time 20.1 sec (9.3-11.0)
== END 2022-06-11 02:58 | disposition home or self-care (01) ==
LOC: LOS 02:57
PROVIDERS: PCP Nurse Practitioner Family; Visit Provider Nurse Practitioner Family
DX: Z79.01 Long term (current) use of anticoagulants (principal); I26.99 Other pulmonary embolism without acute cor pulmonale
CPT/HCPCS: 36415; 85610

== ENCOUNTER 2022-07-18 04:06 | Outpatient (CLI) | payer BC, SELFPAY ==
[2022-07-18 12:41] LABS: INR 2.3 (0.9-1.1); Prothrombin Time 21.6 sec (9.3-11.0)
== END 2022-07-18 04:07 | disposition home or self-care (01) ==
LOC: LOS 04:07
PROVIDERS: PCP Nurse Practitioner Family; Visit Provider Nurse Practitioner Family
DX: Z79.01 Long term (current) use of anticoagulants (principal); I26.99 Other pulmonary embolism without acute cor pulmonale
CPT/HCPCS: 36415; 85610

== ENCOUNTER 2022-08-20 02:13 | Outpatient (CLI) | payer BC, SELFPAY ==
[2022-08-20 12:27] LABS: INR 2.3 (0.9-1.1); Prothrombin Time 23.3 sec (9.3-11.0)
== END 2022-08-20 02:14 | disposition home or self-care (01) ==
LOC: LOS 02:13
PROVIDERS: PCP Nurse Practitioner Family; Visit Provider Nurse Practitioner Family
DX: Z79.01 Long term (current) use of anticoagulants (principal); Z86.711 Personal history of pulmonary embolism
CPT/HCPCS: 36415; 85610

== ENCOUNTER 2022-09-17 02:35 | Outpatient (CLI) | payer BC, SELFPAY ==
[2022-09-17 13:24] LABS: Anion Gap 5.8 mmol/L (3-11); BUN 16 mg/dL (7-18); CO2 32.2 mmol/L (21.0-32.0); CREATININE 1.1 mg/dL (0.70-1.30); Calcium 9.8 mg/dL (8.5-10.1); Chloride 103 mmol/L (98-107); Estimated GFR 80.77 (mL/min/1.73m2); Glucose 93 mg/dL (74-106); Potassium 3.3 mmol/L (3.5-5.1); Sodium 141 mmol/L (136-145)
[2022-09-17 14:03] LABS: Hemoglobin A1C 5.9 % (<5.7)
[2022-09-17 14:06] LABS: INR 2.2 (0.9-1.1); Prothrombin Time 22.6 sec (9.3-11.0)
[2022-09-17 23:08] LABS: PSA, Screening 0.3 ng/mL (<=3.5)
== END 2022-09-17 02:36 | disposition home or self-care (01) ==
LOC: LOS 02:35
PROVIDERS: PCP Nurse Practitioner Family; Visit Provider Nurse Practitioner Family
DX: R73.01 Impaired fasting glucose (principal); E66.01 Morbid (severe) obesity due to excess calories; Z86.711 Personal history of pulmonary embolism; Z79.01 Long term (current) use of anticoagulants; E78.5 Hyperlipidemia, unspecified; I10 Essential (primary) hypertension
CPT/HCPCS: 36415; 80048; 84153; 83036; 85610

== ENCOUNTER 2022-10-21 01:26 | Outpatient (CLI) | payer BC, SELFPAY ==
[2022-10-21 12:45] LABS: INR 2.1 (0.9-1.1)
== END 2022-10-21 01:27 | disposition home or self-care (01) ==
LOC: LOS 01:26
PROVIDERS: PCP Nurse Practitioner Family; Visit Provider Nurse Practitioner Family
DX: I26.99 Other pulmonary embolism without acute cor pulmonale (principal); Z79.01 Long term (current) use of anticoagulants; Z86.711 Personal history of pulmonary embolism
CPT/HCPCS: 36415; 85610

== ENCOUNTER 2022-11-04 03:11 | Outpatient (CLI) | payer BC, SELFPAY ==
[2022-11-04 12:10] LABS: Abs Immature Grans 0.04 10^3/uL (0.0-0.06); Absolute Basophil Count 0.11 10^3/uL (0.0-0.2); Absolute Eosinophil Count 0.25 10^3/uL (0.0-0.7); Absolute Lymphocyte Count 2.43 10^3/uL (1.2-3.4); Absolute Monocyte Count 0.88 10^3/uL (0.1-0.8); Absolute Neutrophil Count 4.18 10^3/uL (1.2-6.7); Basophils % 1.4; Eosinophils % 3.2; HGB 15.6 g/dL (13.5-17.5); Immature Grans % 0.5; Lymphocytes % 30.8; MCH 30.1 pg (27.0-33.0); MCHC 33.2 % (32.0-36.0); MCV 91 fL (80-95); MPV 10.8 fL (8.0-11.0); Monocytes % 11.2; Neutrophils % 52.9; Platelet Count 229 10^3/uL (130-400); RBC 5.18 10^6/uL (4.36-5.78); RDW 13.2 % (11.8-14.1); RDW-SD 44.5 fL; WBC 7.89 10^3/uL (4.4-10.8)
[2022-11-04 12:11] LABS: ESR 11 mm/hr (0-20)
[2022-11-04 12:25] LABS: ALT 43 U/L (16-63); AST 26 U/L (15-37); Albumin 3.7 g/dL (3.4-5.0); Alkaline Phosphatase 41 U/L (46-116); Anion Gap 6.8 mmol/L (3-11); BUN 18 mg/dL (7-18); Bilirubin, Total 0.4 mg/dL (0.2-1.0); CO2 32.2 mmol/L (21.0-32.0); CREATININE 1.2 mg/dL (0.70-1.30); Calcium 9.2 mg/dL (8.5-10.1); Chloride 102 mmol/L (98-107); Estimated GFR 72.76 (mL/min/1.73m2); Glucose 91 mg/dL (74-106); Potassium 3.4 mmol/L (3.5-5.1); Sodium 141 mmol/L (136-145); Total Protein 7.6 g/dL (6.4-8.2)
== END 2022-11-04 03:12 | disposition home or self-care (01) ==
LOC: LOS 03:11
PROVIDERS: PCP Nurse Practitioner Family; Visit Provider Internal Medicine Hematology & Oncology
DX: C81.18 Nodular sclerosis Hodgkin lymphoma, lymph nodes of multiple sites (principal); E66.01 Morbid (severe) obesity due to excess calories; Z68.44 Body mass index [BMI] 60.0-69.9, adult
CPT/HCPCS: 36415; 80053; 85652; 85025

== ENCOUNTER 2022-12-09 04:33 | Outpatient (CLI) | payer BC, SELFPAY ==
[2022-12-09 12:26] LABS: Potassium 3.6 mmol/L (3.5-5.1)
[2022-12-09 12:32] LABS: INR 1.9 (0.9-1.1); Prothrombin Time 19.3 sec (9.3-11.0)
== END 2022-12-09 04:34 | disposition home or self-care (01) ==
LOC: LOS 04:33
PROVIDERS: PCP Nurse Practitioner Family; Visit Provider Nurse Practitioner Family
DX: E87.6 Hypokalemia (principal); Z86.711 Personal history of pulmonary embolism; Z79.01 Long term (current) use of anticoagulants
CPT/HCPCS: 36415; 84132; 85610

== ENCOUNTER 2022-12-17 03:21 | Outpatient (CLI) | payer BC, SELFPAY ==
[2022-12-17 12:47] LABS: INR 1.9 (0.9-1.1); Prothrombin Time 19.4 sec (9.3-11.0)
== END 2022-12-17 03:22 | disposition home or self-care (01) ==
PROVIDERS: PCP Nurse Practitioner Family; Visit Provider Nurse Practitioner Family
DX: Z86.711 Personal history of pulmonary embolism (principal); Z79.01 Long term (current) use of anticoagulants
CPT/HCPCS: 36415; 85610

== ENCOUNTER 2022-12-26 04:09 | Outpatient (CLI) | payer BC, SELFPAY ==
[2022-12-26 11:21] LABS: Prothrombin Time 19.8 sec (9.3-11.0)
== END 2022-12-26 04:10 | disposition home or self-care (01) ==
LOC: LOS 04:09
PROVIDERS: PCP Nurse Practitioner Family; Visit Provider Nurse Practitioner Family
DX: Z79.01 Long term (current) use of anticoagulants (principal); Z86.711 Personal history of pulmonary embolism
CPT/HCPCS: 36415; 85610

== ENCOUNTER 2023-01-22 03:46 | Outpatient (CLI) | payer BC, SELFPAY ==
[2023-01-22 11:03] LABS: INR 1.8 (0.9-1.1)
== END 2023-01-22 03:47 | disposition home or self-care (01) ==
LOC: LOS 03:46
PROVIDERS: PCP Nurse Practitioner Family; Visit Provider Nurse Practitioner Family
DX: Z79.01 Long term (current) use of anticoagulants (principal); Z86.711 Personal history of pulmonary embolism
CPT/HCPCS: 36415; 85610

== ENCOUNTER 2023-02-04 03:57 | Outpatient (CLI) | payer BC, SELFPAY ==
[2023-02-04 12:24] LABS: INR 1.9 (0.9-1.1); Prothrombin Time 19.3 sec (9.3-11.0)
== END 2023-02-04 03:58 | disposition home or self-care (01) ==
LOC: LOS 03:57
PROVIDERS: PCP Nurse Practitioner Family; Visit Provider Nurse Practitioner Family
DX: I26.99 Other pulmonary embolism without acute cor pulmonale (principal); Z86.711 Personal history of pulmonary embolism; Z79.01 Long term (current) use of anticoagulants
CPT/HCPCS: 36415; 85610

== ENCOUNTER 2023-02-20 04:17 | Outpatient (CLI) | payer BC, SELFPAY ==
[2023-02-20 13:04] LABS: INR 1.8 (0.9-1.1); Prothrombin Time 18.7 sec (9.3-11.0)
== END 2023-02-20 04:18 | disposition home or self-care (01) ==
LOC: LOS 04:17
PROVIDERS: PCP Nurse Practitioner Family; Visit Provider Nurse Practitioner Family
DX: I26.99 Other pulmonary embolism without acute cor pulmonale (principal); Z79.01 Long term (current) use of anticoagulants
CPT/HCPCS: 36415; 85610

== ENCOUNTER 2023-03-13 02:25 | Outpatient (CLI) | payer BC, SELFPAY ==
[2023-03-13 12:27] LABS: INR 2.9 (0.9-1.1); Prothrombin Time 29.1 sec (9.3-11.0)
== END 2023-03-13 02:26 | disposition home or self-care (01) ==
LOC: LOS 02:26
PROVIDERS: PCP Nurse Practitioner Family; Visit Provider Nurse Practitioner Family
DX: I26.99 Other pulmonary embolism without acute cor pulmonale (principal); Z79.01 Long term (current) use of anticoagulants; Z86.711 Personal history of pulmonary embolism
CPT/HCPCS: 36415; 85610

== ENCOUNTER 2023-04-02 03:25 | Outpatient (CLI) | payer BC, SELFPAY ==
[2023-04-02 10:58] LABS: INR 2.8 (0.9-1.1); Prothrombin Time 28.5 sec (9.3-11.0)
== END 2023-04-02 03:26 | disposition home or self-care (01) ==
LOC: LOS 03:27
PROVIDERS: PCP Nurse Practitioner Family; Visit Provider Nurse Practitioner Family
DX: I26.99 Other pulmonary embolism without acute cor pulmonale (principal); Z86.711 Personal history of pulmonary embolism; Z79.01 Long term (current) use of anticoagulants
CPT/HCPCS: 36415; 85610

== ENCOUNTER 2023-05-07 01:17 | Outpatient (CLI) | payer BC, SELFPAY ==
[2023-05-07 13:05] LABS: INR 3.7 (0.9-1.1); Prothrombin Time 33.5 sec (9.1-11.1)
== END 2023-05-07 01:18 | disposition home or self-care (01) ==
LOC: LOS 01:18
PROVIDERS: PCP Nurse Practitioner Family; Visit Provider Nurse Practitioner Family
DX: Z79.01 Long term (current) use of anticoagulants (principal); Z86.711 Personal history of pulmonary embolism
CPT/HCPCS: 36415; 85610

== ENCOUNTER 2023-05-19 04:43 | Outpatient (CLI) | payer BC, SELFPAY ==
[2023-05-19 12:47] LABS: INR 2.6 (0.9-1.1); Prothrombin Time 24.2 sec (9.1-11.1)
== END 2023-05-19 04:44 | disposition home or self-care (01) ==
LOC: LOS 04:43
PROVIDERS: PCP Nurse Practitioner Family; Visit Provider Nurse Practitioner Family
DX: Z86.711 Personal history of pulmonary embolism (principal); Z79.01 Long term (current) use of anticoagulants
CPT/HCPCS: 36415; 85610

== ENCOUNTER 2023-05-28 03:17 | Outpatient (CLI) | payer BC, SELFPAY ==
[2023-05-28 12:37] LABS: INR 2.4 (0.9-1.1); Prothrombin Time 22.1 sec (9.1-11.1)
== END 2023-05-28 03:18 | disposition home or self-care (01) ==
LOC: LOS 03:17
PROVIDERS: PCP Nurse Practitioner Family; Visit Provider Nurse Practitioner Family
DX: Z86.711 Personal history of pulmonary embolism (principal); E66.01 Morbid (severe) obesity due to excess calories; Z79.01 Long term (current) use of anticoagulants; I48.91 Unspecified atrial fibrillation
CPT/HCPCS: 36415; 85610

== ENCOUNTER 2023-06-18 04:22 | Outpatient (CLI) | payer BC, SELFPAY ==
[2023-06-18 12:39] LABS: INR 3.2 (0.9-1.1); Prothrombin Time 29.3 sec (9.1-11.1)
== END 2023-06-18 04:23 | disposition home or self-care (01) ==
PROVIDERS: PCP Nurse Practitioner Family; Visit Provider Nurse Practitioner Family
DX: I10 Essential (primary) hypertension (principal); Z86.711 Personal history of pulmonary embolism; Z79.01 Long term (current) use of anticoagulants
CPT/HCPCS: 36415; 85610

== ENCOUNTER 2023-06-27 03:42 | Outpatient (CLI) | payer BC, SELFPAY ==
[2023-06-27 12:26] LABS: INR 3.4 (0.9-1.1); Prothrombin Time 30.6 sec (9.1-11.1)
== END 2023-06-27 03:43 | disposition home or self-care (01) ==
PROVIDERS: PCP Nurse Practitioner Family; Visit Provider Nurse Practitioner Family
DX: I26.99 Other pulmonary embolism without acute cor pulmonale (principal); Z86.711 Personal history of pulmonary embolism; Z79.01 Long term (current) use of anticoagulants
CPT/HCPCS: 36415; 85610

== ENCOUNTER 2023-07-09 04:41 | Outpatient (CLI) | payer BC, SELFPAY ==
[2023-07-09 12:47] LABS: Prothrombin Time 19.3 sec (9.1-11.1)
== END 2023-07-09 04:42 | disposition home or self-care (01) ==
LOC: LOS 04:46
PROVIDERS: PCP Nurse Practitioner Family; Visit Provider Nurse Practitioner Family
DX: Z86.711 Personal history of pulmonary embolism (principal)
CPT/HCPCS: 36415; 85610

== ENCOUNTER 2023-08-11 05:07 | Outpatient (CLI) | payer BC, SELFPAY ==
[2023-08-11 12:30] LABS: INR 2.5 (0.9-1.1); Prothrombin Time 23.2 sec (9.1-11.1)
== END 2023-08-11 05:08 | disposition home or self-care (01) ==
LOC: LOS 05:17
PROVIDERS: PCP Nurse Practitioner Family; Visit Provider Nurse Practitioner Family
DX: I48.91 Unspecified atrial fibrillation (principal); Z79.01 Long term (current) use of anticoagulants
CPT/HCPCS: 36415; 85610

== ENCOUNTER 2023-09-16 04:34 | Outpatient (CLI) | payer BC, SELFPAY ==
[2023-09-16 12:35] LABS: Prothrombin Time 19.2 sec (9.1-11.1)
== END 2023-09-16 04:35 | disposition home or self-care (01) ==
LOC: LOS 04:34
PROVIDERS: PCP Nurse Practitioner Family; Visit Provider Nurse Practitioner Family
DX: Z86.711 Personal history of pulmonary embolism (principal)
CPT/HCPCS: 36415; 85610

== ENCOUNTER 2023-10-23 05:49 | Outpatient (CLI) | payer BC, SELFPAY ==
[2023-10-23 12:25] LABS: ESR 15 mm/hr (0-20)
[2023-10-23 12:27] LABS: Abs Immature Grans 0.04 10^3/uL (0.0-0.06); Absolute Basophil Count 0.12 10^3/uL (0.0-0.2); Absolute Eosinophil Count 0.27 10^3/uL (0.0-0.7); Absolute Lymphocyte Count 2.55 10^3/uL (1.2-3.4); Absolute Neutrophil Count 4.69 10^3/uL (1.2-6.7); Basophils % 1.4; Eosinophils % 3.2; HGB 16.7 g/dL (13.5-17.5); Immature Grans % 0.5; Lymphocytes % 30.1; MCH 30.1 pg (27.0-33.0); MCHC 33.4 % (32.0-36.0); MCV 90 fL (80-95); MPV 10.8 fL (8.0-11.0); Monocytes % 9.4; Neutrophils % 55.4; Platelet Count 238 10^3/uL (130-400); RBC 5.55 10^6/uL (4.36-5.78); RDW 13.1 % (11.8-14.1); RDW-SD 43.8 fL; WBC 8.47 10^3/uL (4.4-10.8)
[2023-10-23 12:34] LABS: Prothrombin Time 22.8 sec (9.1-11.1)
[2023-10-23 12:35] LABS: INR 2.4 (0.9-1.1)
[2023-10-23 12:39] LABS: ALT 36 U/L (16-63); AST 20 U/L (15-37); Albumin 3.6 g/dL (3.4-5.0); Alkaline Phosphatase 47 U/L (46-116); Anion Gap 9.3 mmol/L (3-11); BUN 17 mg/dL (7-18); Bilirubin, Total 0.5 mg/dL (0.2-1.0); CO2 30.7 mmol/L (21.0-32.0); CREATININE 1.1 mg/dL (0.70-1.30); Calcium 9.2 mg/dL (8.5-10.1); Chloride 102 mmol/L (98-107); Estimated GFR 80.27 (mL/min/1.73m2); Glucose 106 mg/dL (74-106); Potassium 3.4 mmol/L (3.5-5.1); Sodium 142 mmol/L (136-145); Total Protein 7.4 g/dL (6.4-8.2)
[2023-10-23 22:01] LABS: Lab Add On Test DONE
[2023-10-23 22:35] LABS: Hemoglobin A1C 5.5 % (<5.7)
[2023-10-23 22:47] LABS: Calculated LDL 139 mg/dL (<100); Cholesterol 206 mg/dL (<200); HDL Cholesterol 49 mg/dL (40-60); Triglyceride 94 mg/dL (<150)
== END 2023-10-23 05:50 | disposition home or self-care (01) ==
LOC: LOS 05:49
PROVIDERS: Internal Medicine Hematology & Oncology; PCP Nurse Practitioner Family; Visit Provider Nurse Practitioner Family
DX: E78.5 Hyperlipidemia, unspecified (principal); I10 Essential (primary) hypertension
CPT/HCPCS: 36415; 80053; 80061; 85652; 83036; 85025; 85610

== ENCOUNTER 2023-12-01 04:56 | Outpatient (CLI) | payer BC, SELFPAY ==
[2023-12-01 12:55] LABS: Prothrombin Time 21.1 sec (9.1-11.1)
[2023-12-01 12:56] LABS: INR 2.2 (0.9-1.1)
== END 2023-12-01 04:57 | disposition home or self-care (01) ==
LOC: LOS 04:57
PROVIDERS: PCP Nurse Practitioner Family; Visit Provider Nurse Practitioner Family
DX: Z86.711 Personal history of pulmonary embolism (principal); Z13.6 Encounter for screening for cardiovascular disorders
CPT/HCPCS: 36415; 85610

== ENCOUNTER 2023-12-29 04:35 | Outpatient (CLI) | payer BC, SELFPAY ==
[2023-12-29 12:32] LABS: Prothrombin Time 18.7 sec (9.1-11.1)
[2023-12-29 12:48] LABS: TSH (W/Ref FT4) 1.26 uIU/mL (0.36-3.74)
[2023-12-29 18:47] LABS: PSA, Screening 0.4 ng/mL (<=3.5)
== END 2023-12-29 04:36 | disposition home or self-care (01) ==
LOC: LOS 04:36
PROVIDERS: PCP Nurse Practitioner Family; Visit Provider Nurse Practitioner Family
DX: Z79.01 Long term (current) use of anticoagulants (principal); Z86.711 Personal history of pulmonary embolism; Z00.00 Encounter for general adult medical examination without abnormal findings; C81.01 Nodular lymphocyte predominant Hodgkin lymphoma, lymph nodes of head, face, and neck; Z12.5 Encounter for screening for malignant neoplasm of prostate
CPT/HCPCS: 36415; 84153; 84443; 85610

== ENCOUNTER → 2024-01-16 00:10 | Outpatient (CLI) | payer BC, SELFPAY ==
--- NOTE | 2024-01-16 14:50 | DI.US_ITS ---
APPROVED REPORT EXAM: Comprehensive 2D, Doppler, and color-flow Echocardiogram Patient Location: Out-Patient Engine Setter: Kristy Louis RDCS (AE) Indications: Reassess aortic aneurysm Other Information Study Quality: Fair. Technically limited study due to body habitus. Conclusion Mild concentric left ventricle hypertrophy. Ejection fraction is 57%. Wall motion is grossly normal Normal right ventricular size and function Both atria are normal in size Aortic valve is mildly sclerotic and trileaflet without stenosis or regurgitation Mildly dilated ascending aorta measuring 4.0 cm Wall motion Left Ventricle The left ventricle is normal size. The overall left ventricular systolic function appears normal. Mil d concentric left ventricular hypertrophy. Regional wall motion is not well visualized but grossly no rmal. There is no ventricular septal defect visualized. LVEF is 57%. Right Ventricle Right ventricle is grossly normal in size. Right ventricular systolic function is grossly normal. Atria The left atrium size is normal. The right atrium size is normal. The interatrial septum is intact wit h no evidence for an atrial septal defect. Aortic Valve The aortic valve is mildly sclerotic There is no aortic valvular stenosis. No aortic regurgitation is present. Mitral Valve The mitral valve is normal in structure. No evidence of mitral valve stenosis. Trace mitral regurgita tion. Tricuspid Valve The tricuspid valve is normal in structure. There is no tricuspid valve stenosis. Trace tricuspid reg urgitation. Unable to assess PA pressure. Pulmonic Valve The pulmonary valve is normal in structure. There is no pulmonic valvular stenosis. Trace pulmonic re gurgitation. Great Vessels The aortic root is normal in size. The ascending aorta is mildly dilated. Aortic arch is not well vis ualized. IVC is normal in size and collapses >50% with inspiration. Pericardium There is no pericardial effusion. 2D Dimensions IVSD d PLAX 1.36 cm M: 0.6-1.2 Ao Root d 3.47 cm M: 3.1 - 3.7 LVPW d PLAX 1.37 cm M: 0.6 - 1.2 Ao Asc Diam d 4.13 cm M: 2.6 - 3.4 LVID d PLAX 4.73 cm M: 4.2 - 5.8 LVDs 3.20 cm M: 2.5 - 4.0 LV EF Teichholz 60.5 % FS 32.27 % LV EDV (Teich) 103.7 mL LV ESV (Teich) 41.0 mL M-Mode TAPSE 1.92 cm (M/F) >1.7 Auto EF LV EDV A4C 158.2 mL LV EDV A2C 168.3 mL LV EDV BP 169.4 mL LV ESV A4C 69.7 mL LV ESV A2C 73.2 mL LV ESV BP 73.9 mL LVEF(%) A4C 55.9 % LVEF(%) A2C 56.5 % LVEF(%) BP 56.3 % LV SV A4C 88.4 ml LV SV A2C 95.2 ml LV SV BP 95.4 ml LV CO A4C 6.9 L/min LV CO A2C 7.4 L/min LV CO BP 7.2 L/min HR A4C 78.40 BPM HR A2C 78.09 BPM LV EDV Index (BP) LA Volume LA Length A4C 5.9 cm LA Length A2C 5.9 cm LA Area A4C s 23.51 cm2 LA Area A2C s 18.73 cm2 LA Vol A4C A-L 80.07 mL LA Vol A2C A-L 50.76 mL LA Vol Biplane A-L 63.8 mL LA Vol/BSA A4C A-L LA Vol/BSA A2C A-L LA Vol/BSA BP A-L 23.0 mL/m2 LA Vol A4C MOD 75.0 mL LA Vol A2C MOD 48.4 mL LA Vol BP MOD 60.2 mL RA Volume RA Area A4C 13.5 cm2 RA ESV A4C (A-L) 32.8mL RA Vol/BSA A4C A-L RA Length A4C 4.7 cm RA ESV A4C (MOD) 31.5mL LV Diastology MV E' medial 0.072 (>0.07 m/s) MV E Vmax 0.57 (0.4-1.3 m/s) MV E/E' MED 7.95 (<14) MV A Vmax 0.65 (0.4-1.3 m/s) MV E' lateral 0.066 (>0.1 m/s) E/A Ratio 0.9 MV E/E' LAT 8.59 (<14) MV E' Average 0.069 m/s MV E/E'(average) 8.25 Aortic Valve AoV Vmax 1.61 m/s LVOT Vmax 0.97 m/s AoV Peak Grad 10.4 mmHg LVOT Peak Grad 3.7 mmHg AoV Area (Vmax) 2.04 cm2 LVOT VTI 0.188 m AoV VTI 0.318 m LVOT Mean Grad 2.5 mmHg AoV Mean Himanshu. 1.13 m/s LVOT SV 63.93 mL AoV Mean Grad 6.0 mmHg LVOT Diam s 2.05 cm AoV Area (VTI) 2.01 cm2 Velocity Ratio 0.60 Mitral Valve MV DT 233 (160-240 msec) MV Vmax TIPS 0.63 m/s MV Mean Grad 0.9 (<2mmHg) MV VTI 0.175 m Pulmonary Valve PV Vmax 0.96 (0.5-1.5 m/s) RVOT Vmax 0.95 m/s PV Peak Grad 3.7 mmHg RVOT Peak Gr. 3.6 mmHg PV Mean Himanshu 0.79 m/s RVOT VTI 0.181 m PV Mean Grad 2.5 mmHg RVOT Mean Gr. 1.9 mmHg Tricuspid Valve RA Pressure 3.00 mmHg TV S' 0.13 m/s
== END ==
PROVIDERS: PCP Nurse Practitioner Family; Visit Provider Nurse Practitioner Family
DX: I71.20 Thoracic aortic aneurysm, without rupture, unspecified (principal)
CPT/HCPCS: 93306

== ENCOUNTER 2024-02-05 01:48 | Outpatient (CLI) | payer BC, SELFPAY ==
[2024-02-05 12:33] LABS: INR 1.8 (0.9-1.1); Prothrombin Time 16.9 sec (9.1-11.1)
[2024-02-05 22:07] LABS: Hepatitis C Ab w Rflx HCV PCR Negative (Negative)
[2024-02-05 22:25] LABS: HBs Antibody, Quant 4.1 mIU/mL (See Note); Hep B Surface Ab Negative (See Note); Hepatitis B Core Antibody Negative (Negative); Hepatitis B Surface Antigen Negative (Negative)
[2024-02-05 22:27] LABS: HIV-1/2 Ag & Ab Screen Negative (Negative)
== END 2024-02-05 01:49 | disposition home or self-care (01) ==
LOC: LOS 01:48
PROVIDERS: PCP Nurse Practitioner Family; Visit Provider Nurse Practitioner Family
DX: Z11.59 Encounter for screening for other viral diseases (principal); Z86.711 Personal history of pulmonary embolism; Z79.01 Long term (current) use of anticoagulants; Z11.4 Encounter for screening for human immunodeficiency virus [HIV]
CPT/HCPCS: 36415; 86704; 86706; 86803; 87340; 87389; 85610

== ENCOUNTER 2024-02-19 03:41 | Outpatient (CLI) | payer BC, SELFPAY ==
[2024-02-19 12:56] LABS: INR 2.8 (0.9-1.1); Prothrombin Time 25.4 sec (9.1-11.1)
== END 2024-02-19 03:42 | disposition home or self-care (01) ==
LOC: LOS 03:41
PROVIDERS: PCP Nurse Practitioner Family; Visit Provider Nurse Practitioner Family
DX: Z86.711 Personal history of pulmonary embolism (principal); Z79.01 Long term (current) use of anticoagulants
CPT/HCPCS: 36415; 85610

== ENCOUNTER 2024-03-02 04:59 | Outpatient (CLI) | payer BC, SELFPAY ==
[2024-03-02 12:26] LABS: INR 2.5 (0.9-1.1); Prothrombin Time 23.3 sec (9.1-11.1)
== END 2024-03-02 05:00 | disposition home or self-care (01) ==
PROVIDERS: PCP Nurse Practitioner Family; Visit Provider Nurse Practitioner Family
DX: Z86.711 Personal history of pulmonary embolism (principal); Z79.01 Long term (current) use of anticoagulants
CPT/HCPCS: 36415; 85610

== ENCOUNTER 2024-03-26 02:49 | Outpatient (CLI) | payer BC, SELFPAY ==
[2024-03-26 10:39] LABS: INR 3.5 (0.9-1.1); Prothrombin Time 31.3 sec (9.1-11.1)
== END 2024-03-26 02:50 | disposition home or self-care (01) ==
LOC: LOS 02:50
PROVIDERS: PCP Nurse Practitioner Family; Visit Provider Nurse Practitioner Family
DX: Z86.711 Personal history of pulmonary embolism (principal)
CPT/HCPCS: 36415; 85610

== ENCOUNTER 2024-04-02 02:03 | Outpatient (CLI) | payer BC, SELFPAY ==
[2024-04-02 12:19] LABS: INR 2.8 (0.9-1.1); Prothrombin Time 25.7 sec (9.1-11.1)
== END 2024-04-02 02:04 | disposition home or self-care (01) ==
LOC: LOS 02:05
PROVIDERS: PCP Nurse Practitioner Family; Visit Provider Nurse Practitioner Family
DX: Z86.711 Personal history of pulmonary embolism (principal); Z79.01 Long term (current) use of anticoagulants
CPT/HCPCS: 36415; 85610

== ENCOUNTER 2024-04-22 03:50 | Outpatient (CLI) | payer BC, SELFPAY ==
[2024-04-22 13:05] LABS: INR 2.2 (0.9-1.1)
== END 2024-04-22 03:51 | disposition home or self-care (01) ==
LOC: LOS 03:50
PROVIDERS: PCP Nurse Practitioner Family; Visit Provider Nurse Practitioner Family
DX: Z86.711 Personal history of pulmonary embolism (principal)
CPT/HCPCS: 36415; 85610

== ENCOUNTER 2024-05-25 02:13 | Outpatient (CLI) | payer BC, SELFPAY ==
[2024-05-25 12:45] LABS: INR 2.3 (0.9-1.1); Prothrombin Time 21.2 sec (9.1-11.1)
== END 2024-05-25 02:14 | disposition home or self-care (01) ==
LOC: LOS 02:13
PROVIDERS: PCP Nurse Practitioner Family; Visit Provider Nurse Practitioner Family
DX: Z86.711 Personal history of pulmonary embolism (principal); Z79.01 Long term (current) use of anticoagulants
CPT/HCPCS: 36415; 85610

== ENCOUNTER 2024-06-28 03:08 | Outpatient (CLI) | payer BC, SELFPAY ==
[2024-06-28 12:40] LABS: INR 2.5 (0.9-1.1); Prothrombin Time 23.4 sec (9.1-11.1)
== END 2024-06-28 03:09 | disposition home or self-care (01) ==
LOC: LOS 03:08
PROVIDERS: PCP Nurse Practitioner Family; Visit Provider Nurse Practitioner Family
DX: Z86.711 Personal history of pulmonary embolism (principal); Z79.01 Long term (current) use of anticoagulants
CPT/HCPCS: 36415; 85610

== ENCOUNTER 2024-08-02 02:21 | Outpatient (CLI) | payer BC, SELFPAY ==
[2024-08-02 09:51] LABS: HCT 49.2 % (40.0-50.0); HGB 16.7 g/dL (13.5-17.5); MCH 30.1 pg (27.0-33.0); MCHC 33.9 % (32.0-36.0); MCV 89 fL (80-95); Platelet Count 222 10^3/uL (130-400); RBC 5.54 10^6/uL (4.36-5.78); RDW-SD 42.4 fL; WBC 9.31 10^3/uL (4.4-10.8)
[2024-08-02 10:02] LABS: INR 2.7 (0.9-1.1); Prothrombin Time 25.1 sec (9.1-11.1)
[2024-08-02 10:20] LABS: Anion Gap 8.3 mmol/L (3-11); BUN 20 mg/dL (7-18); CO2 30.7 mmol/L (21.0-32.0); CREATININE 1.2 mg/dL (0.70-1.30); Calcium 9.7 mg/dL (8.5-10.1); Calculated LDL 111 mg/dL (<100); Chloride 102 mmol/L (98-107); Cholesterol 191 mg/dL (<200); Estimated GFR 71.86 (mL/min/1.73m2); Glucose 100 mg/dL (74-106); HDL Cholesterol 59 mg/dL (40-60); Potassium 3.4 mmol/L (3.5-5.1); Sodium 141 mmol/L (136-145); TSH (W/Ref FT4) 2.39 uIU/mL (0.36-3.74); Triglyceride 109 mg/dL (<150)
== END 2024-08-02 02:22 | disposition home or self-care (01) ==
LOC: LOS 02:21
PROVIDERS: PCP Nurse Practitioner Family; Visit Provider Nurse Practitioner Family
DX: Z86.711 Personal history of pulmonary embolism (principal); Z79.01 Long term (current) use of anticoagulants; E78.5 Hyperlipidemia, unspecified; Z85.71 Personal history of Hodgkin lymphoma; I10 Essential (primary) hypertension
CPT/HCPCS: 36415; 80048; 80061; 85027; 84443; 85610

== ENCOUNTER 2024-09-02 03:07 | Outpatient (CLI) | payer BC, SELFPAY ==
[2024-09-02 12:41] LABS: INR 2.5 (0.9-1.1); Prothrombin Time 23.4 sec (9.1-11.1)
== END 2024-09-02 03:08 | disposition home or self-care (01) ==
LOC: LOS 03:07
PROVIDERS: PCP Nurse Practitioner Family; Visit Provider Nurse Practitioner Family
DX: Z86.711 Personal history of pulmonary embolism (principal); Z79.01 Long term (current) use of anticoagulants
CPT/HCPCS: 36415; 85610

== ENCOUNTER 2024-09-30 03:36 | Outpatient (CLI) | payer BC, SELFPAY ==
[2024-09-30 12:51] LABS: INR 3.4 (0.9-1.1); Prothrombin Time 31.1 sec (9.1-11.1)
== END 2024-09-30 03:37 | disposition home or self-care (01) ==
PROVIDERS: PCP Nurse Practitioner Family; Visit Provider Nurse Practitioner Family
DX: Z86.711 Personal history of pulmonary embolism (principal); Z79.01 Long term (current) use of anticoagulants
CPT/HCPCS: 36415; 85610

== ENCOUNTER 2024-10-11 03:15 | Outpatient (CLI) | payer BC, SELFPAY ==
[2024-10-11 12:15] LABS: Abs Immature Grans 0.04 10^3/uL (0.0-0.06); Absolute Basophil Count 0.13 10^3/uL (0.0-0.2); Absolute Eosinophil Count 0.28 10^3/uL (0.0-0.7); Absolute Lymphocyte Count 2.59 10^3/uL (1.2-3.4); Absolute Monocyte Count 0.85 10^3/uL (0.1-0.8); Absolute Neutrophil Count 5.14 10^3/uL (1.2-6.7); Basophils % 1.4 %; Eosinophils % 3.1 %; HCT 46.6 % (40.0-50.0); HGB 15.6 g/dL (13.5-17.5); Immature Grans % 0.4 %; Lymphocytes % 28.7 %; MCH 30.1 pg (27.0-33.0); MCHC 33.5 % (32.0-36.0); MCV 90 fL (80-95); MPV 10.4 fL (8.0-11.0); Monocytes % 9.4 %; Platelet Count 233 10^3/uL (130-400); RBC 5.19 10^6/uL (4.36-5.78); RDW 13.4 % (11.8-14.1); RDW-SD 43.8 fL; WBC 9.03 10^3/uL (4.4-10.8)
[2024-10-11 12:18] LABS: ESR 12 mm/hr (0-20)
[2024-10-11 12:29] LABS: INR 2.2 (0.9-1.1); Prothrombin Time 21.1 sec (9.1-11.1)
[2024-10-11 12:38] LABS: ALT 30 U/L (16-63); AST 18 U/L (15-37); Albumin 3.4 g/dL (3.4-5.0); Alkaline Phosphatase 44 U/L (46-116); Anion Gap 7.4 mmol/L (3-11); BUN 19 mg/dL (7-18); Bilirubin, Total 0.3 mg/dL (0.2-1.0); CO2 31.6 mmol/L (21.0-32.0); Calcium 9.2 mg/dL (8.5-10.1); Chloride 102 mmol/L (98-107); Estimated GFR 89.44 (mL/min/1.73m2); Glucose 87 mg/dL (74-106); Potassium 3.8 mmol/L (3.5-5.1); Sodium 141 mmol/L (136-145); TSH 2.11 uIU/mL (0.36-3.74)
== END 2024-10-11 03:16 | disposition home or self-care (01) ==
LOC: LOS 03:15
PROVIDERS: Nurse Practitioner Adult Health; PCP Nurse Practitioner Family; Visit Provider Nurse Practitioner Family
DX: C81.18 Nodular sclerosis Hodgkin lymphoma, lymph nodes of multiple sites (principal); T66.XXXS Radiation sickness, unspecified, sequela
CPT/HCPCS: 36415; 80053; 85652; 84443; 85025; 85610

== ENCOUNTER 2024-10-26 00:33 | Outpatient (CLI) | payer BC, SELFPAY ==
[2024-10-26 13:17] LABS: INR 2.2 (0.9-1.1); Prothrombin Time 21.2 sec (9.1-11.1)
== END 2024-10-26 00:34 | disposition home or self-care (01) ==
LOC: LOS 00:33
PROVIDERS: PCP Nurse Practitioner Family; Visit Provider Nurse Practitioner Family
DX: Z86.711 Personal history of pulmonary embolism (principal); Z79.01 Long term (current) use of anticoagulants
CPT/HCPCS: 36415; 85610

== ENCOUNTER 2024-11-30 02:21 | Outpatient (CLI) | payer BC, SELFPAY ==
[2024-11-30 12:26] LABS: INR 2.2 (0.9-1.1); Prothrombin Time 20.7 sec (9.1-11.1)
== END 2024-11-30 02:22 | disposition home or self-care (01) ==
LOC: LOS 02:21
PROVIDERS: PCP Nurse Practitioner Family; Visit Provider Nurse Practitioner Family
DX: Z86.711 Personal history of pulmonary embolism (principal); Z79.01 Long term (current) use of anticoagulants
CPT/HCPCS: 36415; 85610

== ENCOUNTER 2025-01-04 03:00 | Outpatient (CLI) | payer BC, SELFPAY ==
[2025-01-04 10:52] LABS: INR 2.4 (0.9-1.1); Prothrombin Time 22.6 sec (9.1-11.1)
== END 2025-01-04 03:01 | disposition home or self-care (01) ==
LOC: LOS 03:00
PROVIDERS: PCP Nurse Practitioner Family; Visit Provider Nurse Practitioner Family
DX: Z86.711 Personal history of pulmonary embolism (principal)
CPT/HCPCS: 36415; 85610

== ENCOUNTER 2025-02-08 03:28 | Outpatient (CLI) | payer BC, SELFPAY ==
[2025-02-08 12:50] LABS: INR 2.5 (0.9-1.1); Prothrombin Time 23.7 sec (9.1-11.1)
== END 2025-02-08 03:29 | disposition home or self-care (01) ==
LOC: LOS 03:28
PROVIDERS: PCP Nurse Practitioner Family; Visit Provider Nurse Practitioner Family
DX: Z86.711 Personal history of pulmonary embolism (principal)
CPT/HCPCS: 36415; 85610

== ENCOUNTER 2025-02-10 12:20 | Observation (INO) | payer BC, SELFPAY ==
[2025-02-10] VITALS (32 sets, daily range): BP systolic 87–147; BP diastolic 59–95; PULSE 67–110; RESP 12–29; TEMP 36.4–37.1; O2SAT 91–100
--- NOTE | 2025-02-10 12:15 | RT.EKG_ITS ---
APPROVED REPORT Exam: Resting ECG Reason for Exam: SOB Patient Location: E HR:108 bpm ECG Measurements Heart Rate 108 AXIS MS 172 P 42 QRSd 122 QRS -42 QT 354 T 66 QTc 475 Conclusion Sinus tachycardia...rate> 99 RBBB and LAFB...QRSd >120mS, axis(-40,240)
--- NOTE | 2025-02-10 12:30 | DI.CT_ITS ---
Exam(s) CT THORAX ABD/PEL CTA EXAM: CT THORAX ABD/PEL CTA CLINICAL HISTORY: CP; SOB; radiates through back. TECHNIQUE: Imaging Protocol: Axial CT angiography was performed with multi- slice acquisition and multi-planar and/or 3D reconstructions. CONTRAST MATERIAL: Intravenous: Omnipaque 350 Contrast volume:100 mL Oral: / no COMPARISON: CT CT NECK CHEST W from 12/18/2020 FINDINGS: CHEST: Pulmonary Arteries: Suboptimally opacified. No evidence of filling defect to suggest pulmonary emboli. Tracheobronchial tree: Patent where visualized. Mediastinum and Martha: No dominant adenopathy or fluid collection. Pulmonary parenchyma: Mildly limited evaluation due to respiratory motion. No consolidation or dominant measurable mass. No architectural distortion. Pleura: No effusion or pneumothorax. Heart: The heart is not dilated. No coronary artery calcifications are seen. No calcifications are visible at the aortic valve. Aorta: The ascending aorta is dilated to 4.5 cm, compared with 2.6 cm the descending aorta. Tho no evidence of dissection. No significant atherosclerotic calcifications. Bones: Prominent osteophytes in the thoracic spine. Tubes, Catheters, and Lines: None Soft tissues: Mild bilateral gynecomastia. ABDOMEN AND PELVIS: Abdomen: Celiac axis/mesenteric arteries: No evidence of occlusion or significant stenosis. Renal Arteries: No evidence of occlusion or significant stenosis. There is a single renal artery perfusing each kidney. Aorta: Minimal atherosclerotic calcification. No evidence of occlusion or significant stenosis. No aneurysm or dissection. Pelvis: Iliac Arteries: Minimal atherosclerotic calcification. No evidence of occlusion or significant stenosis. Common Femoral Arteries: No evidence of occlusion or significant stenosis. ABDOMEN: Liver: Hepatic steatosis. No measurable mass. Portal, Superior Mesenteric, and Splenic Veins: Unremarkable. Gallbladder and Biliary Tract: No radiodense calculus or dilation. Pancreas: Normal density, no abnormal calcifications or inflammatory process. Spleen: Normal. Adrenals: No masses seen. Kidneys: Normal size, contour and axis. No radiodense stones or obstructive uropathy. No masses seen. Bowel: No obstruction or bowel wall thickening. Appendix is unremarkable. Normal quantity of stool. Peritoneal Cavity: No ascites, collection or mesenteric inflammatory response. Lymph Nodes: Within normal limits. Bones: Advanced degenerative disc changes in the lumbar spine. Bilateral L5 spondylolysis and mild L5-S1 spondylolisthesis. Soft Tissues: Tiny fat containing umbilical hernia. PELVIS: Bladder: Symmetric distention, no gross wall thickening. Reproductive Organs: Unremarkable as visualized. Lymph Nodes: Within normal limits. Bones: Mild degenerative changes of the hips. IMPRESSION: Dilatation of the ascending aorta to 4.5 cm. No evidence of significant atherosclerotic change or dissection. No acute abnormality in the abdomen or pelvis. RADIATION DOSE DELIVERED: 3,811.31mGy.cm Total DLP DATA REPOSITORY: All CT scans at this facility are submitted to the National Radiology Data Registry (NRDR) Dose Index Registry (DIR) with the [employer] (A[employer]). RADIATION OPTIMIZATION: All CT scans at this facility use at least one of these dose optimization techniques: automated exposure control; mA and/or kV adjustment per patient size (includes targeted exams where dose is matched to clinical indication); or iterative reconstruction.
[2025-02-10] MEDS: Aspirin 81 MG CHEW 324 MG CH (12:47)
[2025-02-10 12:53] LABS: Abs Immature Grans 0.02 10^3/uL (0.0-0.06); HCT 47.5 % (40.0-50.0); HGB 16.5 g/dL (13.5-17.5); Immature Grans % 0.2 %; MCH 30.2 pg (27.0-33.0); MCHC 34.7 % (32.0-36.0); MCV 87 fL (80-95); MPV 10.3 fL (8.0-11.0); Platelet Count 229 10^3/uL (130-400); RBC 5.46 10^6/uL (4.36-5.78); RDW 13.1 % (11.8-14.1); RDW-SD 41.1 fL; WBC 8.33 10^3/uL (4.4-10.8)
[2025-02-10] MEDS: Omnipaque 350 MG/ML 500 ML BTL-Imaging package IJ (12:59)
[2025-02-10] MEDS: Normal Saline - Diluent 50 ML VIAL IJ (12:59)
[2025-02-10] MEDS: Normal Saline Flush 10 ML SYR IVP ×2 (13:00→20:23)
[2025-02-10 13:12] LABS: INR 3.0 (0.9-1.1); PTT Activated 36.6 sec (20.6-30.2); Prothrombin Time 28.0 sec (9.1-11.1)
--- NOTE | 2025-02-10 13:15 | W.ED.GENAD ---
Discharge Plan Disposition Patient Disposition: Admit to [facility] Condition: Stable Discharge Details Clinical Impression: Chest pain of uncertain etiology Primary Care Provider: Steffanie Simmons ED Provider: Frankie Smith Home Meds and New Rx's Prescriptions: No Action gabapentin 300 mg capsule 300 mg PO TID Qty: 270 3RF Rx Instructions: Take 1 three times a day amlodipine 10 mg tablet 10 mg PO DAILY Qty: 90 3RF chlorthalidone 25 mg tablet 25 mg PO DAILY Qty: 90 3RF lisinopril 40 mg tablet 40 mg PO DAILY Qty: 90 3RF semaglutide (weight loss) 2.4 mg/0.75 mL pen injector 2.4 mg subcut QWEEK Qty: 9 4RF sildenafil [Viagra] 50 mg tablet 50 mg PO DAILY PRN (Reason: sexual activity) Qty: 30 0RF Rx Instructions: administer 1 to 4 hours before activity potassium chloride 20 mEq tablet extended release 40 meq PO DAILY Qty: 180 3RF warfarin 5 mg tablet See Rx Instructions PO DAILY Qty: 100 3RF Protocol: Dose Management Condition: Friday Dose/Route: 10 mg Instruction: 2 x 5 mg tablets Condition: Friday Dose/Route: 7.5 mg Instruction: 1.5 x 5 mg tablets Condition: Friday Dose/Route: 10 mg Instruction: 2 x 5 mg tablets Condition: Friday Dose/Route: 7.5 mg Instruction: 1.5 x 5 mg tablets Condition: Dose/Route: 10 mg Instruction: 2 x 5 mg tablets Condition: Friday Dose/Route: 7.5 mg Instruction: 1.5 x 5 mg tablets Condition: Friday Dose/Route: 10 mg Instruction: 2 x 5 mg tablets Protocol Text: Adjustment Start Date: Friday02/08/25 INR Value: 2.5 INR Date: 02/08/25 Recheck Date: 03/10/25 Rx Instructions: As directed by [facility] General Date/Time Provider Initiated Documentation: 02/10/25 12:37. HPI Narrative: 55 year-old male presents to ED today by POV/ambulating with a chief complaint of shortness of breath, L sided severe chest pain radiating into back, history of known thoracic aortic aneurysm, while at a [employer] with significantly ambulating out in the hot sun with onset just prior to arrival. Quality described as L sided sharp stabbing chest pain, with sweating, shortness of breath, and feels like the pain travels straight through his chest into his back, no radiation to syncope, vomiting, visual changes, cough, fever. Severity is described as 8. Palliating factors include nothing specific attempted. Provoking factors include nothing specific. Events leading up to the incident/Associated Symptoms: Patient has a known TAA diagnosed at the same time as a PE in remote past that he's on warfarin for, had a stress and ECHO at that time, has history of Hogkin's lymphoma in remission. Patient is anticoagulated on warfarin. Related Data Home Medications ?Medication ?Instructions ?Recorded ?Confirmed sildenafil 50 mg tablet (Viagra) 50 mg PO DAILY PRN sexual activity 02/04/24 01/03/25 #30 tabs gabapentin 300 mg capsule 300 mg PO TID neuropathy #270 caps 07/05/24 01/03/25 potassium chloride 20 mEq 40 meq (2 x 20 mEq) PO DAILY #180 08/02/24 01/03/25 tablet,extended release tabs warfarin 5 mg tablet See Rx Instructions PO DAILY #100 08/06/24 01/03/25 tabs amlodipine 10 mg tablet 10 mg PO DAILY #90 tabs 01/03/25 01/03/25 chlorthalidone 25 mg tablet 25 mg PO DAILY #90 tabs 01/03/25 01/03/25 lisinopril 40 mg tablet 40 mg PO DAILY #90 tabs 01/03/25 01/03/25 semaglutide (weight loss) 2.4 2.4 mg (0.75 mL) subcut QWEEK #9 mL 01/03/25 01/03/25 mg/0.75 mL subcutaneous pen injector Previous Rx's ?Medication ?Instructions ?Recorded sildenafil 50 mg tablet (Viagra) 50 mg PO DAILY PRN sexual activity 02/04/24 #30 tabs gabapentin 300 mg capsule 300 mg PO TID neuropathy #270 caps 07/05/24 potassium chloride 20 mEq 40 meq (2 x 20 mEq) PO DAILY #180 08/02/24 tablet,extended release tabs warfarin 5 mg tablet See Rx Instructions PO DAILY #100 08/06/24 tabs amlodipine 10 mg tablet 10 mg PO DAILY #90 tabs 01/03/25 chlorthalidone 25 mg tablet 25 mg PO DAILY #90 tabs 01/03/25 lisinopril 40 mg tablet 40 mg PO DAILY #90 tabs 01/03/25 semaglutide (weight loss) 2.4 2.4 mg (0.75 mL) subcut QWEEK #9 mL 01/03/25 mg/0.75 mL subcutaneous pen injector Allergies Allergy/AdvReac Type Severity Reaction Status Date / Time No Known Allergies Allergy Verified 01/03/25 09:30 General Stated Complaint: Chest Pain LINDY: 2 Review of Systems All systems reviewed & are unremarkable except as noted in HPI and below Exam Narrative Exam Narrative: GENERAL APPEARANCE: Morbidly obese, non-toxic, awake and alert, atraumatic, moderate acute distress. SKIN: Warm, pale, diaphoretic, intact, without rashes/lesions/ulcerations. HEAD: Normocephalic, atraumatic, normal hair distribution for gender/age. EYES: Normal conjunctiva, no exudates on lids/lashes. ENT: Nares patent, no circumoral cyanosis, no facial swelling NECK: Supple, trachea midline, painless cervical ROM. LUNGS/CHEST: Lungs CTA bilaterally- no rhonchi/rales/wheezes diffusely, non-labored respirations, normal A/P diameter, symmetrical expansion, no chest wall deformity, L sided chest tenderness at 4/5th intercostal space HEART (CV/PV): Regular rate and rhythm without murmur, 1+ peripheral edema, no JVD. ABDOMEN: Soft, non-distended, no guarding, no tenderness MSK: Normal ROM, no swelling/deformity to bilateral UEs or LEs, moving all extremities without weakness, no cyanosis, spine midline without tenderness, normal curvature. NEURO: Mental Status AAOx4 - alert to person, place, time, events No facial droop, no forehead involvement. Motor: No focal weakness - strength 5/5 in bilateral UEs and LEs, proximal and distal, symmetric. Sensory: sensation intact to light touch globally. Gait NT. PSYCH: euthymic, cooperative, pleasant, appropriate speech Course Vital Signs Vital signs: Vital Signs Temperature 37.1 C 02/10/25 12:27 Pulse 109 H 02/10/25 12:27 Respiratory Rate 16 02/10/25 12:27 Blood Pressure 128/69 02/10/25 12:27 Pulse Oximetry 97 02/10/25 12:27 Temperature 37.1 C 02/10/25 12:27 Temperature Source Oral 02/10/25 12:27 Pulse 109 H 02/10/25 12:27 Respiratory Rate 16 02/10/25 12:27 Respiratory Effort Short of Breath 02/10/25 12:44 Respiratory Depth Retractive 02/10/25 12:44 Respiratory Pattern Normal 02/10/25 12:44 Blood Pressure 128/69 02/10/25 12:27 Blood Pressure Position Supine 02/10/25 12:27 Pulse Oximetry 97 02/10/25 12:27 Oxygen Delivery Method Room Air 02/10/25 12:27 Oxygen Flow Rate 0 02/10/25 12:27 Pain Level 10 02/10/25 12:27 Lab/Test Results Lab/Test Results: Laboratory Tests Range/Units 02/10/25 12:43 WBC (4.4-10.8) 10^3/uL 8.33 RBC (4.36-5.78) 10^6/uL 5.46 Hgb (13.5-17.5) g/dL 16.5 Hct (40.0-50.0) % 47.5 MCV (80-95) fL 87 MCH (27.0-33.0) pg 30.2 MCHC (32.0-36.0) % 34.7 RDW (11.8-14.1) % 13.1 Plt Count (130-400) 10^3/uL 229 MPV (8.0-11.0) fL 10.3 Immature Gran % % 0.2 Neutrophils % % 56.5 Lymphocytes % % 29.5 Monocytes % % 10.6 Eosinophils % % 1.9 Basophils % % 1.3 Nucleated RBC % (0.0-0.3) % 0.0 Absolute Neutrophils (1.2-6.7) 10^3/uL 4.70 Absolute Lymphocytes (1.2-3.4) 10^3/uL 2.46 Absolute Monocytes (0.1-0.8) 10^3/uL 0.88 H Absolute Eosinophils (0.0-0.7) 10^3/uL 0.16 Absolute Basophils (0.0-0.2) 10^3/uL 0.11 PT (9.1-11.1) sec 28.0 H INR (0.9-1.1) 3.0 H APTT (20.6-30.2) sec 36.6 H Medical Decision Making This dictation utilizes [id number] dictation software and may contain unedited grammatical errors. 55 year-old male presents to ED today by POV/ambulating with a chief complaint of shortness of breath, L sided severe chest pain radiating into back, history of known thoracic aortic aneurysm, while at a [employer] with significantly ambulating out in the hot sun with onset just prior to arrival. Quality described as L sided sharp stabbing chest pain, with sweating, shortness of breath, and feels like the pain travels straight through his chest into his back, no radiation to syncope, vomiting, visual changes, cough, fever. Severity is described as 8. Palliating factors include nothing specific attempted. Provoking factors include nothing specific. Events leading up to the incident/Associated Symptoms: Patient has a known TAA diagnosed at the same time as a PE in remote past that he's on warfarin for, had a stress and ECHO at that time, has history of Hogkin's lymphoma in remission. Patients' medical history: Hodgkin's lymphoma, hypertension, hyperlipidemia, ascending aortic aneurysm 4 cm on echo 2023, history of PE, severe obesity. Family and social history: Smokes cigarettes, denies EtOH or IVDU, lives at home with his . Pertinent exam findings / vital signs include left-sided tenderness and pleuritic chest pain, lungs CTA diffusely, regular rate mildly tacky, no murmur on auscultation, neuro intact, diaphoretic on arrival. Differential / pathologies of concern include ACS, TAA, aortic dissection, costochondritis, less likely PE, pneumonia, heat exhaustion. Diagnostic studies of: - CBC, CMP, PT/PTT, D-dimer, serial troponins, lipase, TSH, EKG, CTA thorax abdomen pelvis. - CBC is unremarkable - INR 3.0 effective on warfarin - D-dimer negative - CMP shows mild hypokalemia at 3.1 will be repleted inpatient - Serial troponins negative - Lipase negative - TSH within normal limits - CTA of the chest shows aortic aneurysm at 4.5 cm - EKG shows sinus tachycardia without ischemic changes, no inversion of T waves or profound ST depressions diffusely, no ST elevation [place] Interventions of: -324mg CH ASA, 2mg morphine IVP PRN - received 1 dose. - Consult hospitalist Dr. Sanchez at 1520- accepted for admission with HEART score 6- likely needs ECHO/stress, in-patient cards consult ED Course/Assessment/Plan: 55-year-old obese male with hypertension, hyperlipidemia, history of PE and Hodgkin's lymphoma as a risk factors presents with profound chest pain upon exertion while outside in the hot sun. Has active chest pain throughout the visit and after aspirin and morphine, he had 1 initial BP reading with systolic in the high 80s so I did avoid nitroglycerin in the ER and opted for morphine 2 mg as needed, he received 1 dose and still has low-level chest pain. His cardiac workup is negative with negative serial troponins, CTA of the chest shows no profound expansion of his known thoracic aortic aneurysm, he does have some evidence of some mild dehydration and hypokalemia likely from heat exhaustion. His heart score is 6, with his ongoing symptoms I presented the patient to hospitalist service Dr. Temple who accepted for admission, hopeful that he can receive an echocardiogram and stress test from the inpatient side. Disposition of Chest Pain of Uncertain Etiology. Patient verbalized understanding of the plan and return to ED criteria and engaged in shared decision making. Medical Records Medical records reviewed: Yes I reviewed the patient's medical records. Imaging Data Radiologic Study: Attestation: I personally reviewed and interpreted this imaging study as follows: Imaging: CT Scan Radiologist's impression: EXAM: CT THORAX ABD/PEL CTA CLINICAL HISTORY: CP; SOB; radiates through back. TECHNIQUE: Imaging Protocol: Axial CT angiography was performed with multi-slice acquisition and multi-planar and/or 3D reconstructions. CONTRAST MATERIAL: Intravenous: Omnipaque 350 Contrast volume:100 mL Oral: / no COMPARISON: CT CT NECK CHEST W from 12/18/2020 FINDINGS: CHEST: Pulmonary Arteries: Suboptimally opacified. No evidence of filling defect to suggest pulmonary emboli. Tracheobronchial tree: Patent where visualized. Mediastinum and Martha: No dominant adenopathy or fluid collection. Pulmonary parenchyma: Mildly limited evaluation due to respiratory motion. No consolidation or dominant measurable mass. No architectural distortion. Pleura: No effusion or pneumothorax. Heart: The heart is not dilated. No coronary artery calcifications are seen. No calcifications are visible at the aortic valve. Aorta: The ascending aorta is dilated to 4.5 cm, compared with 2.6 cm the descending aorta. Tho no evidence of dissection. No significant atherosclerotic calcifications. Bones: Prominent osteophytes in the thoracic spine. Tubes, Catheters, and Lines: None Soft tissues: Mild bilateral gynecomastia. ABDOMEN AND PELVIS: Abdomen: Celiac axis/mesenteric arteries: No evidence of occlusion or significant stenosis. Renal Arteries: No evidence of occlusion or significant stenosis. There is a single renal artery perfusing each kidney. Aorta: Minimal atherosclerotic calcification. No evidence of occlusion or significant stenosis. No aneurysm or dissection. Pelvis: Iliac Arteries: Minimal atherosclerotic calcification. No evidence of occlusion or significant stenosis. Common Femoral Arteries: No evidence of occlusion or significant stenosis. ABDOMEN: Liver: Hepatic steatosis. No measurable mass. Portal, Superior Mesenteric, and Splenic Veins: Unremarkable. Gallbladder and Biliary Tract: No radiodense calculus or dilation. Pancreas: Normal density, no abnormal calcifications or inflammatory process. Spleen: Normal. Adrenals: No masses seen. Kidneys: Normal size, contour and axis. No radiodense stones or obstructive uropathy. No masses seen. Bowel: No obstruction or bowel wall thickening. Appendix is unremarkable. Normal quantity of stool. Peritoneal Cavity: No ascites, collection or mesenteric inflammatory response. Lymph Nodes: Within normal limits. Bones: Advanced degenerative disc changes in the lumbar spine. Bilateral L5 spondylolysis and mild L5-S1 spondylolisthesis. Soft Tissues: Tiny fat containing umbilical hernia. PELVIS: Bladder: Symmetric distention, no gross wall thickening. Reproductive Organs: Unremarkable as visualized. Lymph Nodes: Within normal limits. Bones: Mild degenerative changes of the hips. IMPRESSION: Dilatation of the ascending aorta to 4.5 cm. No evidence of significant atherosclerotic change or dissection. No acute abnormality in the abdomen or pelvis. Lab Data Lab results reviewed: Yes I reviewed the patient's lab results. Labs: Laboratory Tests Range/Units 02/10/25 02/10/25 12:43 13:42 WBC (4.4-10.8) 10^3/uL 8.33 RBC (4.36-5.78) 10^6/uL 5.46 Hgb (13.5-17.5) g/dL 16.5 Hct (40.0-50.0) % 47.5 MCV (80-95) fL 87 MCH (27.0-33.0) pg 30.2 MCHC (32.0-36.0) % 34.7 RDW (11.8-14.1) % 13.1 Plt Count (130-400) 10^3/uL 229 MPV (8.0-11.0) fL 10.3 Immature Gran % % 0.2 Neutrophils % % 56.5 Lymphocytes % % 29.5 Monocytes % % 10.6 Eosinophils % % 1.9 Basophils % % 1.3 Nucleated RBC % (0.0-0.3) % 0.0 Absolute Neutrophils (1.2-6.7) 10^3/uL 4.70 Absolute Lymphocytes (1.2-3.4) 10^3/uL 2.46 Absolute Monocytes (0.1-0.8) 10^3/uL 0.88 H Absolute Eosinophils (0.0-0.7) 10^3/uL 0.16 Absolute Basophils (0.0-0.2) 10^3/uL 0.11 PT (9.1-11.1) sec 28.0 H INR (0.9-1.1) 3.0 H APTT (20.6-30.2) sec 36.6 H D-Dimer (<500) ng/mlFEU 338 Sodium (136-145) mmol/L 141 Potassium (3.5-5.1) mmol/L 3.1 L Chloride (98-107) mmol/L 102 Carbon Dioxide (21.0-32.0) mmol/L 26.7 Anion Gap (3-11) mmol/L 12.3 H BUN (7-18) mg/dL 16 Creatinine (0.70-1.30) mg/dL 1.4 H Est GFR (CKD-EPI 2020) (mL/min/1.73m2) 59.36 Glucose (74-106) mg/dL 114 H Calcium (8.5-10.1) mg/dL 9.5 Total Bilirubin (0.2-1.0) mg/dL 0.7 AST (15-37) U/L 24 ALT (16-63) U/L 40 Alkaline Phosphatase (46-116) U/L 40 L Troponin I (<or=76) ng/L 6 6 NT-Pro-B Natriuret Pep (<300) pg/mL 49 Total Protein (6.4-8.2) g/dL 7.2 Albumin (3.4-5.0) g/dL 3.9 Lipase (<78) U/L 57 TSH (0.36-3.74) uIU/mL 1.35 PFSH All Active Problems Chest pain of uncertain etiology (Acute) History of Hodgkin lymphoma (Chronic ~04/2019) S/p chemo, radiation. Followed by [facility] Essential hypertension (Chronic) Hyperlipidemia (Chronic) Ascending aortic aneurysm (Chronic) 4cm on ECHO 2023 Drug-induced polyneuropathy (Chronic) History of pulmonary embolism (Chronic ~04/2017) On chronic anticoagulation Anticoagulated on Coumadin (Chronic) Erectile dysfunction (Chronic) Class 3 severe obesity with body mass index (BMI) of 50.0 to 59.9 in adult (Chronic) Cigarette smoker (Chronic) Medical History (Updated 02/10/25 @ 15:32 by MARIA EUGENIA Kiran) Hodgkin lymphoma (~04/2019) S/p chemo, radiation. Followed by [facility] Pulmonary embolism (~04/2017) Neutropenic fever Lower GI bleeding Surgical History H/O neck surgery Biopsy of left neck mass Family History Mother No problems noted. Father No problems noted. Sister No problems noted. Maternal Grandfather Stroke Paternal Grandfather No problems noted. Maternal Grandmother Heart disease Stroke Paternal Grandmother No problems noted. 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 Pets and animals: No Sexually active: Yes Do you think of yourself as: straight/heterosexual Current gender identity: decline to answer What is your relationship status?: living with partner How often do you talk on the phone with friends or family?: decline to answer How often do you get together with friends or relatives?: decline to answer Do you belong to any clubs or organized social groups?: decline to answer Panel score (0-1 are the most socially isolated patients): 1 Seatbelt use: always Drive intox or ride w/intox front end loader driver: No Do you feel safe at home: Yes Do you feel safe in your relationship?: Yes
[2025-02-10] MEDS: MORPHine 10 MG/ML VIAL 2 MG IVP (13:21)
[2025-02-10 13:25] LABS: D-Dimer 338 ng/mlFEU (<500)
[2025-02-10 13:37] LABS: ALT 40 U/L (16-63); AST 24 U/L (15-37); Albumin 3.9 g/dL (3.4-5.0); Alkaline Phosphatase 40 U/L (46-116); Anion Gap 12.3 mmol/L (3-11); BUN 16 mg/dL (7-18); Bilirubin, Total 0.7 mg/dL (0.2-1.0); CO2 26.7 mmol/L (21.0-32.0); Calcium 9.5 mg/dL (8.5-10.1); Chloride 102 mmol/L (98-107); Estimated GFR 59.36 (mL/min/1.73m2); Glucose 114 mg/dL (74-106); Lipase 57 U/L (<78); Potassium 3.1 mmol/L (3.5-5.1); Sodium 141 mmol/L (136-145); TSH (W/Ref FT4) 1.35 uIU/mL (0.36-3.74); Total Protein 7.2 g/dL (6.4-8.2); Troponin I 6 ng/L (<or=76)
[2025-02-10] MEDS: Normal Saline 500 ML IV (14:17)
[2025-02-10 14:23] LABS: NT-proBNP 49 pg/mL (<300)
[2025-02-10 14:44] LABS: Troponin I 6 ng/L (<or=76)
--- NOTE | 2025-02-10 15:31 | W.PM.HP.N ---
Date of service: 02/10/25 Time of Service: 15:31 Assessment and Plan Assessment and plan (1) Chest pain of uncertain etiology: Status: Acute Assessment and plan: Troponin and EKG negative for ACS, PE r/o as per CTA , no dissection of TAA -Chest pain increased coughing and reported radiation to left upper back - localized and tender to palpation- patient denied heavy lifting or twisting -Scheduled APAP- and reevaluate in AM NSAIDs not indicated as per point 2 -Cardiology consult: Despite negative work-up but d/t risk factors -will seek expert opinion re: need for MPI or echo w negative BNP -EKG and troponin with recurrent symptoms or worsening - URV panel ordered d/t ongoing congestion and chest pain/ pleuretic pain w coughing CBC in AM (2) GOPAL (acute kidney injury): Status: Acute Assessment and plan: Cr 1.4 from 1.0 baseline IVF overnight - no HFrEF as per last echo BMP in AM Avoid nephrotoxic Rx as much as possible BMP in AM (3) Essential hypertension: Status: Chronic Assessment and plan: Lisinopril on hold d/t Cr 1.4 (4) Hyperlipidemia: Status: Chronic Assessment and plan: LDL 111 as of 08/02/24 Continue outpatient management (5) Ascending aortic aneurysm: Status: Chronic Assessment and plan: 4.1 cm in 2020 now 4.5 cm no dissection Continue monitoring as per PCP - recommending vascular f/u (6) Anticoagulated on Coumadin: Status: Chronic Assessment and plan: Chronic Warfarin for Hx of PE- Goal 2 to 3 INR 3.0- will give 5 mg today Then continue home regimen on 02/11 as per AM INR result (7) Class 3 severe obesity with body mass index (BMI) of 50.0 to 59.9 in adult: Status: Chronic Assessment and plan: Continue outpatient management: on semaglutide weekly (8) Cigarette smoker: Status: Chronic Assessment and plan: NRT PRN discussed with Dr. Sanchez History of Present Illness History of Present Illness Chief Complaint: Chest pain Narrative: 55 years old male patient with a PMHx of TAA, PE on warfarin,nicotine dependence, Hogkin's lymphoma in remission, morbid obesity on semaglutide presented to the ED for evaluation of left sided chest pain irradiating to the back with shortness of breath and diaphoresis developing after a picnic this afternoon. The work-up in the ED was negative for ACS as per troponin X2 and EKG. Blood work was unremarkable except for a Cr at 1.4 with baseline 1.0 and potassium at 3.1. CTA of the chest abdomen and pelvis was negative for PE or other acute findings but showed TA dilation progressing from 4.1 cm in 2019 to 4.5 cm w/o dissection. The patient reports subsided blurry vision and dizziness, left sided chest pain changing intensity with repositioning, exacerbated w deep coughing, back pain worsening with palpation; reports ongoing nasal congestion starting in the past 7 days, worst with lying down, no sick contacts. Denies nausea, vomiting abdominal pain, dysuria. Full code status confirmed. The patient was admitted to the medical surgical floor with telemetry for chest pain, GOPAL and cardiology consult.ASA 324 mg and IV crystalloid 500 ml given in the ED. Review of Systems All systems reviewed & are unremarkable except as noted in HPI and below PFSH All Active Problems GOPAL (acute kidney injury) (Acute) Chest pain of uncertain etiology (Acute) History of Hodgkin lymphoma (Chronic ~04/2019) S/p chemo, radiation. [place] [facility] [place] Essential hypertension (Chronic) Hyperlipidemia (Chronic) Ascending aortic aneurysm (Chronic) 4cm on ECHO 2023 Drug-induced polyneuropathy (Chronic) History of pulmonary embolism (Chronic ~04/2017) On chronic anticoagulation Anticoagulated on Coumadin (Chronic) Erectile dysfunction (Chronic) Class 3 severe obesity with body mass index (BMI) of 50.0 to 59.9 in adult (Chronic) Cigarette smoker (Chronic) Medical History (Updated 02/10/25 @ 16:52 by Jacque Ernst APRN) Hodgkin lymphoma (~04/2019) S/p chemo, radiation. [place] [facility] [place] [facility] Pulmonary embolism (~04/2017) Neutropenic fever Lower GI bleeding Surgical History H/O neck surgery Biopsy of left neck mass Family History Mother No problems noted. Father No problems noted. Sister No problems noted. Maternal Grandfather Stroke Paternal Grandfather No problems noted. Maternal Grandmother Heart disease Stroke Paternal Grandmother No problems noted. 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 Pets and animals: No Sexually active: Yes Do you think of yourself as: straight/heterosexual Current gender identity: decline to answer What is your relationship status?: living with partner How often do you talk on the phone with friends or family?: decline to answer How often do you get together with friends or relatives?: decline to answer Do you belong to any clubs or organized social groups?: decline to answer Panel score (0-1 are the most socially isolated patients): 1 Seatbelt use: always Drive intox or ride w/intox sales warehouse driver: No Do you feel safe at home: Yes Do you feel safe in your relationship?: Yes Meds Allergies and Home Medications Allergies Allergy/AdvReac Type Severity Reaction Status Date / Time No Known Allergies Allergy Verified 01/03/25 09:30 Home Medications ?Medication ?Instructions ?Recorded ?Confirmed ?Type sildenafil 50 mg tablet (Viagra) 50 mg PO DAILY PRN sexual activity 02/04/24 02/10/25 Rx #30 tabs gabapentin 300 mg capsule 300 mg PO TID neuropathy #270 caps 07/05/24 02/10/25 Rx potassium chloride 20 mEq 40 meq (2 x 20 mEq) PO DAILY #180 08/02/24 02/10/25 Rx tablet,extended release tabs warfarin 5 mg tablet See Rx Instructions PO DAILY #100 08/06/24 02/10/25 Rx tabs amlodipine 10 mg tablet 10 mg PO DAILY #90 tabs 01/03/25 02/10/25 Rx Held on 02/10/25. Instructions: Pt Stopped/Never Started chlorthalidone 25 mg tablet 25 mg PO DAILY #90 tabs 01/03/25 02/10/25 Rx lisinopril 40 mg tablet 40 mg PO DAILY #90 tabs 01/03/25 02/10/25 Rx semaglutide (weight loss) 2.4 2.4 mg (0.75 mL) subcut QWEEK #9 mL 01/03/25 02/10/25 Rx mg/0.75 mL subcutaneous pen injector Exam Narrative Exam Narrative: 55 y.o male in no acute distress at rest , no focal neurological deficits, A&O X4, unlabored breathing and clear lungs at rest - slightly labored when changing position, S1,S2, no murmur , regular heart reate and rhythm, tenderness on palpation of 5-6th rib level / thoracic back, no CVA tenderness Results Labs 02/10/25 12:43 02/10/25 12:43 Labs: Laboratory Results - last 24 hr 02/10/25 02/10/25 12:43 13:42 WBC 8.33 RBC 5.46 Hgb 16.5 Hct 47.5 MCV 87 MCH 30.2 MCHC 34.7 RDW 13.1 Plt Count 229 MPV 10.3 Immature Gran % 0.2 Neutrophils % 56.5 Lymphocytes % 29.5 Monocytes % 10.6 Eosinophils % 1.9 Basophils % 1.3 Nucleated RBC % 0.0 Absolute Neutrophils 4.70 Absolute Lymphocytes 2.46 Absolute Monocytes 0.88 H Absolute Eosinophils 0.16 Absolute Basophils 0.11 PT 28.0 H INR 3.0 H APTT 36.6 H D-Dimer 338 Sodium 141 Potassium 3.1 L Chloride 102 Carbon Dioxide 26.7 Anion Gap 12.3 H BUN 16 Creatinine 1.4 H Est GFR (CKD-EPI 2020) 59.36 Glucose 114 H Calcium 9.5 Total Bilirubin 0.7 AST 24 ALT 40 Alkaline Phosphatase 40 L Troponin I 6 6 NT-Pro-B Natriuret Pep 49 Total Protein 7.2 Albumin 3.9 Lipase 57 TSH 1.35 Last Vital Signs Temp 37.1 C 02/10/25 12:27 Pulse 83 02/10/25 15:20 Resp 15 02/10/25 15:20 BP 147/95 H 02/10/25 15:15 Pulse Ox 98 02/10/25 15:20 Time Spent Time spent with Patient: >75 minutes Time was spent: preparing to see the patient(eg.review tests), obtaining and/or reviewing separately otained hiistory, ordering medications,tests, procedures, referring, communicating with other health career coach, indepentently interpreting results, counseling the patient and care coordination
[2025-02-10 16:06] LABS: Magnesium 2.0 mg/dL (1.8-2.4)
[2025-02-10 16:56] LABS: COVID-19 PCR Negative (Negative); RSV PCR Negative (Negative)
[2025-02-10] MEDS: Acetaminophen 500 MG TAB 1000 MG PO ×2 (18:06→23:55)
[2025-02-10] MEDS: POTASSIUM CHLORIDE 20 MEQ/100 ML BAG 50 MEQ IV_INF ×2 (18:07→22:06)
--- NOTE | 2025-02-10 19:08 | W.PC.ACHO ---
Registration Status: ADM JANET Primary Language: Preferred Language: [place] ED Information & Data Chief Complaint Chest Pain 02/10/25 13:16 Triage Note Pt reports CP on L side that 02/10/25 12:27 radiates into L side with SOB x 45 min. Pt outside at work picnic when symptoms began. Pt reports HX of AA, PE, Hodgkin's lymphoma (5 years ago) Medical / Surgical History (Last Updated 01/22/24 @ 06:34 by Steffanie Simmons NP) Hodgkin lymphoma (~04/2019) Pulmonary embolism (~04/2017) Neutropenic fever Lower GI bleeding (Last Reviewed 01/02/24 @ 14:46 by Steffanie Simmons NP) H/O neck surgery Most Recent Vital Signs Temperature 36.6 C 02/10/25 17:27 Temperature Source Skin 02/10/25 17:20 Pulse 82 02/10/25 17:27 Pulse Rhythm Regular 02/10/25 17:27 Pulse 83 02/10/25 15:20 Respiratory Rate 16 02/10/25 17:27 Respiratory Effort Normal 02/10/25 17:27 Respiratory Depth Normal 02/10/25 17:27 Respiratory Pattern Normal 02/10/25 17:27 Blood Pressure 128/83 02/10/25 17:27 Blood Pressure Mean 98 02/10/25 17:20 Blood Pressure Position Supine 02/10/25 12:27 Pulse Oximetry 97 02/10/25 17:27 Oxygen Delivery Method Room Air 02/10/25 17:27 Oxygen Flow Rate 0 02/10/25 17:27 Pain Level 5 02/10/25 18:06 Allergies No Known Allergies Allergy (Verified 01/03/25 09:30) Active Medications Generic Name Dose Route Start Last Admin Trade Name Vietq PRN Reason Stop Dose Admin Acetaminophen 1,000 mg 02/10/25 18:00 02/10/25 18:06 Acetaminophen 500 Mg Tab PO 1,000 mg Q6H TYLER Administration Potassium Chloride 20 meq in 100 mls @ 50 mls/hr 02/10/25 17:00 02/10/25 18:07 IV_INF 02/10/25 20:59 50 mls/hr Q2H TYLER Administration IV IV Catheter Type [Left Forearm Saline Lock ] IV Catheter Gauge [Left 18 Forearm] Diet Orders Category Date Time Status Diabetes Consistent CHO/Heart Healthy [DIET] Nutrition 02/10/25 Dinner Active Diagnostics 02/10/25 02/10/25 02/10/25 Range/Units 16:15 13:42 12:43 WBC 8.33 (4.4-10.8) 10^3/uL RBC 5.46 (4.36-5.78) 10^6/uL Hgb 16.5 (13.5-17.5) g/dL Hct 47.5 (40.0-50.0) % MCV 87 (80-95) fL MCH 30.2 (27.0-33.0) pg MCHC 34.7 (32.0-36.0) % RDW 13.1 (11.8-14.1) % Plt Count 229 (130-400) 10^3/uL MPV 10.3 (8.0-11.0) fL Immature Gran % 0.2 % Neutrophils % 56.5 % Lymphocytes % 29.5 % Monocytes % 10.6 % Eosinophils % 1.9 % Basophils % 1.3 % Nucleated RBC % 0.0 (0.0-0.3) % Absolute Neutrophils 4.70 (1.2-6.7) 10^3/uL Absolute Lymphocytes 2.46 (1.2-3.4) 10^3/uL Absolute Monocytes 0.88 H (0.1-0.8) 10^3/uL Absolute Eosinophils 0.16 (0.0-0.7) 10^3/uL Absolute Basophils 0.11 (0.0-0.2) 10^3/uL PT 28.0 H (9.1-11.1) sec INR 3.0 H (0.9-1.1) APTT 36.6 H (20.6-30.2) sec D-Dimer 338 (<500) ng/mlFEU Sodium 141 (136-145) mmol/L Potassium 3.1 L (3.5-5.1) mmol/L Chloride 102 (98-107) mmol/L Carbon Dioxide 26.7 (21.0-32.0) mmol/L Anion Gap 12.3 H (3-11) mmol/L BUN 16 (7-18) mg/dL Creatinine 1.4 H (0.70-1.30) mg/dL Est GFR (CKD-EPI 2020) 59.36 (mL/min/1.73m2) Glucose 114 H (74-106) mg/dL Calcium 9.5 (8.5-10.1) mg/dL Magnesium 2.0 (1.8-2.4) mg/dL Total Bilirubin 0.7 (0.2-1.0) mg/dL AST 24 (15-37) U/L ALT 40 (16-63) U/L Alkaline Phosphatase 40 L (46-116) U/L Troponin I 6 6 (<or=76) ng/L NT-Pro-B Natriuret Pep 49 (<300) pg/mL Total Protein 7.2 (6.4-8.2) g/dL Albumin 3.9 (3.4-5.0) g/dL Lipase 57 (<78) U/L TSH 1.35 (0.36-3.74) uIU/mL COVID-19 Source Nasopharynx SARS-CoV-2 (PCR) Negative (Negative) Influenza Type A (PCR) Negative (Negative) Influenza Type B (PCR) Negative (Negative) RSV (PCR) Negative (Negative) [id number] Documentation Fingerstick Glucose Start: 02/10/25 17:27 Freq: .ACHS Status: Complete Protocol: Activity Type Activity Date Activity User E-sign Co-sign Detail Recorded Client Recorded Date Recorded By Document 02/10/25 17:29 BKG DAEMON(3) [id number] 02/10/25 17:31 BKG DAEMON(4) Intake and Output - 24 Hour Total 02/10/25 12:20 thru 02/10/25 17:27 Weight 170.9 kg Other: Urine Appearance Clear Falls Risk Assessment History of Falls No History 02/10/25 17:27 Contributing Factors No Factors 02/10/25 12:44 Ambulatory Aids Independent 02/10/25 17:27 Tubes/Lines None 02/10/25 17:27 Gait Evaluation No gait disturbance 02/10/25 17:27 Cognition No cognitive impairment 02/10/25 17:27 Fall Total Score 0 02/10/25 17:27 Level of Risk Standard/Low Risk 02/10/25 17:27 Problems GOPAL (acute kidney injury) (Acute) Chest pain of uncertain etiology (Acute) Essential hypertension (Chronic) Hyperlipidemia (Chronic) Ascending aortic aneurysm (Chronic) Anticoagulated on Coumadin (Chronic) Class 3 severe obesity with body mass index (BMI) of 50.0 to 59.9 in adult (Chronic) Cigarette smoker (Chronic) v v v v v v v v v Sending and/or Receiving Nurses: Please use comment section below to note any information pertinent to the patient hand-off not included above. Information / Comments: Report received from: [facility] ED @ [id number]
[2025-02-10] MEDS: Lactated Ringers 1,000 ML 80 ML IV (19:41)
[2025-02-10] MEDS: Gabapentin 300 MG CAP PO (20:14)
[2025-02-11 03:30] VITALS: BP 102/68; PULSE 70; RESP 16; TEMP 36.5; O2SAT 97
[2025-02-11] MEDS: Acetaminophen 500 MG TAB 1000 MG PO (05:18)
[2025-02-11] MEDS: Lactated Ringers 1,000 ML 80 ML IV (06:41)
[2025-02-11 06:42] LABS: Abs Immature Grans 0.01 10^3/uL (0.0-0.06); HCT 43.8 % (40.0-50.0); HGB 15.0 g/dL (13.5-17.5); Immature Grans % 0.2 %; MCH 30.1 pg (27.0-33.0); MCHC 34.2 % (32.0-36.0); MCV 88 fL (80-95); MPV 10.2 fL (8.0-11.0); Platelet Count 176 10^3/uL (130-400); RBC 4.99 10^6/uL (4.36-5.78); RDW 13.2 % (11.8-14.1); RDW-SD 42.5 fL; WBC 5.72 10^3/uL (4.4-10.8)
[2025-02-11 06:57] LABS: INR 3.1 (0.9-1.1); Prothrombin Time 28.5 sec (9.1-11.1)
[2025-02-11 07:00] LABS: Anion Gap 6.7 mmol/L (3-11); BUN 11 mg/dL (7-18); CO2 31.3 mmol/L (21.0-32.0); Calcium 8.8 mg/dL (8.5-10.1); Chloride 105 mmol/L (98-107); Estimated GFR 100.86 (mL/min/1.73m2); Glucose 98 mg/dL (74-106); Potassium 3.4 mmol/L (3.5-5.1); Sodium 143 mmol/L (136-145)
[2025-02-11 08:41] VITALS: BP 124/78; PULSE 67; RESP 16; TEMP 36.8; O2SAT 99
[2025-02-11] MEDS: Potassium Chloride 20 MEQ TABCR 40 MEQ PO (09:24)
[2025-02-11] MEDS: Gabapentin 300 MG CAP PO (09:24)
--- NOTE | 2025-02-11 09:26 | PDOC.CMIN ---
Date of service: 02/11/25 Time of Service: 09:26 Care Management Initial Assmt Initial Assessment Reason for Hospitalization: Chest pain Functional Status/Living Situation Patient Presentation: Jarrod was sitting in a recliner when CM met with him and is accompanied by his sister Jan. Garay is independent at baseline and has no concerns to report at this time. Interaction with CM was brief, patient expresses that he is ready to discharge home. Town of Residence: [place] Resides with: Other (S/O Safia Hercules) Significant Other/Family: Local (Supportive family and friends) Instrumental Activities of Daily Living (ADLs): Independent Medications Medication Management: No Issues/Barriers identified Advance Directives Advance Directives: Do you have an Advance Directive: Y 07/11/20, 15:30 AD On File at [facility]: N 04/21/24, 13:10 Date Asked 02/10/25 02/10/25, 12:53 AD Date Reviewed 02/10/25 02/10/25, 17:16 COLST On File at [facility] COLST Date Scanned Code Status Resuscitation Status Full Code Insurance Coverage/Financial Issues Insurance: BC/BS Out of State - [id number] Care Team Visit Care Team Role Provider Type Jacque Ernst APRN MD [facility] STAFF PHYSICIAN Steffanie Simmons NP Primary Care Provider NURSE PRACTITIONER MARIA EUGENIA Kiran Emergency Provider PHYSICIANS ASSISTANT Adriano Sanchez MD Admit Provider [facility] STAFF PHYSICIAN Attending Provider Discharge Potential Discharge Needs: Consult Consult Services Needed: Cardiology and PCP F/U Appt Anticipated Barriers to Discharge: None Identified Patient/Family Education Needs: Review discharge instructions, discuss Ask Me Three Transportation: Private vehicle Plan: Jarrod will discharge home via private vehicle with family. Patient will follow up with PCP, Cardiology and continue per discharge plan of care as directed. No new services are anticipated at this time. Social Determinants of Health Screening Social Determinants of health last assessed in clinic: 02/11/25 Will the Patient Participate in the Screening?: Yes Do you worry about having a steady place to live?: yes What is your living situation today?: I have housing today, but am worried about losing it Problems where you live: no known problems In the past 12 months, have you had to go without electric, gas, oil or water in your home?: no 1. Within the past 12 months, we worried whether our food would run out before we got money to buy more.: Never true 2. Within the past 12 months, the food we bought just didn't last and we didn't have money to get more.: Never true Has lack of transportation kept you from medical appointments or from doing things needed for daily living?: no Has anyone in your life made you feel unsafe or unsupported?: no How hard is it for you to pay for the very basics like food, housing, medical care, and heating? Would you say it is:: Not hard at all Do you want help finding or keeping work or a job?: I do not need or want help If for any reason you need help with day-to-day activities such as bathing, preparing meals, shopping, managing finances, etc., do you get the help you need?: I get all the help I need How often do you feel lonely or isolated from those around you?: Never Do you speak a language other than A[place] at home?: No Does the patient want assistance with any of the above?: No Health Related Social Needs Health related social needs: housing instability, housed, with risk of homelessness (Z59.811) PFSH All Active Problems GOPAL (acute kidney injury) (Acute) Chest pain of uncertain etiology (Acute) History of Hodgkin lymphoma (Chronic ~04/2019) S/p chemo, radiation. [place] [facility] [place] Essential hypertension (Chronic) Hyperlipidemia (Chronic) Ascending aortic aneurysm (Chronic) 4cm on ECHO 2023 Drug-induced polyneuropathy (Chronic) History of pulmonary embolism (Chronic ~04/2017) On chronic anticoagulation Anticoagulated on Coumadin (Chronic) Erectile dysfunction (Chronic) Class 3 severe obesity with body mass index (BMI) of 50.0 to 59.9 in adult (Chronic) Cigarette smoker (Chronic) Medical History Hodgkin lymphoma (~04/2019) S/p chemo, radiation. [place] [facility] [place] Pulmonary embolism (~04/2017) Neutropenic fever Lower GI bleeding Surgical History H/O neck surgery Biopsy of left neck mass Family History Mother No problems noted. Father No problems noted. Sister No problems noted. Maternal Grandfather Stroke Paternal Grandfather No problems noted. Maternal Grandmother Heart disease Stroke Paternal Grandmother No problems noted. 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 Pets and animals: No Sexually active: Yes Do you think of yourself as: straight/heterosexual Current gender identity: decline to answer What is your relationship status?: living with partner How often do you talk on the phone with friends or family?: decline to answer How often do you get together with friends or relatives?: decline to answer Do you belong to any clubs or organized social groups?: decline to answer Panel score (0-1 are the most socially isolated patients): 1 Seatbelt use: always Drive intox or ride w/intox driver material handler: No Do you feel safe at home: Yes Do you feel safe in your relationship?: Yes
--- NOTE | 2025-02-11 10:53 | DSE_ITS ---
Date of service: 02/11/25 Time of Service: 10:53 DS: Diagnosis Discharge Diagnosis (1) Chest pain of uncertain etiology: Status: Acute (2) OGPAL (acute kidney injury): Status: Acute (3) Essential hypertension: Status: Chronic (4) Hyperlipidemia: Status: Chronic (5) Ascending aortic aneurysm: Status: Chronic (6) Anticoagulated on Coumadin: Status: Chronic (7) Class 3 severe obesity with body mass index (BMI) of 50.0 to 59.9 in adult: Status: Chronic (8) Cigarette smoker: Status: Chronic Discharge Plan Disposition Patient Disposition: Home Condition: Stable Discharge Details Reason For Visit: Chest Pain, GOPAL Admit Date/Time: 02/10/25 15:48 Admit Provider: Adriano Sanchez Attending Provider: Adriano Sanchez Primary Care Provider: IrisSteffanie [facility] Hospital Course: 55 years old male patient with a PMHx of TAA, PE on warfarin,nicotine dependence, Hogkin's lymphoma in remission, morbid obesity on semaglutide presented to the EDon 02/10/25 for evaluation of left sided chest pain irradiating to the back with shortness of breath and diaphoresis developing after a picnic on the day of presentation. The work-up in the ED was negative for ACS as per troponin X2 and EKG. Blood work showed a Cr at 1.4 with baseline 1.0 and potassium at 3.1. CTA of the chest abdomen and pelvis was negative for PE or other acute findings but showed TA dilation progressing from 4.1 cm in 2020 to 4.5 cm w/o dissection. The patient was admitted to the medical surgical floor with telemetry for chest pain, GOPAL , IVF administration and cardiology consult. ASA 324 mg and IV crystalloid 500 ml given in the ED. Cardiology consult completed with recommendation for outpatient MPI likely need to be performed with pharmacologic stress. GOPAL resolved s/p IV hydration and potassium was supplemented. The patient is hemodynamically stable without further complaint of left sided chest pain. Back/ pain resolved with scheduled acetaminophen dosing.WArfarin dose held today and home regimen to be restarted on Friday02/12/25 with INR ordered for friday02/14/2025. The patient will be discharged home with follow-up with PCP within 7 days of discharge. Discussed with Dr. Sanchez Recommendations for Follow Up Recommended tests to be ordered by follow up provider: INR (02/14/25) follow- up results, please . Needs an outpatient MPI, echocardiogram outpatient, [facility] vascular f/u Home Meds and New Rx's Prescriptions: New acetaminophen 500 mg Tablet 1,000 mg PO Q6H Qty: 32 0RF Continued gabapentin 300 mg capsule 300 mg PO TID Qty: 270 3RF Rx Instructions: Take 1 three times a day chlorthalidone 25 mg tablet 25 mg PO DAILY Qty: 90 3RF lisinopril 40 mg tablet 40 mg PO DAILY Qty: 90 3RF semaglutide (weight loss) 2.4 mg/0.75 mL pen injector 2.4 mg subcut QWEEK Qty: 9 4RF sildenafil [Viagra] 50 mg tablet 50 mg PO DAILY PRN (Reason: sexual activity) Qty: 30 0RF Rx Instructions: administer 1 to 4 hours before activity potassium chloride 20 mEq tablet extended release 40 meq PO DAILY Qty: 180 3RF warfarin 5 mg tablet See Rx Instructions PO DAILY Qty: 100 3RF Protocol: Dose Management Condition: Friday Dose/Route: 10 mg Instruction: 2 x 5 mg tablets Condition: Friday Dose/Route: 7.5 mg Instruction: 1.5 x 5 mg tablets Condition: Friday Dose/Route: 10 mg Instruction: 2 x 5 mg tablets Condition: Friday Dose/Route: 7.5 mg Instruction: 1.5 x 5 mg tablets Condition: Dose/Route: 10 mg Instruction: 2 x 5 mg tablets Condition: Friday Dose/Route: 7.5 mg Instruction: 1.5 x 5 mg tablets Condition: Friday Dose/Route: 10 mg Instruction: 2 x 5 mg tablets Protocol Text: Adjustment Start Date: Friday02/08/25 INR Value: 2.5 INR Date: 02/08/25 Recheck Date: 03/10/25 Patient Comments: patient takes dose in the AM Rx Instructions: As directed by [facility] amlodipine 10 mg tablet 10 mg PO DAILY Qty: 90 3RF Hold Instructions: Resume on 02/18/25. Patient mentioned not taking - discuss resumption with PCP please Discharge Instructions Stand Alone Forms: Nursing Discharge Form Referrals: Steffanie Simmons NP [Primary Care Provider, Medicine] Referral Note: Follow-up within 7 days of discharge, please. PCP office will give you a call to set up a follow up appointment. Activity:: Activity as Tolerated Equipment/Supplies:: No Equipment Needed Diet:: heart healthy Discharge Orders Discharge Orders: Discharge Order (Routine); Ordered 02/11/25 Ordered By: Jacque Ernst Other Ambulatory Orders: Prothrombin Time (Routine) Timeframe: 20250214 Facility: [facility] - Location: Laboratory Outpatient - [facility] Ordered By: Jacque Ernst DS: Summary Time Spent with Patient providing and/or coordinating discharge services: Greater than 30 minutes Status at Discharge Functional status at discharge: independent ambulation Overall status at discharge: patient is not back to baseline Mental Status: mental status grossly normal Speech and Movement: speech and movement normal Mood: congruent mood Affect: normal affect Quality:SDOH Health Related Social Needs: Health related social needs risk of homeless Exam Narrative Exam Narrative: 55 y.o male sitting in recliner without acute distress , no focal neurological deficits, A&O X4, unlabored breathing and clear lungs-no further chest pain with coughing , tele SR HR 62, S1,S2, no murmur ,abdomen non-distended. soft non- tender, bowel sounds are present, minimal left thoracic back tenderness on palpation, no CVA tenderness Psych Mental Status: mental status grossly normal Speech and Movement: speech and movement normal Mood: congruent mood Affect: normal affect DS: Data Vitals/I&O Vitals and I&O: Vital Signs Temperature 36.8 C 02/11/25 08:41 Temperature Source Temporal Artery Scan 02/11/25 08:41 Pulse 67 02/11/25 08:41 Pulse Rhythm Regular 02/10/25 17:27 Pulse 83 02/10/25 15:20 Respiratory Rate 16 02/11/25 08:41 Respiratory Effort Normal 02/10/25 17:27 Respiratory Depth Normal 02/10/25 17:27 Respiratory Pattern Normal 02/10/25 17:27 Blood Pressure 124/78 02/11/25 08:41 Blood Pressure Mean 93 02/11/25 08:41 Blood Pressure Position Supine 02/10/25 12:27 Pulse Oximetry 99 02/11/25 08:41 Oxygen Delivery Method Room Air 02/11/25 08:41 Oxygen Flow Rate 0 02/11/25 08:41 Pain Level 3 02/11/25 05:18 Intake & Output 08/14/25 08/14/25 08/15/25 11:59 23:59 11:59 Intake Total 100 / 100 1100 / 1100 Balance 100 / 100 1100 / 1100 Weight 170.9 kg Intake: IV 100 / 100 1100 / 1100 Other: Urine Color Yellow Urine Appearance Clear Urine Odor None Comment KERI Stool Size Moderate Stool Characteristics Formed Brown Data Completed and Pending Labs on day of discharge: Labs from last 24 hours 02/11/25 02/10/25 02/10/25 06:25 16:15 13:42 WBC 5.72 RBC 4.99 Hgb 15.0 Hct 43.8 MCV 88 MCH 30.1 MCHC 34.2 RDW 13.2 Plt Count 176 MPV 10.2 Immature Gran % 0.2 Neutrophils % 52.3 Lymphocytes % 28.8 Monocytes % 12.4 Eosinophils % 4.4 Basophils % 1.9 Nucleated RBC % 0.0 Absolute Neutrophils 2.99 Absolute Lymphocytes 1.65 Absolute Monocytes 0.71 Absolute Eosinophils 0.25 Absolute Basophils 0.11 PT 28.5 H INR 3.1 H APTT D-Dimer Sodium 143 Potassium 3.4 L Chloride 105 Carbon Dioxide 31.3 Anion Gap 6.7 BUN 11 Creatinine 0.9 Est GFR (CKD-EPI 2020) 100.86 Glucose 98 Calcium 8.8 Magnesium Total Bilirubin AST ALT Alkaline Phosphatase Troponin I 6 NT-Pro-B Natriuret Pep Total Protein Albumin Lipase TSH COVID-19 Source Nasopharynx SARS-CoV-2 (PCR) Negative Influenza Type A (PCR) Negative Influenza Type B (PCR) Negative RSV (PCR) Negative 02/10/25 12:43 WBC 8.33 RBC 5.46 Hgb 16.5 Hct 47.5 MCV 87 MCH 30.2 MCHC 34.7 RDW 13.1 Plt Count 229 MPV 10.3 Immature Gran % 0.2 Neutrophils % 56.5 Lymphocytes % 29.5 Monocytes % 10.6 Eosinophils % 1.9 Basophils % 1.3 Nucleated RBC % 0.0 Absolute Neutrophils 4.70 Absolute Lymphocytes 2.46 Absolute Monocytes 0.88 H Absolute Eosinophils 0.16 Absolute Basophils 0.11 PT 28.0 H INR 3.0 H APTT 36.6 H D-Dimer 338 Sodium 141 Potassium 3.1 L Chloride 102 Carbon Dioxide 26.7 Anion Gap 12.3 H BUN 16 Creatinine 1.4 H Est GFR (CKD-EPI 2020) 59.36 Glucose 114 H Calcium 9.5 Magnesium 2.0 Total Bilirubin 0.7 AST 24 ALT 40 Alkaline Phosphatase 40 L Troponin I 6 NT-Pro-B Natriuret Pep 49 Total Protein 7.2 Albumin 3.9 Lipase 57 TSH 1.35 COVID-19 Source SARS-CoV-2 (PCR) Influenza Type A (PCR) Influenza Type B (PCR) RSV (PCR) PFSH All Active Problems GOPAL (acute kidney injury) (Acute) Chest pain of uncertain etiology (Acute) History of Hodgkin lymphoma (Chronic ~04/2019) S/p chemo, radiation. Followed by [facility] Oncology Essential hypertension (Chronic) Hyperlipidemia (Chronic) Ascending aortic aneurysm (Chronic) 4cm on ECHO 2023 Drug-induced polyneuropathy (Chronic) History of pulmonary embolism (Chronic ~04/2017) On chronic anticoagulation Anticoagulated on Coumadin (Chronic) Erectile dysfunction (Chronic) Class 3 severe obesity with body mass index (BMI) of 50.0 to 59.9 in adult (Chronic) Cigarette smoker (Chronic) Medical History Hodgkin lymphoma (~04/2019) S/p chemo, radiation. Followed by [facility] Oncology Pulmonary embolism (~04/2017) Neutropenic fever Lower GI bleeding Surgical History H/O neck surgery Biopsy of left neck mass Family History Mother No problems noted. Father No problems noted. Sister No problems noted. Maternal Grandfather Stroke Paternal Grandfather No problems noted. Maternal Grandmother Heart disease Stroke Paternal Grandmother No problems noted. 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 Pets and animals: No Sexually active: Yes Do you think of yourself as: straight/heterosexual Current gender identity: decline to answer What is your relationship status?: living with partner How often do you talk on the phone with friends or family?: decline to answer How often do you get together with friends or relatives?: decline to answer Do you belong to any clubs or organized social groups?: decline to answer Panel score (0-1 are the most socially isolated patients): 1 Seatbelt use: always Drive intox or ride w/intox auto crane driver: No Do you feel safe at home: Yes Do you feel safe in your relationship?: Yes Time Spent with Patient Time Spent with Patient: 70-84 minutes4 Time was spent: preparing to see the patient(eg.review tests), obtaining and/or reviewing separately otained hiistory, ordering medications,tests, procedures, referring, communicating with other health overnight caregiver, indepentently interpreting results, counseling the patient and care coordination
--- NOTE | 2025-02-11 11:02 | CCONE_ITS ---
Date of service: 02/11/25 Time of Service: 11:02 Assessment and Plan Assessment and plan (1) Chest pain of uncertain etiology: Status: Acute Assessment and plan: Patient has atypical chest pain. By history it sounds musculoskeletal. There is no evidence of myocardial necrosis. I would deem him stable for discharge from the hospital. He should have an outpatient myocardial perfusion imaging study which will likely need to be performed with pharmacologic stress. (2) Ascending aortic aneurysm: Status: Chronic Assessment and plan: Followed by vascular surgery at [facility] History of Present Illness Narrative: This is a 55-year-old man who presented to the hospital with chest pain. He has a history of pulmonary embolism in 2017, as well as Hodgkin's lymphoma diagnosed in 2019. He was in his usual state of health until the day of presentation. He had gone to a work event which apparently was outside where it was quite warm. Patient reports that he felt very hot and uncomfortable and went to walk about 100 yards. He got low sternal chest pain which radiated to the back. This was possibly pleuritic and due to persistence he eventually came to the emergency room where he was evaluated and brought into the hospital. His EKG showed left anterior fascicular block and right bundle branch block. Cardiac enzymes were negative. He has had testing which included a CT of the chest, primarily to evaluate a known thoracic aortic aneurysm. This was deemed to be stable. Interestingly the imaging did not describe any coronary artery calcifications at all Patient has no history of coronary artery disease. He had a myocardial perfusion imaging study done around 2018 which was unremarkable Review of Systems Cardiovascular Cardiovascular: Reports as per [facility] All Active Problems GOPAL (acute kidney injury) (Acute) Chest pain of uncertain etiology (Acute) History of Hodgkin lymphoma (Chronic ~04/2019) S/p chemo, radiation. Followed by [facility] [place] Oncology Essential hypertension (Chronic) Hyperlipidemia (Chronic) Ascending aortic aneurysm (Chronic) 4cm on ECHO 2023 Drug-induced polyneuropathy (Chronic) History of pulmonary embolism (Chronic ~04/2017) On chronic anticoagulation Anticoagulated on Coumadin (Chronic) Erectile dysfunction (Chronic) Class 3 severe obesity with body mass index (BMI) of 50.0 to 59.9 in adult (Chronic) Cigarette smoker (Chronic) Medical History Hodgkin lymphoma (~04/2019) S/p chemo, radiation. Followed by [facility] Oncology Pulmonary embolism (~04/2017) Neutropenic fever Lower GI bleeding Surgical History H/O neck surgery Biopsy of left neck mass Family History Mother No problems noted. Father No problems noted. Sister No problems noted. Maternal Grandfather Stroke Paternal Grandfather No problems noted. Maternal Grandmother Heart disease Stroke Paternal Grandmother No problems noted. 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 Pets and animals: No Sexually active: Yes Do you think of yourself as: straight/heterosexual Current gender identity: decline to answer What is your relationship status?: living with partner How often do you talk on the phone with friends or family?: decline to answer How often do you get together with friends or relatives?: decline to answer Do you belong to any clubs or organized social groups?: decline to answer Panel score (0-1 are the most socially isolated patients): 1 Seatbelt use: always Drive intox or ride w/intox star route mail driver: No Do you feel safe at home: Yes Do you feel safe in your relationship?: Yes Exam Const Other: Morbidly obese man sitting in a recliner no acute distress Neck Other: Unable to assess JVP. Carotid pulsations are grossly normal no bruits Resp Auscultation: clear to auscultation bilaterally Cardio Other: Heart is regular distant no murmur or gallop Extrem Other: 1-2+ edema a little worse on the right than the left Results Last Vital Signs Temp 36.8 C 02/11/25 08:41 Pulse 67 02/11/25 08:41 Resp 16 02/11/25 08:41 BP 124/78 08/15/25 08:41 Pulse Ox 99 02/11/25 08:41 Labs 02/11/25 06:25 02/11/25 06:25 Labs: Laboratory Results - last 24 hr 02/10/25 02/10/25 02/10/25 12:43 13:42 16:15 WBC 8.33 RBC 5.46 Hgb 16.5 Hct 47.5 MCV 87 MCH 30.2 MCHC 34.7 RDW 13.1 Plt Count 229 MPV 10.3 Immature Gran % 0.2 Neutrophils % 56.5 Lymphocytes % 29.5 Monocytes % 10.6 Eosinophils % 1.9 Basophils % 1.3 Nucleated RBC % 0.0 Absolute Neutrophils 4.70 Absolute Lymphocytes 2.46 Absolute Monocytes 0.88 H Absolute Eosinophils 0.16 Absolute Basophils 0.11 PT 28.0 H INR 3.0 H APTT 36.6 H D-Dimer 338 Sodium 141 Potassium 3.1 L Chloride 102 Carbon Dioxide 26.7 Anion Gap 12.3 H BUN 16 Creatinine 1.4 H Est GFR (CKD-EPI 2020) 59.36 Glucose 114 H Calcium 9.5 Magnesium 2.0 Total Bilirubin 0.7 AST 24 ALT 40 Alkaline Phosphatase 40 L Troponin I 6 6 NT-Pro-B Natriuret Pep 49 Total Protein 7.2 Albumin 3.9 Lipase 57 TSH 1.35 COVID-19 Source Nasopharynx SARS-CoV-2 (PCR) Negative Influenza Type A (PCR) Negative Influenza Type B (PCR) Negative RSV (PCR) Negative 02/11/25 06:25 WBC 5.72 RBC 4.99 Hgb 15.0 Hct 43.8 MCV 88 MCH 30.1 MCHC 34.2 RDW 13.2 Plt Count 176 MPV 10.2 Immature Gran % 0.2 Neutrophils % 52.3 Lymphocytes % 28.8 Monocytes % 12.4 Eosinophils % 4.4 Basophils % 1.9 Nucleated RBC % 0.0 Absolute Neutrophils 2.99 Absolute Lymphocytes 1.65 Absolute Monocytes 0.71 Absolute Eosinophils 0.25 Absolute Basophils 0.11 PT 28.5 H INR 3.1 H APTT D-Dimer Sodium 143 Potassium 3.4 L Chloride 105 Carbon Dioxide 31.3 Anion Gap 6.7 BUN 11 Creatinine 0.9 Est GFR (CKD-EPI 2020) 100.86 Glucose 98 Calcium 8.8 Magnesium Total Bilirubin AST ALT Alkaline Phosphatase Troponin I NT-Pro-B Natriuret Pep Total Protein Albumin Lipase TSH COVID-19 Source SARS-CoV-2 (PCR) Influenza Type A (PCR) Influenza Type B (PCR) RSV (PCR)
--- NOTE | 2025-02-11 11:25 | CMDISCH_ITS ---
Date of service: 02/11/25 Time of Service: 11:26 LACE Index Scoring Tool Questions: Length of Stay (in days): 1 Was the patient admitted via the E.D.?: Yes E.D. Visits: 1 Answers: Total Score: 5 Risk of Readmission: Low Risk Care Management Discharge Plan Reason for Hospitalization: Chest pain, GOPAL Discharge Plan: Jarrod is discharged home via private vehicle with family. Patient will follow up with community providers (PCP/Cardiology) and continue p er discharge plan of care. No new services are ordered prior to discharge. Patient/Family Education Needs: Review discharge instructions and plan for outpatient follow up. Discuss ask me three. SDOH Health Related Social Needs: Health related social needs risk of homeless
== END 2025-02-11 11:44 | disposition home or self-care (01) ==
LOC: ER 15:32 → MS 17:16
PROVIDERS: Admitting Provider Family Medicine; Emergency Provider Physician Assistant; PCP Nurse Practitioner Family; Responsible Provider Nurse Practitioner Acute Care; Visit Provider Family Medicine
DX: R07.89 Other chest pain (principal); R06.02 Shortness of breath; N17.9 Acute kidney failure, unspecified; I10 Essential (primary) hypertension; E78.5 Hyperlipidemia, unspecified; R61 Generalized hyperhidrosis; E66.01 Morbid (severe) obesity due to excess calories; F17.210 Nicotine dependence, cigarettes, uncomplicated; I71.21 Aneurysm of the ascending aorta, without rupture; Z68.43 Body mass index [BMI] 50.0-59.9, adult; Z79.01 Long term (current) use of anticoagulants; Z86.711 Personal history of pulmonary embolism; C81.9A Hodgkin lymphoma, unspecified, in remission; Z79.85 Long-term (current) use of injectable non-insulin antidiabetic drugs
CPT/HCPCS: 00123; 36415; 71275; 80048; 80053; 83690; 87637; 93005; 96361; 96374; 99285; 74174; 83735; 83880; 84443; 84484; 85025; 85379; 85610; 85730; 93010; 99223; 99239; G0378; J2270; J3480

== ENCOUNTER 2025-03-02 15:01 | Outpatient (CLI) | payer BC, SELFPAY ==
[2025-03-02 12:38] LABS: INR 2.7 (0.9-1.1); Prothrombin Time 25.3 sec (9.1-11.1)
== END 2025-03-02 15:02 | disposition home or self-care (01) ==
LOC: LOS 15:01
PROVIDERS: PCP Nurse Practitioner Family; Visit Provider Nurse Practitioner Family
DX: Z79.01 Long term (current) use of anticoagulants (principal); Z86.711 Personal history of pulmonary embolism
CPT/HCPCS: 36415; 85610

== ENCOUNTER 2025-04-06 03:38 | Outpatient (CLI) | payer OTHER, SELFPAY ==
[2025-04-06 14:23] LABS: INR 2.7 (0.9-1.1); Prothrombin Time 25.7 sec (9.1-11.1)
== END 2025-04-06 03:39 | disposition home or self-care (01) ==
LOC: LOS 03:38
PROVIDERS: PCP Nurse Practitioner Family; Visit Provider Nurse Practitioner Family
DX: Z79.01 Long term (current) use of anticoagulants (principal); Z86.711 Personal history of pulmonary embolism
CPT/HCPCS: 36415; 85610

== ENCOUNTER 2025-05-11 01:53 | Outpatient (CLI) | payer OTHER, SELFPAY ==
[2025-05-11 14:18] LABS: INR 3.0 (0.9-1.1); Prothrombin Time 27.8 sec (9.1-11.1)
== END 2025-05-11 01:54 | disposition home or self-care (01) ==
LOC: LOS 01:53
PROVIDERS: PCP Nurse Practitioner Family; Visit Provider Nurse Practitioner Family
DX: Z79.01 Long term (current) use of anticoagulants (principal); Z86.711 Personal history of pulmonary embolism
CPT/HCPCS: 36415; 85610

== ENCOUNTER 2025-06-14 01:28 | Outpatient (CLI) | payer OTHER, SELFPAY ==
[2025-06-14 13:51] LABS: INR 2.3 (0.9-1.1); Prothrombin Time 22.2 sec (9.1-11.1)
== END 2025-06-14 01:29 | disposition home or self-care (01) ==
LOC: LOS 01:28
PROVIDERS: PCP Nurse Practitioner Family; Visit Provider Nurse Practitioner Family
DX: Z79.01 Long term (current) use of anticoagulants (principal); Z86.711 Personal history of pulmonary embolism
CPT/HCPCS: 36415; 85610